=== PATIENT | female | born 1975 | race Caucasian/White ===

== ENCOUNTER 2017-07-26 15:31 | Emergency (ER) | payer OTHER ==
[~2017-07-26] VITALS: Ht 170.2 cm; Wt 80.3 kg
[~2017-07-26 15:31] MED LIST: CYCLOBENZAPRINE10 MG PO; NAPROSYN500 MG PO
[2017-07-26] MEDS ORDERED: BACLOFEN10 MG PO (16:29)
[2017-07-26] MEDS ORDERED: METHYLPREDNISOLO4 M1 PO (16:29)
== END 2017-07-26 16:37 | disposition home or self-care (01) ==
LOC: ED 15:31
DX: M70.72 Other bursitis of hip, left hip (principal); F17.200 Nicotine dependence, unspecified, uncomplicated
CPT/HCPCS: 73502; 99283

== ENCOUNTER 2019-06-08 12:00 | Emergency (ER) | payer BC ==
[~2019-06-08] VITALS: Ht 170.2 cm; Wt 180.0 kg
--- OUTSIDE RECORDS SUMMARY | ~2019-06-08 | XMS | Encounter Summary ---
Demographics + + + | Address | [address] | | | [place] [address] | + + + | Home Phone | | + + + | Preferred Language | Unknown | + + + | Marital Status | Single | + + + | Sabianist Affiliation | 1009 | + + + | Race | Unknown | + + + | Ethnic Group | Unknown | + + + Author + + + | Author | [facility] | | | and [place] | + + + | Organization | [facility] | | | and [place] | + + + | Address | Unknown | + + + | Phone | Unavailable | + + + Support + + +---------+ + | Name | Relationship | Address | Phone | + + +---------+ + | Ed [place] | ECON | Unknown | | + + +---------+ + Care Team Providers + +------+ + | Care Scooping Machine Tender Name | Role | Phone | + +------+ + | Irene Cortes MD | PCP | | + +------+ + Reason for Visit + + + | Reason | Comments | + + + | Procedure | left shoulder injection | + + + Service/Procedure (Routine) +--------+--------+ + + + + | Status | Reason | Specialty | Diagnoses / | Referred By | Referred To | | | | | Procedures | Contact | Contact | +--------+--------+ + + + + | Closed | | Physical | Diagnoses | Shaun, | Shaun, | | | | Medicine and | Subacromial | GIGI Sena | GIGI Sena | | | | Rehabilitatio | bursitis of | [address] | | | n | left | [address] | [address] | | | | | shoulder | [address] | [place], | | | | | joint | [place], | [place] [address] | | | | | Procedures | [place] [address] | Phone: | | | | | [place] | Phone: | [phone] | | | | | ARTHROCENTES | [phone] | Fax: | | | | | [place] | Fax: | [phone] | | | | | ASPIR&/INJ | [phone] | | | | | | MAJOR | | | | | | | JT/BURSA W/O | | | | | | | [place] | | | | | | | TRIAMCINOLON | | | | | | | E ACET INJ | | | | | | | NOS, 10 MG | | | | | | | In | | | | | | | Office | | | | | | | Left | | | | | | | Subacromial | | | | | | | Shoulder | | | | | | | Injection | | | +--------+--------+ + + + + Encounter Details +--------+ + + + + | Date | Type | Department | Care Team | Description | +--------+ + + + + | 07/26/ | Procedure | [facility] [place] | Nathen Dunn, | Subacromial bursitis | | 2019 | visit | PHYSIATRY [address] | PA-C [address] | of left shoulder | | | | [place], | [address] [place] | joint (Primary Dx) | | | | [place] [address] | [place] [address] | | | | | [phone] | [phone] | | | | | | | | +--------+ + + + + Social History + + + +--------+------+ | Tobacco Use | Types | Packs/Day | Years | Date | | | | | Used | | + + + +--------+------+ | Current Every Day | Cigarettes | 1.5 | | | | Smoker | | | | | + + + +--------+------+ + +---+---+---+ | Smokeless Tobacco: | | | | | Never Used | | | | + +---+---+---+ + + +---------+ + | Alcohol Use | Drinks/Week | oz/Week | Comments | + + +---------+ + | Yes | | | Rare | + + +---------+ + + + + | Sex Assigned at | Date Recorded | | | | + + + | Not on file | | + + + + + + + | Job Start Date | Occupation | Industry | + + + + | Not on file | Not on file | Not on file | + + + + + + + + | Travel History | Travel Start | Travel End | + + + + + + | No recent travel history available. | + + documented as of this encounter Last Filed Vital Signs + + + + + | Vital Sign | Reading | Time Taken | Comments | + + + + + | Blood Pressure | 156/94 | 07/26/2018 4:10 PM | | | | | PST | | + + + + + | Pulse | 86 | 07/26/2018 4:10 PM | | | | | PST | | + + + + + | Temperature | - | - | | + + + + + | Respiratory Rate | - | - | | + + + + + | Oxygen Saturation | - | - | | + + + + + | Inhaled Oxygen | - | - | | | Concentration | | | | + + + + + | Weight | 88 kg (194 lb) | 07/26/2018 4:10 PM | | | | | PST | | + + + + + | Height | 170.2 cm (5' 7") | 07/26/2018 4:10 PM | | | | | PST | | + + + + + | Body Mass Index | 30.38 | 07/26/2018 4:10 PM | | | | | PST | | + + + + + documented in this encounter Patient Instructions Patient Instructions Nathen Dunn PA-C - 07/26/2018 4:20 PM PSTFormatting of this note m ight be different from the original. - Ice the area as needed 20 minutes per hour. Multiple times as needed over the next few d ays. - Watch for signs of infection (redness around injection site, swelling, fever) - No strenuous activity for 24-48 hours after the procedure. - Please call the office with questions or concerns. Understanding Subscapular Bursitis A bursa is a thin, slippery, sac-like film that contains a small amount of fluid. A bursa i s often found in and around joints. It cushions and protects bones and soft tissues, and sto ps them from rubbing against each other. If a bursa becomes inflamed and irritated, it is kn own as bursitis. The subscapularis muscle is a large muscle across the front of the shoulder blade. The subs capular bursa is found between the subscapularis muscle and the chest wall. Inflammation of this bursa is called subscapular bursitis. Causes of subscapular bursitis These may include: Overuse of the shoulder from things like reaching, lifting, and throwing Injury from a fall or other accident Having rheumatoid arthritis or other types of inflammatory arthritis Symptoms of subscapular bursitis The shoulder may be painful or aching. This pain may be worse when raising your arm or lyin g on the affected shoulder. Treatment for subscapular bursitis These may include: Resting your shoulder. This allows the bursa to heal. Prescription or gzes-vco-nrqrkyp pain medicines. These help reduce inflammation, pain, a nd swelling. Cold packs or heat packs. These help reduce pain and swelling. Exercises. These improve shoulder flexibility and strength. Physical therapy. This may include exercises, postural re-education, or other treatments . Injections of medicine into the bursa. This may help reduce inflammation and relieve sym ptoms. Possible complications If your shoulder isn t given time to heal, symptoms may return or get worse. Also, the pr oblem may become long-term (chronic). This can lead to trouble moving the shoulder joint. When to call your healthcare provider Call your healthcare provider right away if you have any of these: Fever of 100.4F (38C) or higher, or as directed Symptoms that don t get better with treatment, or get worse New symptoms Date Last Reviewed: 08/08/201519995868-0433 [employer]. [address] [place] [address]. All righ ts reserved. This information is not intended as a substitute for professional medical care. Always follow your healthcare professional's instructions. documented in this encounter Progress Notes Nathen Dunn PA-C - 07/26/2018 4:20 PM PSTFormatting of this note might be different fro m the original. Encounter Diagnosis Name Primary? Subacromial bursitis of left shoulder joint Yes HPI: Laine Villatoro is a 43 y.o. female who is being seen today in followup for continued L EFT shoulder pain. The patient has been seen for these complaints in the past. Previously alejandro caraballo had good relief following procedure. Patient is interested in receiving subacromial bu rsa injections today and I did feel that was appropriate. Description of procedure: After the patient gave consent for the procedure the areas for i njection on the LEFT shoulder was located by palpation and marked. The areas were then prep ped with Betadine swabs and alcohol. A 25 gauge 1 1/2 inch needle was then inserted into th e subacromial space. Attempted aspiration showed no fluid in the needle hub. A combination of 1 mL of 40 mg/mL Kenalog and 2 mL each of 0.5% Bupivicaine and 1% Lidocaine was injected . The patient tolerated the procedures well and was instructed to ice the areas for 15-20 min utes several times over the next few days and to watch for any signs of infection. Patient will follow-up with as needed. ELECTRONICALLY SIGNED BY: Nathen Dunn PA-C, 07/26/18 documented in this en counter Plan of Treatment Not on filedocumented as of this encounter Visit Diagnoses + + | Diagnosis | + + | Subacromial bursitis of left shoulder joint - Primary | + + documented in this encounter Administered Medications + + + +-------+------+ + | Medication Order | MAR | Action | Dose | Rate | Site | | | Action | Date | | | | + + + +-------+------+ + | lidocaine 1% injection 4 mL 4 | Given by | 07/26/19 | 4 mLs | | Other | | mL, Other, ONCE, 07/26/18 at | Other | 19 4:33 | | | (Comment | | 1645, For 1 dose | | PM PST | | | ) | + + + +-------+------+ + +---+---+ | | | +---+---+ + + + +-------+---+ + | triamcinolone acetonide | Given by | 07/26/19 | 40 mg | | Other | | (KENALOG-40) 40 mg/mL injection | Other | 19 4:34 | | | (Comment | | 40 mg 40 mg, Other, ONCE, Tue | | PM PST | | | ) | | 07/26/18 at 1645, For 1 dose, | | | | | | | Shake well. Not for IV use., | | | | | | + + + +-------+---+ + +---+---+ | | | +---+---+ documented in this encounter
--- OUTSIDE RECORDS SUMMARY | ~2019-06-08 | XMS | Encounter Summary ---
Demographics + + + | Address | [address] | | | [place] [address] | + + + | Home Phone | | + + + | Preferred Language | Unknown | + + + | Marital Status | Single | + + + | Samaritan Affiliation | 1009 | + + + | Race | Unknown | + + + | Ethnic Group | Unknown | + + + Author + + + | Author | [facility] | | | and [place] | + + + | Organization | [facility] | | | and [place] | + + + | Address | Unknown | + + + | Phone | Unavailable | + + + Support + + +---------+ + | Name | Relationship | Address | Phone | + + +---------+ + | Ed [place] | ECON | Unknown | | + + +---------+ + Care Team Providers + +------+ + | Care Bench Molder Apprentice Name | Role | Phone | + +------+ + | Jacqueline Lozano | PCP | | + +------+ + Encounter Details +--------+ + + + + | Date | Type | Department | Care Team | Description | +--------+ + + + + | 11/12/ | Abstract | [facility] [place] | Sanju Brown, | | | 2017 | | PHYSIATRY [address] | MD [address] | | | | | [place], | [place] | | | | | [place] [address] | [address] | | | | | [phone] | | | +--------+ + + + [...] +---------+ + | Yes | | | Occasionally | + + +---------+ + + + [...] + + documented as of this encounter Plan of Treatment Not on filedocumented as of this encounter Visit Diagnoses Not on filedocumented in this encounter"
--- OUTSIDE RECORDS SUMMARY | ~2019-06-08 | XMS | Encounter Summary ---
Demographics + + + | Address | [address] | | | [place] [address] | + + + | Home Phone | | + + + | Preferred Language | Unknown | + + + | Marital Status | Single | + + + | Hinduism Affiliation | 1009 | + + + | Race | Unknown | + + + | Ethnic Group | Unknown | + + + Author + + + | Author | [facility] | | | and [place] | + + + | Organization | [facility] | | | and [place] | + + + | Address | Unknown | + + + | Phone | Unavailable | + + + Support + + +---------+ + | Name | Relationship | Address | Phone | + + +---------+ + | Ed [place] | ECON | Unknown | | + + +---------+ + Care Team Providers + +------+ + | Care Veneer Manufacturer Name | Role | Phone | + +------+ + | Rosalba Huerta | PCP | | + +------+ + Encounter Details +--------+ + + + + | Date | Type | Department | Care Team | Description | +--------+ + + + + | 03/02/ | Orders Only | [facility] [place] | Sanju Brown, | Joint stiffness | | 2018 | | PHYSIATRY [address] | MD [address] | (Primary Dx) | | | | [place], | [place] | | | | | [place] [address] | [id number] | | | | | [phone] | | | +--------+ + + + [...] + + documented as of this encounter Progress Notes Isabelle Boateng, Budget Engineer - 03/02/2018 10:52 AM PDTCalled to inform Laine Villatoro of lab orders for rheumatology consult. Laine Villatoro would like to have labs done at [facility]. Orders were faxed. Electronically signed by Isabelle Boateng, Budget Engineer at 2017 1:22 PM PDTdocumented in this encounter Plan of Treatment + +------+--------+ + + | Name | Type | Priori | Associated Diagnoses | Order Schedule | | | | ty | | | + +------+--------+ + + | C-Reactive Protein | Lab | Routin | Joint stiffness | 1 Occurrences | | | | e | | starting 03/02/2018 | | | | | | until 03/02/2019 | + +------+--------+ + + | Sedimentation Rate | Lab | Routin | Joint stiffness | Expected: | | | | e | | 03/02/2018, Expires: | | | | | | 03/02/2019 | + +------+--------+ + + | Rheumatoid Factor | Lab | Routin | Joint stiffness | 1 Occurrences | | IgA, IgG and IgM | | e | | starting 03/02/2018 | | | | | | until 03/02/2019 | + +------+--------+ + + documented as of this encounter Visit Diagnoses + + | Diagnosis | + + | Joint stiffness - Primary Stiffness of joint, not elsewhere classified, unspecified | | site | + + documented in this encounter"
--- OUTSIDE RECORDS SUMMARY | ~2019-06-08 | XMS | Encounter Summary ---
Demographics + + + | Address | [address] | | | [place] [address] | + + + | Home Phone | | + + + | Preferred Language | Unknown | + + + | Marital Status | Single | + + + | Yazidism Affiliation | Unknown | + + + | Race | White | + + + | Ethnic Group | Not or | + + + Author + + + | Author | [facility] | + + + | Organization | [facility] | + + + | Address | Unknown | + + + | Phone | Unavailable | + + + Support + + +---------+ + | Name | Relationship | Address | Phone | + + +---------+ + | Ed [place] | ECON | Unknown | | + + +---------+ + Care Team Providers + +------+ + | Care Cobol Application Developer Name | Role | Phone | + +------+ + PCP | Unavailable | + +------+ + Encounter Details +--------+ + + + + | Date | Type | Department | Care Team | Description | +--------+ + + + + | 02/24/ | Abstract | Rheumatology at | Unknown . | | | 2019 | | [facility] | | | | | | [address] | | | | | | [address] Mailcode: OP09 | | | | | | Physician's | | | | | | [place], [address] [place] [address] | | | | | | [place], [place] | | | | | | [address] | | | | | | [phone] | | | +--------+ + + + + Social History + +-------+ +--------+------+ | Tobacco Use | Types | Packs/Day | Years | Date | | | | | Used | | + +-------+ +--------+------+ | Never Assessed | | | | | + +-------+ +--------+------+ + + + | Sex Assigned at [...] as of this encounter Plan of Treatment +--------+---------+ + + + | Date | Type | Specialty | Care Team | Description | +--------+---------+ + + + | 08/09/ | Office | Rheumatology | Katlyn Nielson | | | 2020 | Visit | | [place] [address] | | | | | | [address] | | | | | | [place], [place] | | | | | | [address] | | | | | | [phone] | | | | | | | | +--------+---------+ + + + documented as of this encounter Visit Diagnoses Not on filedocumented in this encounter"
--- OUTSIDE RECORDS SUMMARY | ~2019-06-08 | XMS | Encounter Summary ---
Demographics + + + | Address | [address] | | | [place] [address] | + + + | Home Phone | | + + + | Preferred Language | Unknown | + + + | Marital Status | Single | + + + | Taoism Affiliation | 1009 | + + + | Race | Unknown | + + + | Ethnic Group | Unknown | + + + Author + + + | Author | [facility] | | | and [place] | + + + | Organization | [facility] | | | and [place] | + + + | Address | Unknown | + + + | Phone | Unavailable | + + + Support + + +---------+ + | Name | Relationship | Address | Phone | + + +---------+ + | Ed [place] | ECON | Unknown | | + + +---------+ + Care Team Providers + +------+ + | Care Appliance Service Technician Name | Role | Phone | + +------+ + | Jacqueline Lozano | PCP | | + +------+ + Reason for Visit + + + | Reason | Comments | + + + | Leg Pain | | | (Non-traumatic) | | + + + Encounter Details +--------+ + + + + | Date | Type | Department | Care Team | Description | +--------+ + + + + | 08/05/ | Emergency | [facility] | Marjan Del Cid MD | Left hip pain | | 2018 | | [facility] | [address] | (Primary Dx) | | | | CENTER [address] | [place], [place] | | | | | [place], [place] | [address] | | | | | [address] | | | | | | [phone] | | | +--------+ + + + + Social History + +-------+ +--------+------+ | Tobacco Use | Types | Packs/Day | Years | Date | | | | | Used | | + +-------+ +--------+------+ | Current Every Day | | | | | | Smoker | | | | | + +-------+ +--------+------+ + +---+---+---+ | Smokeless Tobacco: | | | | | Never Used | | | | + +---+---+---+ + + +---------+ + | Alcohol Use | Drinks/Week | oz/Week | Comments | + + +---------+ + | No | | | | + + +---------+ + + + [...] + + + | Blood Pressure | 116/53 | 08/05/2017 9:29 PM | | | | | PST | | + + + + + | Pulse | 78 | 08/05/2017 9:29 PM | | | | | PST | | + + + + + | Temperature | 36.9 C (98.5 F) | 08/05/2017 7:03 PM | | | | | PST | | + + + + + | Respiratory Rate | 16 | 08/05/2017 7:03 PM | | | | | PST | | + + + + + | Oxygen Saturation | 99% | 08/05/2017 9:29 PM | | | | | PST | | + + + + + | Inhaled Oxygen | - | - | | | Concentration | | | | + + + + + | Weight | 83.9 kg (185 lb) | 08/05/2017 7:03 PM | | | | | PST | | + + + + + | Height | 170.2 cm (5' 7") | 08/05/2017 7:03 PM | | | | | PST | | + + + + + | Body Mass Index | 28.98 | 08/05/2017 7:03 PM | | | | | PST | | + + + + + documented in this encounter Discharge Instructions AttachmentsThe following attachments cannot be sent through Care Everywhere.Hip Strain (Karen dooley)documented in this encounter Medications at Time of Discharge + + + +---------+ + + | Medication | Sig | Dispensed | Refills | Start | End Date | | | | | | Date | | + + + +---------+ + + | baclofen | Take 1 tablet by | 20 | 0 | 03/08/20 | | | (LIORESAL) 10 mg | mouth every 8 hours | tablet | | 18 | 8 | | tablet | as needed. | | | | | + + + +---------+ + + | buPROPion | Take 300 mg by mouth | | 0 | | | | (WELLBUTRIN XL) 300 | every morning. | | | | 8 | | mg 24 hr tablet | | | | | | + + + +---------+ + + | ibuprofen | Take 1 tablet by | 30 | 0 | 08/06/19 | | | (ADVIL,MOTRIN) 600 | mouth every 6 hours | tablet | | 18 | 8 | | MG tablet | as needed for Pain. | | | | | + + + +---------+ + + | propranolol | Take 80 mg by mouth | | 0 | | | | (INDERAL LA) 80 mg | Daily. | | | | 8 | | SR capsule | | | | | | + + + +---------+ + + documented as of this encounter Plan of Treatment Not on filedocumented as of this encounter Visit Diagnoses + + | Diagnosis | + + | Left hip pain - Primary Pain in joint, pelvic region and thigh | + + documented in this encounter Administered Medications + +--------+ +-------+------+------+ | Medication Order | MAR | Action | Dose | Rate | Site | | | Action | Date | | | | + +--------+ +-------+------+------+ | baclofen (LIORESAL) tablet 10 | Given | 08/06/19 | 10 mg | | | | mg 10 mg, Oral, ONCE, [facility] 08/05/17 | | 18 10:00 | | | | | at 2145, For 1 dose | | PM PST | | | | + +--------+ +-------+------+------+ +---+---+ | | | +---+---+ + +-------+ +-------+---+ + | ketorolac (TORADOL) injection | Given | 08/06/19 | 15 mg | | Deltoid- | | 15 mg 15 mg, Intramuscular, | | 18 9:45 | | | Left | | ONCE, [facility] 08/05/17 at 2145, For 1 | | PM PST | | | | | dose | | | | | | + +-------+ +-------+---+ + +---+---+ | | | +---+---+ documented in this encounter
--- OUTSIDE RECORDS SUMMARY | ~2019-06-08 | XMS | Encounter Summary ---
Demographics + + + | Address | [address] | | | [place] [address] | + + + | Home Phone | | + + + | Preferred Language | Unknown | + + + | Marital Status | Single | + + + | Nondenominational Affiliation | 1009 | + + + | Race | Unknown | + + + | Ethnic Group | Unknown | + + + Author + + + | Author | [facility] | | | and [place] | + + + | Organization | [facility] | | | and [place] | + + + | Address | Unknown | + + + | Phone | Unavailable | + + + Support + + +---------+ + | Name | Relationship | Address | Phone | + + +---------+ + | Ed [place] | ECON | Unknown | | + + +---------+ + Care Team Providers + +------+ + | Care Abseiling Instructor Name | Role | Phone | + +------+ + | Irene Cortes MD | PCP | | + +------+ + Reason for Visit + + + | Reason | Comments | + + + | Medication Refill | | + + + Encounter Details +--------+--------+ + + + | Date | Type | Department | Care Team | Description | +--------+--------+ + + + | 03/17/ | Refill | [facility] [place] | Nathen Dunn, | Medication Refill | | 2018 | | PHYSIATRY [address] | PA-C [address] | | | | | [place], | [address] [place] | | | | | [place] [address] | [place] [address] | | | | | [phone] | [phone] | | | | | | | | +--------+--------+ + + + Social History + + [...]
--- OUTSIDE RECORDS SUMMARY | ~2019-06-08 | XMS | Encounter Summary ---
Demographics + + + | Address | [address] | | | [place] [address] | + + + | Home Phone | | + + + | Preferred Language | Unknown | + + + | Marital Status | Single | + + + | Druze Affiliation | 1009 | + + + | Race | Unknown | + + + | Ethnic Group | Unknown | + + + Author + + + | Author | [facility] | | | and [place] | + + + | Organization | [facility] | | | and [place] | + + + | Address | Unknown | + + + | Phone | Unavailable | + + + Support + + +---------+ + | Name | Relationship | Address | Phone | + + +---------+ + | Ed [place] | ECON | Unknown | | + + +---------+ + Care Team Providers + +------+ + | Care Felt Puller Name | Role | Phone | + +------+ + PCP | Unavailable | + +------+ + Reason for Visit + + + | Reason | Comments | + + + | Surgery Appointment | | + + + Encounter Details +--------+ + + + + | Date | Type | Department | Care Team | Description | +--------+ + + + + | 01/17/ | Telephone | [facility] | Raul Monaco, | Surgery Appointment | | 2019 | | SURGICAL | [place] [address] | | | | | SPECIALITIES | [address] | | | | | ORTHOPEDICS BROACHING MACHINE REPAIRER | [place], [place] | | | | | [address] | [address] | | | | | [address] [place] | | | | | | [place], [place] | | | | | | [address] | | | | | | [phone] | | | +--------+ + + + [...]
--- OUTSIDE RECORDS SUMMARY | ~2019-06-08 | XMS | Encounter Summary ---
Demographics + + + | Address | [address] | | | [place] [address] | + + + | Home Phone | | + + + | Preferred Language | Unknown | + + + | Marital Status | Single | + + + | Latter-Day Affiliation | Unknown | + + + | Race | White | + + + | Ethnic Group | Not or | + + + Author + + + | Author | [facility] | + + + | Organization | [facility] | + + + | Address | Unknown | + + + | Phone | Unavailable | + + + Support + + +---------+ + | Name | Relationship | Address | Phone | + + +---------+ + | Ed [place] | ECON | Unknown | | + + +---------+ + Care Team Providers + +------+ + | Care Landscape Manager Name | Role | Phone | + [...] | | | | | | [place], [address] [place] [address] | | | | | | [place], [place] | | | | | | [address] | | | | | | [phone] | | | +--------+ + + + [...] 2020 | Visit | | [place] [address] | | | | | | [address] | | | | | | [place], [place] | | | | | | [address] | | | | | | [phone] | | | | | | | | +--------+---------+ + + + documented as of this encounter Visit Diagnoses Not on filedocumented in this encounter"
--- OUTSIDE RECORDS SUMMARY | ~2019-06-08 | XMS | Encounter Summary ---
Demographics + + + | Address | [address] | | | [place] [address] | + + + | Home Phone | | + + + | Preferred Language | Unknown | + + + | Marital Status | Single | + + + | Latter-Day Affiliation | 1009 | + + + | Race | Unknown | + + + | Ethnic Group | Unknown | + + + Author + + + | Author | [facility] | | | and [place] | + + + | Organization | [facility] | | | and [place] | + + + | Address | Unknown | + + + | Phone | Unavailable | + + + Support + + +---------+ + | Name | Relationship | Address | Phone | + + +---------+ + | Ed Amory | ECON | Unknown | | + + +---------+ + Care Team Providers + +------+ + | Care Transfill Technician Name | Role | Phone | + +------+ + PCP | Unavailable | + +------+ + Encounter Details +--------+ + + + + | Date | Type | Department | Care Team | Description | +--------+ + + + + | 11/13/ | Hospital | [facility] | Conversion | Threatened premature | | 2000 - | Encounter | [facility] | Transaction, | labor, | | | | AND DELIVERY 888 | Provider Unknown | antepartum(644.03) | | 11/16/ | | ROSIBEL RIDER | | | | 2000 | | [place], [place] | (Fax) | | | | | [address] | | | | | | [phone] | | | +--------+ + + + [...] + | Diagnosis | + + | Threatened premature labor, antepartum(644.03) Threatened premature labor, antepartum | + + documented in this encounter"
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
--- OUTSIDE RECORDS SUMMARY | ~2019-06-08 | XMS | Clinical Summary ---
Demographics + + + | Address | [address] | | | [place] [address] | + + + | Home Phone | | + + + | Preferred Language | Unknown | + + + | Marital Status | Single | + + + | Confucianist Affiliation | Unknown | + + + | Race | White | + + + | Ethnic Group | Not or | + + + Author + + + | Author | [facility] | + + + | Organization | [facility] | + + + | Address | Unknown | + + + | Phone | Unavailable | + + + Support + + +---------+ + | Name | Relationship | Address | Phone | + + +---------+ + | Ed [place] | ECON | Unknown | | + + +---------+ + Care Team Providers + +------+ + | Care Composition Professor Name | Role | Phone | + +------+ + | Irene Cortes MD | PCP | | + +------+ + Source Comments VANNESSA is fully live on both [facility] and [facility] InPatient[facility] Allergies Not on File Medications Not on file Active Problems Not on file Social History + +-------+ +--------+------+ | Tobacco [...] recent travel history available. | + + Last Filed Vital Signs Not on file Plan of Treatment +--------+---------+ + + + | Date | Type | Specialty | Care Team | Description | +--------+---------+ + + + | 08/09/ | Office | Rheumatology | Katlyn Nielson | | | 2020 | Visit | | [place] [address] | | | | | | [address] | | | | | | [place], [place] | | | | | | [address] | | | | | | [phone] | | | | | | | | +--------+---------+ + + + + + + + + | Health Maintenance | Due Date | Last Done | Comments | + + + + + | Influenza (Flu) | | | | | vaccination (#1) | 9 | | | + + + + + | Pneumococcal | Aged Out | | No longer eligible | | vaccination | | | based on patient's | | | | | age to complete this | | | | | topic | + + + + + Results Not on filefrom Last 3 Months Insurance + +--------+ +--------+ + +------+ | Payer | Benefi | Subscriber | Effect | Phone | Address | Type | | | t Plan | ID | susana | | | | | | / | | Dates | | | | | | Group | | | | | | + +--------+ +--------+ + +------+ | [employer]UE | BCBS | [phone] | | [phone] | [address] | PPO | | SHIELD | OUT OF | xxx | [phone] | [id number] [address] | | | | STATE | | esent | | [place], | | | | | | | | [place] | | | | | | | | [address] | | + +--------+ +--------+ + +------+ + +--------+ +--------+ + + | Guarantor Name | Accoun | Relation to | Date | Phone | Billing Address | | | t Type | Patient | of | | | | | | | | | | + +--------+ +--------+ + + | Laine Villatoro P | Person | Self | [birth year] | [address] | | al/Fam | | 1976 | [phone] | [place] [address] | | | [place] | | | 4 (Home) | | + +--------+ +--------+ + +"
--- OUTSIDE RECORDS SUMMARY | ~2019-06-08 | XMS | Encounter Summary ---
Demographics + + + | Address | [address] | | | [place] [address] | + + + | Home Phone | | + + + | Preferred Language | Unknown | + + + | Marital Status | Single | + + + | Oriental Orthodox Affiliation | 1009 | + + + | Race | Unknown | + + + | Ethnic Group | Unknown | + + + Author + + + | Author | [facility] | | | and [place] | + + + | Organization | [facility] | | | and [place] | + + + | Address | Unknown | + + + | Phone | Unavailable | + + + Support + + +---------+ + | Name | Relationship | Address | Phone | + + +---------+ + | Ed Casa | ECON | Unknown | | + + +---------+ + Care Team Providers + +------+ + | Care Carpentry Teacher Name | Role | Phone | + +------+ + | Jacqueline Lozano | PCP | | + +------+ + Reason for Visit + + + | Reason | Comments | + + + | Lab Results | | + + + Encounter Details +--------+ + + + + | Date | Type | Department | Care Team | Description | +--------+ + + + + | 07/05/ | Telephone | [facility] | Sanju Brown, | Lab Results | | 2018 | | [address]SIATRY [address] | MD [address] | | | | | [place], | [place], [place] | | | | | [place] [address] | [address] | | | | | [phone] | | | +--------+ + + + [...]
--- OUTSIDE RECORDS SUMMARY | ~2019-06-08 | XMS | Clinical Summary ---
Demographics + + + | Address | [address] | | | [place] [address] | + + + | Home Phone | | + + + | Preferred Language | Unknown | + + + | Marital Status | | + + + | Sabianism Affiliation | 1009 | + + + | Race | Unknown | + + + | Ethnic Group | Unknown | + + + Author + + + | Author | [facility] (Historical as of | | | 01-14-19) | + + + | Organization | [facility] (Historical as of | | | 01-14-19) | + + + | Address | Unknown | + + + | Phone | Unavailable | + + + Support + + + + + | Name | Relationship | Address | Phone | + + + + + | [place],Freddy | ECON | [address] | | | | | [facility] [place] | | | | | [address] | | + + + + + Care Team Providers + +------+ + | Care Aircraft Cabin Cleaner Name | Role | Phone | + +------+ + | Jacqueline Lozano NP | PP | | + +------+ + Allergies No Known Allergies Current Medications + +------+-------+---------+------+------+-------+ | Prescription | Sig. | Disp. | Refills | Star | End | Statu | | | | | | t | Date | s | | | | | | Date | | | + +------+-------+---------+------+------+-------+ | CHANTIX CONTINUING | | | | 03/2 | | Activ | | MONTH CANDIS 1 MG | | | | 0/20 | | e | | tablet | | | | 17 | | | + +------+-------+---------+------+------+-------+ Active Problems No known active problems Family History + +------+--------+ + | Relation | Name | Status | Comments | + +------+--------+ + | Father | | Alive | | + +------+--------+ + | Mother | | Alive | | + +------+--------+ + Social History + +-------+ +--------+------+ | Tobacco Use | Types | Packs/Day | Years | Date | | | | | Used | | + +-------+ +--------+------+ | Former Smoker | | | | | + +-------+ +--------+------+ + + +---------+ + | Alcohol Use | Drinks/We | oz/Week | Comments | | | ek | | | + + +---------+ + | Yes | | | occasional | + + +---------+ + + + + | Sex Assigned at | Date Recorded | | | | + + + | Not on file | | + + + Last Filed Vital Signs + + + + | Vital Sign | Reading | Time Taken | + + + + | Blood Pressure | 124/69 | 09/02/2016 1:15 PM PDT | + + + + | Pulse | 63 | 09/02/2016 1:15 PM PDT | + + + + | Temperature | 36.7 C (98.1 F) | 09/02/2016 1:15 PM PDT | + + + + | Respiratory Rate | - | - | + + + + | Oxygen Saturation | - | - | + + + + | Inhaled Oxygen | - | - | | Concentration | | | + + + + | Weight | 82.1 kg (181 lb) | 09/02/2016 1:15 PM PDT | + + + + | Height | 172.7 cm (5' 8") | 09/02/2016 1:15 PM PDT | + + + + | Body Mass Index | 27.52 | 09/02/2016 1:15 PM PDT | + + + + Plan of Treatment + + + + + | Health Maintenance | Due Date | Last Done | Comments | + + + + + | Vaccine: | | | | | Dtap/Tdap/Td (1 - | 4 | | | | Tdap) | | | | + + + + + | Cervical Cancer | | | | | Screening (Pap) | 5 | | | + + + + + | Vaccine: Influenza | | | | | (#1) | 9 | | | + + + + + Results Not on filefrom Last 3 Months Insurance + +--------+ +------+-------+ + | Payer | Benefi | Subscriber | Type | Phone | Address | | | t Plan | ID | | | | | | / | | | | | | | Group | | | | | + +--------+ +------+-------+ + | MEDICAID | [place] | [id number] | | | [address] | | | [place] | | | | [place] | | | [place] | | | | [address] | | | [employer] | | | | | + +--------+ +------+-------+ + + +--------+ +--------+ + + | Guarantor Name | Accoun | Relation to | Date | Phone | Billing Address | | | t Type | Patient | of | | | | | | | | | | + +--------+ +--------+ + + | LAINE VILLATORO | Person | Self [birth year] | Work: | [address] | | | al/Fam | | 1976 | [phone] | [place] [address] | | | [address] | | | [address]: | | | | | | | | | | | | | | [phone] | | | | | | [phone] | | + +--------+ +--------+ + +
--- OUTSIDE RECORDS SUMMARY | ~2019-06-08 | XMS | Encounter Summary ---
Demographics + + + | Address | [address] | | | [place] [address] | + + + | Home Phone [...] Author + + + | Author | [facility] | | | and [place] | + + + | Organization | [facility] | | | and [place] | + + + | Address | Unknown | + + + | Phone | Unavailable | + + + Support + + +---------+ + | Name | Relationship | Address | Phone | + + +---------+ + | Ed [place] | ECON | Unknown | | + + +---------+ + Care Team Providers + +------+ + | Care Hall Clerk Name | Role | Phone | + +------+ + PCP | Unavailable | + +------+ + Reason for Visit +--------+ + | Reason | Comments | +--------+ + | Pain | | +--------+ + Encounter Details +--------+ + + + + | Date | Type | Department | Care Team | Description | +--------+ + + + + | 06/07/ | Telephone | [facility] | Nathen Dunn, | Pain | | 2019 | | PHYSIATRY [address] | PA-C [address] | | | | | [place], | [address] [place] | | | | | [place] [address] | [place] [address] | | | | | [phone] | [phone] | | | | | | | [...]
--- OUTSIDE RECORDS SUMMARY | ~2019-06-08 | XMS | Encounter Summary ---
Demographics + + + | Address | [address] | | | [place] [address] | + + + | Home Phone | | + + + | Preferred Language | Unknown | + + + | Marital Status | Single | + + + | Sikh Affiliation | 1009 | + + + | Race | Unknown | + + + | Ethnic Group | Unknown | + + + Author + + + | Author | [facility] [place] | | | and iGllesana | + + + | Organization | [facility] [place] | | | and [place] | + + + | Address | Unknown | + + + | Phone | Unavailable | + + + Support + + +---------+ + | Name | Relationship | Address | Phone | + + +---------+ + | Ed [place] | ECON | Unknown | | + + +---------+ + Care Team Providers + +------+ + | Care Radio Board Operator Name | Role | Phone | + +------+ + | Rosalba Huerta | PCP | | + +------+ + Encounter Details +--------+ + + + + | Date | Type | Department | Care Team | Description | +--------+ + + + + | 12/27/ | Orders Only | [facility] | Jeremy Goodwin | Ganglion cyst of | | 2017 | | ORTHOPEDIC SURGERY | [address] | finger of right hand | | | | [address] [facility] | Prince Khan | (Primary Dx) | | | | [place] | [place] [address] | | | | | [address] | [phone] | | | | | [phone] | | | +--------+ + + + [...] Not on filedocumented as of this encounter Results XR Hand Right 3 + Vw (12/30/2017 8:42 AM PDT) + + | Specimen | + + | | + + + + + | Narrative | Performed At | + + + | THREE VIEWS RIGHT HAND 12/30/2017 8:41 AM CLINICAL HISTORY: RIGHT | [facility] | | HAND GANGLION CYST COMPARISON: None available FINDINGS: The | | | bones are well-mineralized. No fracture or erosion is evident. | | | There are moderate to severe degenerative changes of the first CMC | | | joint, with slight subluxation of the base of the first metacarpal | | | relative to the trapezium. Joint spaces elsewhere are maintained. | | | No soft tissue abnormality is visible. IMPRESSION - 1. 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 Dictated | | | and Signed by: Willis Treviño MD Electronically signed: 12/30/2017 | | | 9:12 AM | | + + + + + | Procedure Note | + + | Jonathan, Rad Results In - 12/30/2017 9:15 AM PDT THREE VIEWS RIGHT HAND 12/30/2017 8:41 AM | | | | CLINICAL HISTORY: RIGHT HAND GANGLION CYST | | | | COMPARISON: None available | | | | FINDINGS: The bones are well-mineralized. No fracture or erosion is evident. | | There are moderate to severe degenerative changes of the first CMC joint, with | | slight subluxation of the base of the first metacarpal relative to the | | trapezium. Joint spaces elsewhere are maintained. No soft tissue abnormality | | is visible. | | | | IMPRESSION - | | 1. 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 | | | | Dictated and Signed by: Willis Treviño MD | | Electronically signed: 12/30/2017 9:12 AM | + + + +---------+ + + | Performing | Address | City/State/Zipcode | Phone Number | | Organization | | | | + +---------+ + + | [facility] | | | | + +---------+ + + documented in this encounter Visit Diagnoses + + | Diagnosis | + + | Ganglion cyst of finger of right hand - Primary | + + documented in this encounter"
--- OUTSIDE RECORDS SUMMARY | ~2019-06-08 | XMS | Encounter Summary ---
Demographics + + + | Address | [address] | | | [place] [address] | + + + | Home Phone | | + + + | Preferred Language | Unknown | + + + | Marital Status | Single | + + + | Pentecostal Affiliation | 1009 | + + + | Race | Unknown | + + + | Ethnic Group | Unknown | + + + Author + + + | Author | [facility] [place] | | | and [place] | + + + | Organization | [facility] [place] | | | and [place] | + + + | Address | Unknown | + + + | Phone | Unavailable | + + + Support + + +---------+ + | Name | Relationship | Address | Phone | + + +---------+ + | Ed [place] | ECON | Unknown | | + + +---------+ + Care Team Providers + +------+ + | Care Pastry Cook Helper Name | Role | Phone | + +------+ + | Irene Cortes MD | PCP | | + +------+ + Reason for Referral Evaluate & Treat (Routine) + + + + + + + | Status | Reason | Specialty | Diagnoses / | Referred By | Referred To | | | | | Procedures | Contact | Contact | + + + + + + + | Authorized | Specialty | Sports | Diagnoses | Shaun, | Carlos Enrique, | | | Services | Medicine / | Left | [place] | MD Curtis | | | Required | Family | shoulder | [address] | | | | Medicine | tendonitis | [address] | [address] [place] | | | | | | [address] | [place], [place] | | | | | | [place], | [address] Phone: | | | | | | [place] [address] | [phone] | | | | | | Phone: | Fax: | | | | | | [phone] | [phone] | | | | | | Fax: | | | | | | | [phone] | | + + + + + + + Encounter Details +--------+ + + + + | Date | Type | Department | Care Team | Description | +--------+ + + + + | 02/02/ | Orders Only | [facility] [place] | Shaun, Nathen, | Left shoulder | | 2019 | | PHYSIATRY [address] | PA-C [address] | tendonitis | | | | [place], | [address] [place] | | | | | [place] [address] | [place] [address] | | | | | [phone] | [phone] | | | | | | | [...] as of this encounter Plan of Treatment + + +--------+ + + | Name | Type | Priori | Associated Diagnoses | Order Schedule | | | | ty | | | + + +--------+ + + | Dr Monaco Referral | Outpatient | Routin | Left shoulder | Ordered: 02/02/2019 | | | Referral | e | tendonitis | | + + +--------+ + + documented as of this encounter Visit Diagnoses + + | Diagnosis | + + | Left shoulder tendonitis | + + documented in this encounter"
--- OUTSIDE RECORDS SUMMARY | ~2019-06-08 | XMS | Encounter Summary ---
Demographics + + + | Address | [address] | | | [place] [address] | + + + | Home Phone | | + + + | Preferred Language | Unknown | + + + | Marital Status | Single | + + + | Jain Affiliation | 1009 | + + + | Race | Unknown | + + + | Ethnic Group | Unknown | + + + Author + + + | Author | [facility] [place] | | | and [place] | + + + | Organization | [facility] [place] | | | and [place] | + + + | Address | Unknown | + + + | Phone | Unavailable | + + + Support + + +---------+ + | Name | Relationship | Address | Phone | + + +---------+ + | Ed [place] | ECON | Unknown | | + + +---------+ + Care Team Providers + +------+ + | Care Wire Weaver Name | Role | Phone | + +------+ + | Rosalba Huerta | PCP | | + +------+ + Encounter Details +--------+ + + + + | Date | Type | Department | Care Team | Description | +--------+ + + + + | 02/21/ | Ancillary | [facility] | Raul Monaco, | | | 2018 | Procedure | SURGICAL | [address] | | | | | SPECIALITIES | [address] | | | | | ORTHOPED[facility] SPECIALIST | [place], [place] | | | | | [address] | [address] | | | | | [address] [place] | | | | | | [place] | | | | | | [address] | | | | | | [phone] | | | +--------+ + + + [...] Not on filedocumented as of this encounter Procedures + +--------+ + + + | Procedure Name | Priori | Date/Time | Associated Diagnosis | Comments | | | ty | | | | + +--------+ + + + | XR HIP LEFT 2-3 | Routin | 02/21/2018 | Left hip pain | Results for this | | VIEWS | e | 2:29 PM | | procedure are in the | | | | PDT | | results section. | + +--------+ + + + documented in this encounter Results XR Hip Left 2-3 Views (02/21/2018 2:29 PM PDT) + + | Specimen | + + | | + + + + + | Narrative | Performed At | + + + | | [place] [facility] | | Indications: Left hip pain | [place] - | | | [facility] | | AP pelvis and 2 views left hip reveal: | | | No fracture or dislocations seen. No lytic or blastic processes. | | | Tonnis Grade 0 | | | Center edge angle 52 degrees | | | Alpha angle 45 degrees | | | Joint space 5 mm | | | Superior retroversion of the acetabulum is seen. | | | | | | Comparison: None | | | Impression: Left hip pincer femoral acetabular impingement | | | | | + + + + + + + + | Performing | Address | City/State/Zipcode | Phone Number | | Organization | | | | + + + + + | [place] | [address] | [place] [address] | [phone] | | - IM[facility]ING - [facility] | [place] | | | + + + + + documented in this encounter Visit Diagnoses Not on filedocumented in this encounter"
--- OUTSIDE RECORDS SUMMARY | ~2019-06-08 | XMS | Encounter Summary ---
Demographics + + + | Address | [address] | | | [place] [address] | + + + | Home Phone | | + + + | Preferred Language | Unknown | + + + | Marital Status | Single | + + + | Anabaptism Affiliation | 1009 | + + + | Race | Unknown | + + + | Ethnic Group | Unknown | + + + Author + + + | Author | [facility] [place] | | | and [place] | + + + | Organization | [facility] [place] | | | and [place] | + + + | Address | Unknown | + + + | Phone | Unavailable | + + + Support + + +---------+ + | Name | Relationship | Address | Phone | + + +---------+ + | Ed [place] | ECON | Unknown | | + + +---------+ + Care Team Providers + +------+ + | Care Pattern Chain Maker Supervisor Name | Role | Phone | + +------+ + | Irene Cortes MD | PCP | | + +------+ + Reason for Referral Diagnostic/Screening (Routine) +--------+--------+ + + + + | Status | Reason | Specialty | Diagnoses / | Referred By | Referred To | | | | | Procedures | Contact | Contact | +--------+--------+ + + + + | Closed | | Radiology | Diagnoses | Shaun, | [facility] | | | | | Shoulder | GIGI Sena | [address] | | | | | pain, | [address] | [place], | | | | | unspecified | [address] | [place] | | | | | chronicity, | [address] | [address] | | | | | unspecified | [place], | Phone: | | | | | laterality | [place] [address] | [phone] | | | | | Procedures | Phone: | Fax: | | | | | MRI Shoulder | [phone] | [phone] | | | | | Left | Fax: | | | | | | Arthrogram w | [phone] | | | | | | Contrast | | | +--------+--------+ + + + + Reason for Visit Diagnostic/Screening (Routine) +--------+--------+ + + + + | Status | Reason | Specialty | Diagnoses / | Referred By | Referred To | | | | | Procedures | Contact | Contact | +--------+--------+ + + + + | Closed | | Radiology | Diagnoses | Shaun, | [facility] | | | | | Shoulder | GIGI Sena | [address] | | | | | pain, | [address] | [place], | | | | | unspecified | [address] | [place] | | | | | chronicity, | [address] | [address] | | | | | unspecified | [place], | Phone: | | | | | laterality | [place] [address] | [phone] | | | | | Procedures | Phone: | Fax: | | | | | MRI Shoulder | [phone] | [phone] | | | | | Left | Fax: | | | | | | Arthrogram w | [phone] | | | | | | Contrast | | | +--------+--------+ + + + + Encounter Details +--------+ + + + + | Date | Type | Department | Care Team | Description | +--------+ + + + + | 01/06/ | Hospital | [facility] | Nathen Dunn, | Shoulder pain, | | 2019 | Encounter | MED CTR MRI [address] | PA-C [address] | unspecified | | | | [place], | [address] [place] | chronicity, | | | | [place] [address] | [place] [address] | unspecified | | | | [phone] | [phone] | laterality | | | | | | | [...] + + documented as of this encounter Medications at Time of Discharge + + + +---------+ + + | Medication | Sig | Dispensed | Refills | Start | End Date | | | | | | Date | | + + + +---------+ + + | baclofen | TAKE 1 TABLET BY | 270 | 0 | 11/25/19 | | | (LIORESAL) 20 mg | MOUTH THREE TIMES | tablet | | 19 | | | tablet | DAILY WITH FOOD OR | | | | | | | MILK | | | | | + + + +---------+ + + | DULoxetine | Take 60 mg by mouth | | 0 | | | | (CYMBALTA) [address] | Daily. | | | | | | capsule | | | | | | + + + +---------+ + + | gabapentin | Take 600 mg by mouth | | 1 | 04/13/20 | | | (NEURONTIN) 300 mg | Daily. | | | 19 | | | capsule | | | | | | + + + +---------+ + + | gabapentin | Take 600 mg by mouth | | 0 | | | | (NEURONTIN) 600 MG | 3 times daily. | | | | | | tablet | | | | | | + + + +---------+ + + | ibuprofen | Take 800 mg by mouth | | 0 | | | | (ADVIL,MOTRIN) 800 | every 6 hours as | | | | | | MG tablet | needed for Pain. | | | | | + + + +---------+ + + | METFORMIN HCL PO | Take 2 tablets by | | 0 | | | | | mouth Daily. PATIENT | | | | | | | UNSURE OF MG DOSING | | | | | | | | | | | | + + + +---------+ + + | traZODone | Take 300 tablets by | | 0 | 11/24/19 | | | (DESYREL) 150 MG | mouth Daily. | | | 19 | | | tablet | | | | | | + + + +---------+ + + | TRULICITY 0.75 | Inject 0.5 mLs as | | 4 | 11/15/19 | | | MG/0.5ML injection | directed Daily. | | | 19 | | + + + +---------+ + + documented as of this encounter Plan of Treatment Not on filedocumented as of this encounter Procedures + +--------+ + + + | Procedure Name | Priori | Date/Time | Associated Diagnosis | Comments | | | ty | | | | + +--------+ + + + | MRI SHOULDER LEFT | Routin | 01/06/2019 | Shoulder pain, | Results for this | | ARTHROGRAM W | e | 10:59 AM | unspecified | procedure are in the | | CONTRAST | | PDT | chronicity, | results section. | | | | | unspecified | | | | | | laterality | | + +--------+ + + + documented in this encounter Results MRI Shoulder Left Arthrogram w Contrast (01/06/2019 10:59 AM PDT) + + | Specimen | + + | | + + + + + | Narrative | Performed At | + + + | MRI SHOULDER LEFT ARTHROGRAM W CONTRAST 01/06/2019 10:43 AM | [facility] | | HISTORY: Left shoulder pain. COMPARISON: Multiple priors. | | | PROTOCOL: After arthrogram, the following sequences were obtained: | | | Axial T1 fat sat, coronal T1 fat sat, sagittal T1 fat sat, coronal | | | proton density fat sat, sagittal proton density fat sat, coronal T2. | | | FINDINGS: There is mild interstitial tearing of the supraspinatus | | | tendon. The infraspinatus and teres minor are intact. Mild | | | interstitial tearing is observed of the subscapularis tendon. | | | There is some mild high signal involving the lower portion of the long | | | head of biceps tendon and within the arcuate segment consistent with | | | tendinopathy. There is normal attachment to the labrum. A small tear | | | is in the inferior labrum measuring 3 mm. The rotator interval | | | is normal. The AC joint is intact. A type 2 acromion is seen. The | | | glenohumeral joint has a normal appearance. There is normal osseous | | | signal. Contrast is visualized within the joint, consistent with | | | arthrography. There is no evidence for bursitis. IMPRESSION - | | | Mild interstitial tearing of supraspinatus and subscapularis tendons. | | | Small tear of the inferior labrum. Tendinopathy involving | | | lower portion of the long head of the biceps tendon and within the | | | arcuate segment. Dictated and Signed by: Jerome Hartman MD | | | Electronically signed: 01/06/2019 12:01 PM | | + + + + + | Procedure Note | + + | Jonathan, Rad Results In - 01/06/2019 12:04 PM PDT MRI SHOULDER LEFT ARTHROGRAM W CONTRAST | | 01/06/2019 10:43 AM HISTORY: Left shoulder pain.COMPARISON: Multiple priors.PROTOCOL: | | After arthrogram, the following sequences were obtained: Axial T1 fatsat, coronal T1 fat | | sat, sagittal T1 fat sat, coronal proton density fat sat,sagittal proton density fat | | sat, coronal T2.FINDINGS:There is mild interstitial tearing of the supraspinatus tendon. | | Theinfraspinatus and teres minor are intact. Mild interstitial tearing is observedof | | the subscapularis tendon.There is some mild high signal involving the lower portion of | | the long head ofbiceps tendon and within the arcuate segment consistent with | | tendinopathy. Thereis normal attachment to the labrum. A small tear is in the inferior | | labrummeasuring 3 mm.The rotator interval is normal. The AC joint is intact. A type 2 | | acromion isseen. The glenohumeral joint has a normal appearance. There is normal | | osseoussignal.Contrast is visualized within the joint, consistent with arthrography. | | There isno evidence for bursitis.IMPRESSION -Mild interstitial tearing of supraspinatus | | and subscapularis tendons.Small tear of the inferior labrum.Tendinopathy involving lower | | portion of the long head of the biceps tendon andwithin the arcuate segment.Dictated | | and Signed by: Jerome Hartman MD Electronically signed: 01/06/2019 12:01 PM | |biceps tendon and within the arcuate segment consistent with tendinopathy. There | |is normal attachment to the labrum. A small tear is in the inferior labrum | |measuring 3 mm. | | | |The rotator interval is normal. The AC joint is intact. A type 2 acromion is | |seen. The glenohumeral joint has a normal appearance. There is normal osseous | |signal. | | | |Contrast is visualized within the joint, consistent with arthrography. There is | |no evidence for bursitis. | | | |IMPRESSION - | |Mild interstitial tearing of supraspinatus and subscapularis tendons. | | | |Small tear of the inferior labrum. | | | |Tendinopathy involving lower portion of the long head of the biceps tendon and | |within the arcuate segment. | | | | | |Dictated and Signed by: Jerome Hartman MD | | Electronically signed: 01/06/2019 12:01 PM | + + + +---------+ + + | Performing | Address | City/State/Zipcode | Phone Number | | Organization | | | | + +---------+ + + | [facility] | | | | + +---------+ + + documented in this encounter Visit Diagnoses + + | Diagnosis | + + | Shoulder pain, unspecified chronicity, unspecified laterality | + + documented in this encounter"
--- OUTSIDE RECORDS SUMMARY | ~2019-06-08 | XMS | Encounter Summary ---
Demographics + + + | Address | [address] | | | [place] [address] | + + + | Home Phone [...] + + + | Author | [facility] [place] | | | and [place] | + + + | Organization | [facility] [place] | | | and [place] | + + + | Address | Unknown | + + + | Phone | Unavailable | + + + Support + + +---------+ + | Name | Relationship | Address | Phone | + + +---------+ + | Ed [place] | ECON | Unknown | | + + +---------+ + Care Team Providers + +------+ + | Care Char Filter Tank Tender Head Name | Role | Phone | + +------+ + | Rosalba Huerta | PCP | | + +------+ + Encounter Details +--------+ + + + + | Date | Type | Department | Care Team | Description | +--------+ + + + + | 02/15/ | Episode | [facility] [place] | Yoselyn Subramanian, | | | 2017 | Changes | ORTHOPEDIC SURGERY | Brand Ambassador Promotional Model | | | | | [place] | | | | | | [place] | | | | | | [address] | | | | | | [phone] | | | +--------+ + + + [...]
--- OUTSIDE RECORDS SUMMARY | ~2019-06-08 | XMS | Encounter Summary ---
Demographics + + + | Address | [address] | | | [place] [address] | + + + | Home Phone | | + + + | Preferred Language | Unknown | + + + | Marital Status | Single | + + + | Hinduism Affiliation | 1009 | + + + | Race | Unknown | + + + | Ethnic Group | Unknown | + + + Author + + + | Author | [facility] [place] | | | and [place] | + + + | Organization | [facility] [place] | | | and [place] | + + + | Address | Unknown | + + + | Phone | Unavailable | + + + Support + + +---------+ + | Name | Relationship | Address | Phone | + + +---------+ + | Ed [place] | ECON | Unknown | | + + +---------+ + Care Team Providers + +------+ + | Care High [employer] Agriculture Teacher Name | Role | Phone | [...] Shoulder | GIGI Sena | [address] | | | | | pain, | [address] | [place], | | | | | unspecified | [address] | [place] | | | | | chronicity, | [address] | [address] | | | | | unspecified | [place], | Phone: | | | | | laterality | [place] [address] | [phone] | | | | | Procedures | Phone: | Fax: | | | | | MRI Shoulder | [phone] | [phone] | | | | | Left | Fax: | | | | | | Arthrogram w | [phone] | | | | | | Contrast [...] Shoulder | GIGI Sena | [address] | | | | | pain, | [address] | [place], | | | | | unspecified | [address] | [place] | | | | | chronicity, | [address] | [address] | | | | | unspecified | [place], | Phone: | | | | | laterality | [place] [address] | [phone] | | | | | Procedures | Phone: | Fax: | | | | | MRI Shoulder | [phone] | [phone] | | | | | Left | Fax: | | | | | | Arthrogram w | [phone] | | | | | | Contrast | | | +--------+--------+ + + + + Encounter Details +--------+ + + + + | Date | Type | Department | Care Team | Description | +--------+ + + + + | 01/06/ | Hospital | [facility] | Nathen Dunn, | Shoulder pain, | | 2019 | Encounter | MED CTR MRI [address] | PA-C [address] | unspecified | | | | [place], | [address] [place] | chronicity, | | | | [place] [address] | [place] [address] | unspecified | | | | [phone] | [phone] | laterality | | | | | [...]
--- OUTSIDE RECORDS SUMMARY | ~2019-06-08 | XMS | Encounter Summary ---
Demographics + + + | Address | [address] | | | [place] [address] | + + + | Home Phone | | + + + | Preferred Language | Unknown | + + + | Marital Status | Single | + + + | Sabianism Affiliation | 1009 | + + + | Race | Unknown | + + + | Ethnic Group | Unknown | + + + Author + + + | Author | [facility] [place] | | | and [place] | + + + | Organization | [facility] [place] | | | and [place] | + + + | Address | Unknown | + + + | Phone | Unavailable | + + + Support + + +---------+ + | Name | Relationship | Address | Phone | + + +---------+ + | Ed [place] | ECON | Unknown | | + + +---------+ + Care Team Providers + +------+ + | Care Sample Washer Name | Role | Phone | + [...] Description | +--------+--------+ + + + | 04/19/ | Refill | [facility] [place] | Nathen Dunn, | Medication Refill | | 2018 | | PHYSIATRY [address] | PA-C [address] | | | | | [place], | [address] [place] | | | | | [place] [address] | [place] [address] | | | | | [phone] | [phone] | | | | | | | [...]
--- OUTSIDE RECORDS SUMMARY | ~2019-06-08 | XMS | Encounter Summary ---
Demographics + + + | Address | [address] | | | [place] [address] | + + + | Home Phone | | + + + | Preferred Language | Unknown | + + + | Marital Status | Single | + + + | Congregation Affiliation | 1009 | + + + | Race | Unknown | + + + | Ethnic Group | Unknown | + + + Author + + + | Author | [facility] [place] | | | and [place] | + + + | Organization | [facility] [place] | | | and [place] | + + + | Address | Unknown | + + + | Phone | Unavailable | + + + Support + + +---------+ + | Name | Relationship | Address | Phone | + + +---------+ + | Ed [place] | ECON | Unknown | | + + +---------+ + Care Team Providers + +------+ + | Care Trust Mail Clerk Name | Role | Phone | + +------+ + | Rosalba Huerta | PCP | | + +------+ + Reason for Visit + + + | Reason | Comments | + + + | Results, Imaging | Shoulder XR | + + + Encounter Details +--------+ + + + + | Date | Type | Department | Care Team | Description | +--------+ + + + + | 02/09/ | Telephone | [facility] [place] | Nathen Dunn, | Results, Imaging | | 2018 | | PHYSIATRY [address] | PA-C [address] | (Shoulder XR) | | | | [place], | [address] [place] | | | | | [place] [address] | [place] [address] | | | | | [phone] | [phone] | | | | | | | [...]
--- OUTSIDE RECORDS SUMMARY | ~2019-06-08 | XMS | Encounter Summary ---
Demographics + + + | Address | [address] | | | [place] [address] | + + + | Home Phone | | + + + | Preferred Language | Unknown | + + + | Marital Status | Single | + + + | Islam Affiliation | 1009 | + + + | Race | Unknown | + + + | Ethnic Group | Unknown | + + + Author + + + | Author | [facility] | | | and [place] | + + + | Organization | [facility] | | | and [place] | + + + | Address | Unknown | + + + | Phone | Unavailable | + + + Support + + +---------+ + | Name | Relationship | Address | Phone | + + +---------+ + | Ed [place] | ECON | Unknown | | + + +---------+ + Care Team Providers + +------+ + | Care Humidifier Operator Name | Role | Phone | + +------+ + | Rosalba Huerta | PCP | | + +------+ + Reason for Visit + + + | Reason | Comments | + + + | Hand Pain | Right Hand ganglion cyst onset 1 month | + + + Evaluate & Treat (Routine) +--------+ + + + + + | Status | Reason | Specialty | Diagnoses / | Referred By | Referred To | | | | | Procedures | Contact | Contact | +--------+ + + + + + | Closed | Specialty | Orthopedic | Diagnoses | Kevin, | Peter, | | | Services | Surgery | Ganglion | Sanju Otoole MD | Jaciel Nesbitt MD | | | Required | | cyst of | [address] | | | | | finger of | [address] | [address] [place] | | | | | right hand | [place], | [place], [place] | | | | | Procedures | [place] [address] | [address] Phone: | | | | | 12/07 | Phone: | [phone] | | | | | Pending-MODA | [phone] | Fax: | | | | | IPA | Fax: | [phone] | | | | | response | [phone] | | +--------+ + + + + + Encounter Details +--------+---------+ + + + | Date | Type | Department | Care Team | Description | +--------+---------+ + + + | 12/30/ | Office | [facility] | Sanju Brown, | Ganglion cyst of | | 2018 | Visit | ORTHOPEDIC SURGERY | [address] | dorsum of right | | | | [address] [facility] | [place] [facility] [place] | wrist (Primary Dx); | | | | [place], [place] | [address] | Right wrist pain | | | | [address] | | | | | | [phone] | Jeremy Goodwin | | | | | | [address] | | | | | | [address] [place] | | | | | | [place] [address] | | | | | | [phone] | | | | | | | [...] + + + | Blood Pressure | - | - | | + + + + + | Pulse | - | - | | + [...] Weight | 86.6 kg (191 lb) | 12/30/2017 8:58 AM | | | | | PDT | | + + + + + | Height | 170.2 cm (5' 7") | 12/30/2017 8:58 AM | | | | | PDT | | + + + + + | Body Mass Index | 29.91 | 12/30/2017 8:58 AM | | | | | PDT | | + + + + + documented in this encounter Plan of Treatment + + +--------+ + + | Name | Type | Priori | Associated Diagnoses | Order Schedule | | | | ty | | | + + +--------+ + + | * [facility] | Outpatient | Routin | Ganglion cyst of | Ordered: 11/15/2017 | | Orthopedic Surgery - | Referral | e | finger of right hand | | | AMB Referral | | | | | + + +--------+ + + documented as of this encounter Visit Diagnoses + + | Diagnosis | + + | Ganglion cyst of dorsum of right wrist - Primary | + + | Right wrist pain Pain in joint, forearm | + + documented in this encounter
--- OUTSIDE RECORDS SUMMARY | ~2019-06-08 | XMS | Encounter Summary ---
Demographics + + + | Address | [address] | | | [place] [address] | + + + | Home Phone | | + + + | Preferred Language | Unknown | + + + | Marital Status | Single | + + + | Mormonism Affiliation | 1009 | + + + | Race | Unknown | + + + | Ethnic Group | Unknown | + + + Author + + + | Author | [facility] | | | and [place] | + + + | Organization | [facility] | | | and [place] [...] Team Providers + +------+ + | Care Cadworx Piping Designer Name | Role | Phone | + +------+ + | Jacqueline Lozano | PCP | | + +------+ + Reason for Visit Auth/Cert +--------+--------+ + + + + | Status | Reason | Specialty | Diagnoses / | Referred By | Referred To | | | | | Procedures | Contact | Contact | +--------+--------+ + + + + | | | | | | | +--------+--------+ + + + + Encounter Details +--------+ + + + + | Date | Type | Department | Care Team | Description | +--------+ + + + + | 12/22/ | Hospital | [facility] | Sanju Brown, | Left hip pain | | 2017 | Encounter | MED CTR XRAY [address] | MD [address] | | | | | [place] | [place], [place] | | | | | [place] [address] | [address] | | | | | [phone] | | | | | | | [address] | | +--------+ + + + + [...] + +---------+ + + | baclofen | 1 tablet with food | | 0 | | | | (LIORESAL) 20 mg | or milk orally 3 | | | | 8 | | tablet | times a day. | | | | | + + [...] + + + +---------+ + + | nortriptyline | 1 capsule by mouth | 90 | 1 | 11/16/19 | | | (PAMELOR) 10 MG | at bedtime for 7 | capsule | | 18 | 8 | | capsule | days; then 2 at | | | | | | | bedtime for 7 days; | | | | | | | then 3 at bedtime | | | | | | | for 7 days; then 4 | | | | | | | at bedtime | | | | | + + + +---------+ + + documented as of this encounter Plan of Treatment Not on filedocumented as of this encounter Procedures + +--------+ + + + | Procedure Name | Priori | Date/Time | Associated Diagnosis | Comments | | | ty | | | | + +--------+ + + + | FL HIP INJECTION | Routin | 12/22/2017 | Left hip pain | Results for this | | LEFT FOR MRI OR CT | e | 9:00 AM | | procedure are in the | | | | PDT | | results section. | + +--------+ + + + documented in this encounter Results FL Hip Injection Left for MRI or CT (12/22/2017 9:00 AM PDT) + + | Specimen | + + | | + + + + + | Narrative | Performed At | + + + | CLINICAL INFORMATION: left hip pain COMPARISON: None available. | [facility] | | PROCEDURE: Risks of the procedure include pain, infection, | | | bleeding, allergic reaction, and nondiagnostic. An informed written | | | consent was obtained. A final time out was performed. The | | | surface overlying the left hip joint was sterilely prepped and | | | draped. Under fluoroscopic guidance, the entry site was selected. | | | The area was locally infiltrated with 5 ml of 1% lidocaine. A | | | 22-gauge spinal needle was advanced perpendicular to the fluoroscopic | | | table and into the left hip joint, confirmed with contrast injection | | | under fluoroscopy. Subsequently, 13 ml of a mixture of 10 mL | | | Omnipaque, 5 mL normal saline, 5 mL 1% lidocaine, and 0.05 mL Gadavist | | | was injected into the joint. No immediate complication. | | | The patient was transferred to the MR suite for MR arthrogram | | | portion of the exam. IMPRESSION - Technically successful left | | | hip arthrogram. Refer to subsequent MR arthrogram for detailed | | | findings. Dictated and Signed by: Juanpablo Zhang MD | | | Electronically signed: 12/22/2017 5:23 PM | | + + + + + | Procedure Note | + + | Jonathan, Rad Results In - 12/22/2017 5:26 PM PDT CLINICAL INFORMATION: left hip pain | | | | COMPARISON: None available. | | | | PROCEDURE: Risks of the procedure include pain, infection, bleeding, allergic | | reaction, and nondiagnostic. An informed written consent was obtained. A final | | time out was performed. | | | | The surface overlying the left hip joint was sterilely prepped and draped. | | Under fluoroscopic guidance, the entry site was selected. The area was locally | | infiltrated with 5 ml of 1% lidocaine. A 22-gauge spinal needle was advanced | | perpendicular to the fluoroscopic table and into the left hip joint, confirmed | | with contrast injection under fluoroscopy. Subsequently, 13 ml of a mixture of | | 10 mL Omnipaque, 5 mL normal saline, 5 mL 1% lidocaine, and 0.05 mL Gadavist was | | injected into the joint. | | | | No immediate complication. | | | | The patient was transferred to the MR suite for MR arthrogram portion of the | | exam. | | | | IMPRESSION - Technically successful left hip arthrogram. Refer to subsequent MR | | arthrogram for detailed findings. | | | | Dictated and Signed by: Juanpablo Zhang MD | | Electronically signed: 12/22/2017 5:23 PM | + + + +---------+ + + | Performing | Address | City/State/Zipcode | Phone Number | | Organization | | | | + +---------+ + + | [facility] | | | | + +---------+ + + documented in this encounter Visit Diagnoses + + | Diagnosis | + + | Left hip pain Pain in joint, pelvic region and thigh | + + documented in this encounter Administered Medications + +--------+ + +------+------+ | Medication Order | MAR | Action | Dose | Rate | Site | | | Action | Date | | | | + +--------+ + +------+------+ | gadobutrol (GADAVIST) injection | Given | 12/23/19 | 0.05 mLs | | | | 0.05 mL 0.05 mL, | | 18 8:41 | | | | | Intra-articular, ONCE PRN, Other, | | AM PDT | | | | | Starting 12/22/17 at 0840, | | | | | | | For 1 dose, MRI | | | | | | + +--------+ + +------+------+ +---+---+ | | | +---+---+ + +-------+ +-------+---+---+ | iohexol (OMNIPAQUE 240) 240 | Given | 12/23/19 | 5 mLs | | | | mg/mL injection 5 mL 5 mL, | | 18 9:00 | | | | | Intra-articular, ONCE, Wed | | AM PDT | | | | | 12/22/17 at 0900, For 1 dose, | | | | | | | Radiology | | | | | | + +-------+ +-------+---+---+ +---+---+ | | | +---+---+ + +-------+ +-------+---+ + | lidocaine 1% injection 5 mL 5 | Given | 12/23/19 | 5 mLs | | Other | | mL, Intradermal, ONCE, Wed | | 18 9:00 | | | (Comment | | 12/22/17 at 0900, For 1 dose | | AM PDT | | | ) | + +-------+ +-------+---+ + +---+---+ | | | +---+---+ documented in this encounter"
--- OUTSIDE RECORDS SUMMARY | ~2019-06-08 | XMS | Encounter Summary ---
Demographics + + + | Address | [address] | | | [place] [address] | + + + | Home Phone | | + + + | Preferred Language | Unknown | + + + | Marital Status | Single | + + + | Yarsani Affiliation | 1009 | + + + | Race | Unknown | + + + | Ethnic Group | Unknown | + + + Author + + + | Author | [facility] | | | and [place] | + + + | Organization | [facility] | | | and [place] | + + + | Address | Unknown | + + + | Phone | Unavailable | + + + Support + + +---------+ + | Name | Relationship | Address | Phone | + + +---------+ + | [place] | ECON | Unknown | | + + +---------+ + Care Team Providers + +------+ + | Care Cylinder Worker Name | Role | Phone | + +------+ + | Rosalba Huerta | PCP | | + +------+ + Reason for Visit +--------+ + | Reason | Comments | +--------+ + | LABS | | +--------+ + Encounter Details +--------+ + + + + | Date | Type | Department | Care Team | Description | +--------+ + + + + | 03/22/ | Telephone | [facility] [place] | Sanju Brown, | LABS | | 2018 | | PHYSIATRY [address] | MD [address] | | | | | [place], | [place], [place] | | | | | [place] [address] | [address] | | | | | [phone] | | | +--------+ + + + [...]
--- OUTSIDE RECORDS SUMMARY | ~2019-06-08 | XMS | Clinical Summary ---
Demographics + + + | Address | [address] | | | [place] [address] | + + + | Home Phone | | + + + | Preferred Language | Unknown | + + + | Marital Status | Single | + + + | Episcopalian Affiliation | 1009 | + + + | Race | Unknown | + + + | Ethnic Group | Unknown | + + + Author + + + | Author | [facility] | | | and [place] | + + + | Organization | [facility] | | | and [place] | + + + | Address | Unknown | + + + | Phone | Unavailable | + + + Support + + +---------+ + | Name | Relationship | Address | Phone | + + +---------+ + | Ed [place] | ECON | Unknown | | + + +---------+ + Care Team Providers + +------+ + | Care Manager Image Name | Role | Phone | + +------+ + | Irene Cortes MD | PCP | | + +------+ + Allergies No Known Allergies Medications + + + +---------+------+------+-------+ | Medication | Sig | Dispensed | Refills | Star | End | Statu | | | | | | t | Date | s | | | | | | Date | | | + + + +---------+------+------+-------+ | DULoxetine | Take 60 mg by mouth | | 0 | | | Activ | | (CYMBALTA) [address] | Daily. | | | | | e | | capsule | | | | | | | + + + +---------+------+------+-------+ | ibuprofen | Take 800 mg by mouth | | 0 | | | Activ | | (ADVIL,MOTRIN) 800 | every 6 hours as | | | | | e | | MG tablet | needed for Pain. | | | | | | + + + +---------+------+------+-------+ | METFORMIN HCL PO | Take 2 tablets by | | 0 | | | Activ | | | mouth Daily. PATIENT | | | | | e | | | UNSURE OF MG DOSING | | | | | | | | | | | | | | + + + +---------+------+------+-------+ | gabapentin | Take 600 mg by mouth | | 0 | | | Activ | | (NEURONTIN) 600 MG | 3 times daily. | | | | | e | | tablet | | | | | | | + + + +---------+------+------+-------+ | gabapentin | Take 600 mg by mouth | | 1 | 04/1 | | Activ | | (NEURONTIN) 300 mg | Daily. | | | 320 | | e | | capsule | | | | 19 | | | + + + +---------+------+------+-------+ | traZODone | Take 300 tablets by | | 0 | /2 | | Activ | | (DESYREL) 150 MG | mouth Daily. | | | 11/17 | | e | | tablet | | | | 19 | | | + + + +---------+------+------+-------+ | TRULICITY 0.75 | Inject 0.5 mLs as | | 4 | 10/29 | | Activ | | MG/0.5ML injection | directed Daily. | | | 12/17 | | e | | | | | | 19 | | | + + + +---------+------+------+-------+ | baclofen | TAKE 1 TABLET BY | 270 | 0 | /2 | | Activ | | (LIORESAL) 20 mg | MOUTH THREE TIMES | tablet | | 12/17 | | e | | tablet | DAILY WITH FOOD OR | | | 19 | | | | | MILK | | | | | | + + + +---------+------+------+-------+ Active Problems + + + | Problem | Noted Date | + + + | Left shoulder tendonitis | 02/02/2019 | + + + | Yeast infection of the vagina | 04/25/2018 | + + + | Subacromial bursitis of left shoulder joint | 03/08/2018 | + + + | Labral tear of left hip joint | 12/28/2017 | + + + Encounters +--------+ + + + + | Date | Type | Specialty | Care Team | Description | +--------+ + + + + | 03/14/ | Telephone | Physical Medicine | Nathen Dunn, | Medication Question | | 2019 | | and Rehabilitation | PA-C | | +--------+ + + + + from Last 3 Months Family History + + + + + | Medical History | Relation | Name | Comments | + + + + + | Other (see comment) | Brother | | Twin | + + + + + | Stroke | Brother | | | + + + + + | No known problems | Father | ED | | | | | [employer] | | + + + + + + + +--------+ + | Relation | Name | Status | Comments | + + +--------+ + | Brother | | | Twin brother | + + +--------+ + | Father | ED | Alive | | | | [employer] | | | + + +--------+ + Social History + + + +--------+------+ [...] | + + Last Filed Vital Signs + + + + + | Vital Sign | Reading | Time Taken | Comments | + + + + + | Blood Pressure | 123/82 | 11/24/2018 1:04 PM | | | | | PDT | | + + + + + | Pulse | 76 | 11/24/2018 1:04 PM | | | | | PDT | | + + + + + | Temperature | 36.9 C (98.5 F) | 08/05/2017 7:03 PM | | | | | PST | | + + + + + | Respiratory Rate | 16 | 02/21/2018 2:19 PM | | | | | PDT | | + + + + + | Oxygen Saturation | 99% | 08/05/2017 9:29 PM | | | | | PST | | + + + + + | Inhaled Oxygen | - | - | | | Concentration | | | | + + + + + | Weight | 88 kg (194 lb) | 11/24/2018 1:04 PM | | | | | PDT | | + + + + + | Height | 170.2 cm (5' 7") | 11/24/2018 1:04 PM | | | | | PDT | | + + + + + | Body Mass Index | 30.38 | 11/24/2018 1:04 PM | | | | | PDT | | + + + + + Plan of Treatment + + + + + | Health Maintenance | Due Date | Last Done | Comments | + + + + + | Vaccine: | | | | | Pneumococcal 19-64 | 1 | | | | (1 of 1 - PPSV23) | | | | + + + + + | Vaccine: | | | | | Dtap/Tdap/Td (1 - | 6 | | | | Tdap) | | | | + + + + + | Cervical Cancer | | | | | Screening (Pap) | 5 | | | + + + + + | Vaccine: Influenza | | 02/27/2015 | | | (#1) | 9 | | | + + + + + Results Not on filefrom Last 3 Months Insurance +-------+--------+ +--------+-------+---------+------+ | Payer | Benefi | Subscriber | Effect | Phone | Address | Type | | | t Plan | ID | susana | | | | | | / | | Dates | | | | | | Group | | | | | | +-------+--------+ +--------+-------+---------+------+ | BCBS | BCBS | [id number] | 12/30/19 | | | PPO | | | OOS | W00 | 19-Pre | | | | | | PPO | | sent | | | | +-------+--------+ +--------+-------+---------+------+ + +--------+ +--------+ + + | Guarantor Name | Accoun | Relation to | Date | Phone | Billing Address | | | t Type | Patient | of | | | | | | | | | | + +--------+ +--------+ + + | Laine Villatoro | Person | Self [birth year] | [address] | | [place] | al/Fam | | 1976 | [phone] | [place] [address] | | | nolberto | | | 4 (Home) | | | | | | | [phone] | | | | | | | 4 (Work) | | + +--------+ +--------+ + + Advance Directives + + + + + | Type | Date Recorded | Patient | Explanation | | | | Salesperson Flowers | | + + + + + | Power of | | | | | Meat Market Manager | | | | + + + + + | Advance | 08/05/2017 7:22 | | | | Directive | PM | | | + + + + +
--- OUTSIDE RECORDS SUMMARY | ~2019-06-08 | XMS | Encounter Summary ---
Demographics + + + | Address | [address] | | | [place] [address] | + + + | Home Phone | | + + + | Preferred Language | Unknown | + + + | Marital Status | Single | + + + | Mosque Affiliation | 1009 | + + + | Race | Unknown | + + + | Ethnic Group | Unknown | + + + Author + + + | Author | [facility] | | | and [place] | + + + | Organization | [facility] | | | and [place] | + + + | Address | Unknown | + + + | Phone | Unavailable | + + + Support + + +---------+ + | Name | Relationship | Address | Phone | + + +---------+ + | [place] | ECON | Unknown | | + + +---------+ + Care Team Providers + +------+ + | Care Bell Valet Name | Role | Phone | + +------+ + | Rosalba Huerta | PCP | | + +------+ + Reason for Visit + + + | Reason | Comments | + + + | Hip Pain | Left | + + + Evaluate & Treat [...] | | left | [address] | [address] [address] | | | | | acetabular | [address] | [address] | | | | | labrum, | [address] | [address] | | | | | initial | [place], | [place] | | | | | encounter | [place] [address] | [place], [place] | | | | | Tear of left | Phone: | [address] Phone: | | | | | acetabular | [phone] | [phone] | | | | | labrum | Fax: | Fax: | | | | | Procedures | [phone] | [phone] | | | | | HIM 01/10/18 | | | +--------+ + + + + + Encounter Details +--------+---------+ + + + | Date | Type | Department | Care Team | Description | +--------+---------+ + + + | 02/21/ | Office | [facility] | Raul Monaco, | Left hip pain | | 2018 | Visit | SURGICAL | [place] [address] | (Primary Dx); Tear | | | | SPECIALITIES | [address] | of left acetabular | | | | ORTHOPEDICS MACHINIST MATE | [place], [place] | labrum, initial | | | | [address] | [address] | encounter | | | | [address] [place] | | | | | | [place], [place] | | | | | | [address] | | | | | | [phone] | | | +--------+---------+ + + + [...] + + + | Blood Pressure | 126/87 | 02/21/2018 2:19 PM | | | | | PDT | | + + + + + | Pulse | 66 | 02/21/2018 2:19 PM | | | [...] + + + + | Weight | 88.3 kg (194 lb 9.6 | 02/21/2018 2:19 PM | | | | oz) | PDT | | + + + + + | Height | 170.2 cm (5' 7") | 02/21/2018 2:19 PM | | | | | PDT | | + + + + + | Body Mass Index | 30.48 | 02/21/2018 2:19 PM | | | | | PDT | | + + + + + documented in this encounter Progress Notes Marisel Sprague CMA - 02/21/2018 2:30 PM PDTFormatting of this note might be differen t from the original. [facility] Pre-Surgical Screening Reviewed Date: 02/21/2018 BMI: Estimated body mass index is 30.48 kg/m as calculated fro m the following: Height as of this encounter: 1.702 m (5' 7"). Weight as of this encounter: 88.3 kg (194 lb 9.6 oz). Medical History Yes No Heart/Cardiovascular (incl. Hypertension) [x] [] Dx:HTN EKG: Stents: Date Placed: Data Management Associate: Anti-Coag: Lung/Respiratory: [] [x] Dx: Treatment: Kidney/Liver: [] [x] Dx: Treatment: Sleep Apnea: [] [x] CPAP: [] Yes [] No Setting: Home O2: [] Yes [] No Diabetes: [] [x] A1C Date: Result: MRSA/CDIFF/VRE: [] [x] Date: Resolved: [] Yes [] No Blood Clots (PHX): [] [x] Date: Location/Reason: Blood Clots (FHX): [] [x] Date: Location/Reason: Bleeding Disorders: [] [x] [] PHX [] FHX Type: Anesthesia Problems: [] [x] Type: Chronic Pain Meds: [] [x] Med/Dose/Frequency: Pain Contract: [] [x] Provider: History of Drug Use: [] [x] Other Pertinent: [] [x] ASC Notes: Surgeon: Planned Procedure: Prepared by: MARISEL SPRAGUE CMA 02/21/2018 14:22 documented in th is encounter Plan of Treatment Not on filedocumented [...] | | Indications: Left hip pain | [place] - | | | [facility] [...] + + + + + | BARBARA OLIVEIRAROCIO RICKNE | [facility], [address] | [place] [address] | [phone] | | - IMAGING - [facility] | Raman | | | + + + + + documented in this encounter Visit Diagnoses + + | Diagnosis | + + | Left hip pain - Primary Pain in joint, pelvic region and thigh | + + | Tear of left acetabular labrum, initial encounter | + + documented in this encounter Administered Medications + +--------+ +------+------+------+ | Medication Order | MAR | Action | Dose | Rate | Site | | | Action | Date | | | | + +--------+ +------+------+------+ | lidocaine 2% injection 1 mL 1 | Given | 02/22/20 | 1 mL | | | | mL, Other, ONCE, 02/21/18 at | | 18 4:09 | | | | | 1615, For 1 dose | | PM PDT | | | | + +--------+ +------+------+------+ +---+---+ | | | +---+---+ + +-------+ +-------+---+---+ | methylPREDNISolone acetate | Given | 02/22/20 | 80 mg | | | | (DEPO-MEDROL) 80 mg/mL injection | | 18 4:38 | | | | | 80 mg 80 mg, Intra-articular, | | PM PDT | | | | | ONCE, Wed02/21/18 at 1700, For 1 | | | | | | | dose, Not for IV use., | | | | | | + +-------+ +-------+---+---+ +---+---+ | | | +---+---+ + +-------+ +-------+---+---+ | ropivacaine (NAROPIN) 5 mg/mL | Given | 02/22/20 | 5 mLs | | | | (0.5%) injection 5 mL 5 mL, | | 18 4:38 | | | | | Infiltration, ONCE, Wed02/21/18 | | PM PDT | | | | | at 1700, For 1 dose | | | | | | + +-------+ +-------+---+---+ +---+---+ | | | +---+---+ documented in this encounter
--- OUTSIDE RECORDS SUMMARY | ~2019-06-08 | XMS | Encounter Summary ---
Demographics + + + | Address | [address] | | | [place] [address] | + + + | Home Phone | | + + + | Preferred Language | Unknown | + + + | Marital Status | Single | + + + | Anabaptism Affiliation | 1009 | + + + | Race | Unknown | + + + | Ethnic Group | Unknown | + + + Author + + + | Author | [facility] | | | and [place] | + + + | Organization | [facility] | | | and [place] | + + + | Address | Unknown | + + + | Phone | Unavailable | + + + Support + + +---------+ + | Name | Relationship | Address | Phone | + + +---------+ + | Ed [place] | ECON | Unknown | | + + +---------+ + Care Team Providers + +------+ + | Care Industrial Engineering Technologist Name | Role | Phone | + +------+ + | Rosalba Huerta | PCP | | + +------+ + Encounter Details +--------+ + + + + | Date | Type | Department | Care Team | Description | +--------+ + + + + | 01/14/ | Orders Only | [facility] | Jeremy Goodwin | Ganglion cyst of | | 2018 | | ORTHOPEDIC SURGERY | [address] | dorsum of right | | | | [address] [facility] | [address] | wrist (Primary Dx); | | | | [address] | [place] [address] | Right wrist pain | | | | [address] | [phone] | | | | | [phone] | | | +--------+ + + + [...] forearm | + + documented in this encounter"
--- OUTSIDE RECORDS SUMMARY | ~2019-06-08 | XMS | Encounter Summary ---
Demographics + + + | Address | [address] | | | [place] [address] | + + + | Home Phone | | + + + | Preferred Language | Unknown | + + + | Marital Status | Single | + + + | Protestant Affiliation | 1009 | + + + | Race | Unknown | + + + | Ethnic Group | Unknown | + + + Author + + + | Author | [facility] [place] | | | and [place] | + + + | Organization | [facility] [place] | | | and [place] | + + + | Address | Unknown | + + + | Phone | Unavailable | + + + Support + + +---------+ + | Name | Relationship | Address | Phone | + + +---------+ + | Ed Copan | ECON | Unknown | | + + +---------+ + Care Team Providers + +------+ + | Care Fire Official Name | Role | Phone | + +------+ + | Rosalba Huerta | PCP | | + +------+ + Reason for Visit + + + | Reason | Comments | + + + | Medication Question | | + + + Encounter Details +--------+ + + + + | Date | Type | Department | Care Team | Description | +--------+ + + + + | 02/10/ | Telephone | [facility] [place] | Nathen Dunn, | Medication Question | | 2018 | | PHYSIATRY [address] | PA-C [address] | | | | | [place], | [address] [place] | | | | | [place] [address] | [place] [address] | | | | | [phone] | [phone] | | | | | | | [...]
--- OUTSIDE RECORDS SUMMARY | ~2019-06-08 | XMS | Encounter Summary ---
Demographics + + + | Address | [address] | | | [place] [address] | + + + | Home Phone | | + + + | Preferred Language | Unknown | + + + | Marital Status | Single | + + + | Adventism Affiliation | 1009 | + + + | Race | Unknown | + + + | Ethnic Group | Unknown | + + + Author + + + | Author | [facility] [place] | | | and [place] | + + + | Organization | [facility] [place] | | | and [place] | + + + | Address | Unknown | + + + | Phone | Unavailable | + + + Support + + +---------+ + | Name | Relationship | Address | Phone | + + +---------+ + | Ed Bagley | ECON | Unknown | | + + +---------+ + Care Team Providers + +------+ + | Care Executive Community Planning Name | Role | Phone | + +------+ + | Rosalba Huerta | PCP | | + +------+ + Encounter Details +--------+ + + + + | Date | Type | Department | Care Team | Description | +--------+ + + + + | 02/09/ | Hospital | [facility] | Nathen Dunn, | Shoulder pain, | | 2018 | Encounter | MED CTR XRAY [address] | PA-C [address] | unspecified | | | | [place] | [address] [place] | chronicity, | | | | [place] [address] | [place] [address] | unspecified | | | | [phone] | [phone] | laterality | | | | | [...] baclofen | 1 tablet with food | 60 | 0 | 02/10/20 | | | (LIORESAL) 20 mg | or milk orally 3 | tablet | | 18 | 8 | | tablet | times a day. | | | | | + + + +---------+ + + | CHANTIX STARTING | Take by mouth 2 | | 0 | 01/18/20 | | | MONTH CANDIS 0.5 MG X | times daily. | | | 18 | 9 | | 11 & 1 MG X 42 | | | | | | | tablet | | | | | | + + + +---------+ + + | meloxicam (MOBIC) | Take 1 tablet by | 30 | 0 | 02/10/20 | | | 15 mg tablet | mouth Daily as | tablet | | 18 | 9 | | | needed for Pain. | | | | | + + + +---------+ + + | metoprolol | Take 50 mg by mouth | | 0 | | | | succinate | Daily. | | | | 9 | | (TOPROL-XL) 50 mg 24 | | | | | | | hr tablet | | | | | | + + + +---------+ + + documented as of this encounter Plan of Treatment Not on filedocumented as of this encounter Procedures + +--------+ + + + | Procedure Name | Priori | Date/Time | Associated Diagnosis | Comments | | | ty | | | | + +--------+ + + + | XR SHOULDER RIGHT 2 | Routin | 02/09/2018 | Shoulder pain, | Results for this | | + VW | e | 9:58 AM | unspecified | procedure are in the | | | | PDT | chronicity, | results section. | | | | | unspecified | | | | | | laterality | | + +--------+ + + + documented in this encounter Results XR Shoulder Right 2 + Vw (02/09/2018 9:58 AM PDT) + + | Specimen | + + | | + + + + + | Narrative | Performed At | + + + | THREE VIEWS RIGHT SHOULDER 02/09/2018 9:57 AM CLINICAL HISTORY: | [facility] | | shoulder pain COMPARISON: None available FINDINGS: The bones | | | are well-mineralized and well aligned. No fracture or subluxation | | | is evident. The glenohumeral joint is maintained. The | | | acromioclavicular joint is narrowed and demonstrates early marginal | | | osteophyte formation. Imaged chest and soft tissues are | | | unremarkable. IMPRESSION - 1. ACROMIOCLAVICULAR JOINT | | | ARTHROSIS. Dictated and Signed by: Willis Treviño MD | | | Electronically signed: 02/09/2018 12:23 PM | | + + + + + | Procedure Note | + + | Jonathan, Rad Results In - 02/09/2018 12:26 PM PDT THREE VIEWS RIGHT SHOULDER 02/09/2018 | | 9:57 AMCLINICAL HISTORY: shoulder painCOMPARISON: None availableFINDINGS: The bones are | | well-mineralized and well aligned. No fracture orsubluxation is evident. The | | glenohumeral joint is maintained. Theacromioclavicular joint is narrowed and | | demonstrates early marginal osteophyteformation. Imaged chest and soft tissues are | | unremarkable.IMPRESSION -1. ACROMIOCLAVICULAR JOINT ARTHROSIS.Dictated and Signed by: | | Willis Treviño MD Electronically signed: 02/09/2018 12:23 PM | |subluxation is evident. The glenohumeral joint is maintained. The | |acromioclavicular joint is narrowed and demonstrates early marginal osteophyte | |formation. Imaged chest and soft tissues are unremarkable. | | | |IMPRESSION - | |1. ACROMIOCLAVICULAR JOINT ARTHROSIS. | | | |Dictated and Signed by: Willis Treviño MD | | Electronically signed: 02/09/2018 12:23 PM | + + + +---------+ + [...]
--- OUTSIDE RECORDS SUMMARY | ~2019-06-08 | XMS | Encounter Summary ---
Demographics + + + | Address | [address] | | | [place] [address] | + + + | Home Phone | | + + + | Preferred Language | Unknown | + + + | Marital Status | Single | + + + | Zoroastrian Affiliation | 1009 | + + + | Race | Unknown | + + + | Ethnic Group | Unknown | + + + Author + + + | Author | [facility] [place] | | | and [place] | + + + | Organization | [facility] [place] | | | and [place] | + + + | Address | Unknown | + + + | Phone | Unavailable | + + + Support + + +---------+ + | Name | Relationship | Address | Phone | + + +---------+ + | Ed [place] | ECON | Unknown | | + + +---------+ + Care Team Providers + +------+ + | Care Sales Operations Director Name | Role | Phone | + +------+ + PCP | Unavailable | + +------+ + Encounter Details +--------+ + + + + | Date | Type | Department | Care Team | Description | +--------+ + + + + | 11/28/ | Hospital | [facility] | Toño Zhang MD | | | 2000 - | Encounter | [facility] | [address] | | | | | [address] | [address] [place], [place] | | | 12/06/ | | [address] | [id number] | | | 2000 | | [place], [place] | | | | | | [address] | | | | | | [phone] | | | +--------+ + + + [...]
--- OUTSIDE RECORDS SUMMARY | ~2019-06-08 | XMS | Encounter Summary ---
Demographics + + + | Address | [address] | | | [place] [address] | + + + | Home Phone | | + + + | Preferred Language | Unknown | + + + | Marital Status | Single | + + + | Methodist Affiliation | 1009 | + + + | Race | Unknown | + + + | Ethnic Group | Unknown | + + + Author + + + | Author | [facility] [place] | | | and [place] | + + + | Organization | [facility] [place] | | | and [place] | + + + | Address | Unknown | + + + | Phone | Unavailable | + + + Support + + +---------+ + | Name | Relationship | Address | Phone | + + +---------+ + | Ed [place] | ECON | Unknown | | + + +---------+ + Care Team Providers + +------+ + | Care Machine Stemmer Name | Role | Phone | + [...] | 2019 | | SURGICAL | [place] [address] | | | | | SPECIALITIES | [place] [address] | | | | | ORTHOPEDICS PHYSIOTHERAPY ASSISTANT | [place], [place] | | | | | [address] [place] | [address] | | | | | [address] [place] | | | | | | [place], [place] | | | | | | [address] | | | | | | [phone] | | | +--------+ + + + [...]
--- OUTSIDE RECORDS SUMMARY | ~2019-06-08 | XMS | Encounter Summary ---
Demographics + + + | Address | [address] | | | [place] [address] | + + + | Home Phone [...] Author | [facility] [place] | | | and [place] | + + + | Organization | [facility] [place] | | | and [place] | + + + | Address | Unknown | + + + | Phone | Unavailable | + + + Support + + +---------+ + | Name | Relationship | Address | Phone | + + +---------+ + | Ed [place] | ECON | Unknown | | + + +---------+ + Care Team Providers + +------+ + | Care Pipe Insulator Name | Role | Phone | + +------+ + | Rosalba Huerta | PCP | | + +------+ + Encounter Details +--------+ + + + + | Date | Type | Department | Care Team | Description | +--------+ + + + + | 12/30/ | Hospital | [facility] | Jeremy Goodwin | Ganglion cyst of | | 2018 | Encounter | MED CTR PRINCE XRAY | [address] | finger of right hand | | | | [address] [place] | [address] | | | | | [place] | [place] [address] | | | | | [address] | [phone] | | | | | [phone] | | | +--------+ + + + [...] + +--------+ + + + | XR HAND RIGHT 3 + VW | Routin | 12/30/2017 | Ganglion cyst of | Results for this | | | e | 8:42 AM | finger of right hand | procedure are in the | | | | PDT | | results section. | + +--------+ + + + documented in this encounter Results XR Hand Right 3 [...] Procedure Note | + + | Jonathan, Saravanan Results In - 12/30/2017 9:15 AM PDT [...] Ganglion cyst of finger of right hand | + + documented in this encounter"
--- OUTSIDE RECORDS SUMMARY | ~2019-06-08 | XMS | Encounter Summary ---
Demographics + + + | Address | [address] | | | [place] [address] | + + + | Home Phone | | + + + | Preferred Language | Unknown | + + + | Marital Status | Single | + + + | Scientologist Affiliation | 1009 | + + + | Race | Unknown | + + + | Ethnic Group | Unknown | + + + Author + + + | Author | [facility] [place] | | | and [place] | + + + | Organization | [facility] [place] | | | and [place] | + + + | Address | Unknown | + + + | Phone | Unavailable | + + + Support + + +---------+ + | Name | Relationship | Address | Phone | + + +---------+ + | Ed [place] | ECON | Unknown | | + + +---------+ + Care Team Providers + +------+ + | Care Ski Lift Attendant Name | Role | Phone | + [...] PHYSIATRY [address] | MD [address] | | | | | [place], | [place], [place] | | | | | [place] [address] | [address] | | | | | [phone] | | | +--------+ + + + [...]
--- OUTSIDE RECORDS SUMMARY | ~2019-06-08 | XMS | Encounter Summary ---
Demographics + + + | Address | [address] | | | [place] [address] | + + + | Home Phone | | + + + | Preferred Language | Unknown | + + + | Marital Status | Single | + + + | Scientology Affiliation | 1009 | + + + | Race | Unknown | + + + | Ethnic Group | Unknown | + + + Author + + + | Author | [facility] [place] | | | and [place] | + + + | Organization | [facility] [place] | | | and [place] | + + + | Address | Unknown | + + + | Phone | Unavailable | + + + Support + + +---------+ + | Name | Relationship | Address | Phone | + + +---------+ + | Ed [place] | ECON | Unknown | | + + +---------+ + Care Team Providers + +------+ + | Care Food And Beverage Lead Name | Role | Phone | + [...] + + | 07/05/ | Telephone | [facility] | Sanju Brown, | Lab Results | | 2018 | | PH[address]SIATRY [address] | MD [address] | | | | | [place], | [place], [place] | | | | | [place] [address] | [address] | | | | | [phone] | | | +--------+ + + + [...]
--- OUTSIDE RECORDS SUMMARY | ~2019-06-08 | XMS | Encounter Summary ---
Demographics + + + | Address | [address] | | | [place] [address] | + + + | Home Phone | | + + + | Preferred Language | Unknown | + + + | Marital Status | Single | + + + | Buddhism Affiliation | 1009 | + + + | Race | Unknown | + + + | Ethnic Group | Unknown | + + + Author + + + | Author | [facility] [place] | | | and [place] | + + + | Organization | [facility] [place] | | | and [place] | + + + | Address | Unknown | + + + | Phone | Unavailable | + + + Support + + +---------+ + | Name | Relationship | Address | Phone | + + +---------+ + | Ed [place] | ECON | Unknown | | + + +---------+ + Care Team Providers + +------+ + | Care Hotel Guest Service Agent Name | Role | Phone | + +------+ + | Irene Cortes MD | PCP | | + +------+ + Reason for Visit +--------+ + | Reason | Comments | +--------+ + | Other | Excuse from work | +--------+ + Encounter Details +--------+ + + + + | Date | Type | Department | Care Team | Description | +--------+ + + + + | 08/01/ | Telephone | [facility] [place] | Nathen Dunn, | Other (Excuse from | | 2019 | | PHYSIATRY [address] | PA-C [address] | work) | | | | [place], | [address] [place] | | | | | [place] [address] | [place] [address] | | | | | [phone] | [phone] | | | | | | | [...]
--- OUTSIDE RECORDS SUMMARY | ~2019-06-08 | XMS | Encounter Summary ---
Demographics + + + | Address | [address] | | | [place] [address] | + + + | Home Phone | | + + + | Preferred Language | Unknown | + + + | Marital Status | Single | + + + | Religion Affiliation | 1009 | + + + | Race | Unknown | + + + | Ethnic Group | Unknown | + + + Author + + + | Author | [facility] [place] | | | and [place] | + + + | Organization | [facility] [place] | | | and [place] | + + + | Address | Unknown | + + + | Phone | Unavailable | + + + Support + + +---------+ + | Name | Relationship | Address | Phone | + + +---------+ + | Ed [place] | ECON | Unknown | | + + +---------+ + Care Team Providers + +------+ + | Care Merry Go Round Attendant Name | Role | Phone | + +------+ + | Rosalba Huerta | PCP | | + +------+ + Reason for Visit + + + | Reason | Comments | + + + | Medication Follow-up | | + + + Encounter Details +--------+ + + + + | Date | Type | Department | Care Team | Description | +--------+ + + + + | 03/17/ | Telephone | [facility] [place] | Nathen Dunn, | Medication Follow-up | | 2018 | | [address]SIATRY [address] | PA-C [address] | | | | | [place], | [address] [place] | | | | | [place] [address] | [place] [address] | | | | | [phone] | [phone] | | | | | | | [...] of this encounter Plan of Treatment + +------+--------+ + + | Name | Type | Priori | Associated Diagnoses | Order Schedule | | | | ty | | | + +------+--------+ + + | Creatinine | Lab | Routin | Routine lab draw | 1 Occurrences | | | | e | | starting 03/17/2018 | | | | | | until 03/17/2019 | + +------+--------+ + + documented as of this encounter Visit Diagnoses + + | Diagnosis | + + | Routine lab draw - Primary Laboratory examination ordered as part of a routine | | general medical examination | + + documented in this encounter"
--- OUTSIDE RECORDS SUMMARY | ~2019-06-08 | XMS | Encounter Summary ---
Demographics + + + | Address | [address] | | | [place] [address] | + + + | Home Phone | | + + + | Preferred Language | Unknown | + + + | Marital Status | Single | + + + | Church Affiliation | 1009 | + + + | Race | Unknown | + + + | Ethnic Group | Unknown | + + + Author + + + | Author | [facility] [place] | | | and [place] | + + + | Organization | [facility] [place] | | | and [place] | + + + | Address | Unknown | + + + | Phone | Unavailable | + + + Support + + +---------+ + | Name | Relationship | Address | Phone | + + +---------+ + | Ed [place] | ECON | Unknown | | + + +---------+ + Care Team Providers + +------+ + | Care Production Lead Name | Role | Phone | + +------+ + | Rosalba Huerta | PCP | | + +------+ + Reason for Visit + + + | Reason | Comments | + + + | Procedure | Left bursa injection | + + + Service/Procedure (Routine) +--------+--------+ + + + + | Status | Reason | Specialty | Diagnoses / | Referred By | Referred To | | | | | Procedures | Contact | Contact | +--------+--------+ + + + + | Closed | | Physical | Diagnoses | Shaun, | Shaun, | | | | Medicine and | Subacromial | ANNMARIE Sena-C | GIGI Sena | | | | Rehabilitatio | bursitis of | [address] | [address] | | | | n | left | [address] | [address] | | | | | shoulder | [address] | [place], | | | | | joint | [place], | [place] [address] | | | | | Procedures | [place] [address] | Phone: | | | | | [place] | Phone: | [phone] | | | | | ARTHROCENTES | [phone] | Fax: | | | | | [place] | Fax: | [phone] | | | | | ASPIR&/INJ | [phone] | | | | | | MAJOR | | | | | | | JT/BURSA W/O | | | | | | | [place] | | | | | | | TRIAMCINOLON | | | | | | | E ACET INJ | | | | | | | NOS, 10 MG | | | | | | | In office | | | | | | | procedure | | | | | | | Left | | | | | | | Subacromial | | | | | | | Bursa | | | | | | | Injection | | | +--------+--------+ + + + + Encounter Details +--------+ + + + + | Date | Type | Department | Care Team | Description | +--------+ + + + + | 03/08/ | Procedure | [facility] [place] | Nathen Dunn, | Subacromial bursitis | | 2017 | visit | PHYSIATRY [address] | PA-C [address] | of left shoulder | | | | [place], | [address] [place] | joint | | | | [place] [address] | [place] [address] | | | | | [phone] | [phone] | | | | | | | [...] + + + | Blood Pressure | 119/81 | 03/08/2018 9:50 AM | | | | | PDT | | + + + + + | Pulse | 81 | 03/08/2018 9:50 AM | | | | | PDT [...] Weight | 88 kg (194 lb) | 03/08/2018 9:50 AM | | | | | PDT | | + + + + + | Height | 170.2 cm (5' 7") | 03/08/2018 9:50 AM | | | | | PDT | | + + + + + | Body Mass Index | 30.38 | 03/08/2018 9:50 AM | | | | | PDT | | + + + + + documented in this encounter Patient Instructions Patient Instructions Nathen Dunn PA-C - 03/08/2018 10:00 AM PDT- Ice the area as needed 20 minutes per hour. Multiple times as needed over the next few days. - Watch for signs of infection (redness around injection site, swelling, fever) - No strenuous activity for 24-48 hours after the procedure. - Please call the office with questions or concerns. -------- Bursitis You have bursitis. This is an inflammation of the bursa. These are small, fluid-filled sacs that surround the larger joints of the body. The bursa help the muscles and tendons move sm oothly over the joints. Bursitis often happens in the shoulder. But it can also affect the elbows, hips, pelvis, kn ees, toes, and heels. Bursitis can be caused by injury, overuse of the joint, or infection o f the bursa. Symptoms include pain and tenderness over a joint. Symptoms get worse with move ment. Bursitis is treated with an anti-inflammatory medicine and by resting the joint. More sever e cases require injection of medicine directly into the bursa. Home care Rest the painful joint and protect it from movement. This will allow the inflammation to heal faster. Apply an ice pack over the injured area forno more than 15 to20 minutes. Do this klarissa ry3 to 6hoursfor the first24 to 48 hours. Keep using ice packs 3 to 4 times a day un til the pain and swelling improves. To make an ice pack, put ice cubes in a sealed plasticzip-lockbag. Wrap the bag in a clean, thintowel or cloth. Never put ice or an ice pack directly on the skin. As the ice melts, be careful to avoid getting any wrap or splint wet. You may kwlmbuaz-aka-fnmkbzb pain medicine to treat pain and inflammation, unless anot her medicine was prescribed.Anti-inflammatory pain medicines may be more effective. Talk w ith your provider beforeusing these medicines if you have chronic liver or kidney disease, o r ever had a stomach ulcer or GI (gastrointestinal) bleeding. As your symptoms improve, slowly begin to move the joint. Do not overuse the joint. This may cause the symptoms to flare up again. When to seek medical advice Call your healthcare provider right away if any of these occur: Redness over the painful area Increasing pain or swelling at the joint Fever of 100.4F (38C) or above lasting for 24 to 48 hours Date Last Reviewed: 04/20/201519999121-6534 [employer]. [address] [place] [address]. All righ ts reserved. This information is not intended as a substitute for professional medical care. Always follow your healthcare professional's instructions. documented in this encounter Progress Notes aNthen Dunn PA-C - 03/08/2018 10:00 AM PDTFormatting of this note might be different fro m the original. Encounter Diagnosis Name Primary? Subacromial bursitis of left shoulder joint HPI: Lainekortney Villatoro is a 42 y.o. female who is being seen today in followup for cont inued left shoulder pain and upper back/posterior shoulder pain. The patient has been seen f or these complaints in the past. Patient is interested in Subacromial bursa injection toda y and I did feel that was appropriate. Description of procedure: After the patient gave consent for the procedure the area for in jection on LEFTshoulder was located by palpation and marked. The area was then prepped with Betadine swabs and alcohol. A 25 gauge 1 1/2 inch needle was then inserted into the subacr omial space on the LEFT. Attempted aspiration showed no fluid in the needle hub. A combina tion of 1 mL of 40 mg/mL Kenalog and 2 mL each of 0.5% Bupivicaine and 1% Lidocaine was inje cted. The patient tolerated the procedures well and was instructed to ice the areas for 15-20 min utes several times over the next few days and to watch for any signs of infection. Baclofen 20mg was refilled today. Patient will follow-up with as needed. ELECTRONICALLY SIGNED BY: Nathen Dunn PA-C, 03/08/18 documented in this en counter Plan of Treatment Not on filedocumented as of this encounter Visit Diagnoses + + | Diagnosis | + + | Subacromial bursitis of left shoulder joint | + + documented in this encounter Administered Medications + +--------+ +-------+------+-------+ | Medication Order | MAR | Action | Dose | Rate | Site | | | Action | Date | | | | + +--------+ +-------+------+-------+ | lidocaine 1% injection 2 mL 2 | Given | 03/08/20 | 2 mLs | | Joint | | mL, Intramuscular, ONCE, Tue | | 18 10:08 | | | | | 03/08/18 at 1015, For 1 dose | | AM PDT | | | | + +--------+ +-------+------+-------+ +---+---+ | | | +---+---+ + +-------+ +-------+---+-------+ | ropivacaine (NAROPIN) 5 mg/mL | Given | 03/08/20 | 2 mLs | | Joint | | (0.5%) injection 2 mL 2 mL, | | 18 10:10 | | | | | Other, ONCE, 03/08/18 at 1015, | | AM PDT | | | | | For 1 dose | | | | | | + +-------+ +-------+---+-------+ +---+---+ | | | +---+---+ + +-------+ +-------+---+-------+ | triamcinolone acetonide | Given | 03/08/20 | 40 mg | | Joint | | (KENALOG-40) 40 mg/mL injection | | 18 10:09 | | | | | 40 mg 40 mg, Intramuscular, | | AM PDT | | | | | ONCE, Clarice 03/08/18 at 1015, For 1 | | | | | | | dose, Naeem well. Not for IV | | | | | | | use., | | | | | | + +-------+ +-------+---+-------+ +---+---+ | | | +---+---+ documented in this encounter
--- OUTSIDE RECORDS SUMMARY | ~2019-06-08 | XMS | Encounter Summary ---
Demographics + + + | Address | [address] | | | [place] [address] | + + + | Home Phone [...] + | Author | [facility] | | | and [place] | + + + | Organization | [facility] | | | and [place] | + + + | Address | Unknown | + + + | Phone | Unavailable | + + + Support + + +---------+ + | Name | Relationship | Address | Phone | + + +---------+ + | Ed [place] | ECON | Unknown | | + + +---------+ + Care Team Providers + +------+ + | Care Peanut Vendor Name | Role | Phone | + +------+ + PCP | Unavailable | + +------+ + Reason for Visit +--------+ + | Reason | Comments | +--------+ + | Other | Yeast Infection/Mouth Issues | +--------+ + Encounter Details +--------+ + + + + | Date | Type | Department | Care Team | Description | +--------+ + + + + | 05/26/ | Telephone | [facility] [place] | Nathen Dunn, | Other (Yeast | | 2018 | | PHYSIATRY [address] | PA-C [address] | Infection/Mouth | | | | [place], | [address] [place] | Issues) | | | | [place] [address] | [place] [address] | | | | | [phone] | [phone] | | | | | | | [...]
--- OUTSIDE RECORDS SUMMARY | ~2019-06-08 | XMS | Encounter Summary ---
Demographics + + + | Address | [address] | | | [place] [address] | + + + | Home Phone | | + + + | Preferred Language | Unknown | + + + | Marital Status | Single | + + + | Yazidism Affiliation | 1009 | + + + | Race | Unknown | + + + | Ethnic Group | Unknown | + + + Author + + + | Author | [facility] | | | and [place] | + + + | Organization | [facility] | | | and [place] | + + + | Address | Unknown | + + + | Phone | Unavailable | + + + Support + + +---------+ + | Name | Relationship | Address | Phone | + + +---------+ + | Ed [place] | ECON | Unknown | | + + +---------+ + Care Team Providers + +------+ + | Care Hvac Project Engineer Name | Role | Phone | + +------+ + | Irene Cortes MD | PCP | | + +------+ + Reason for Visit +--------+ + | Reason | Comments | +--------+ + | Other | | +--------+ + Encounter Details +--------+ + + + + | Date | Type | Department | Care Team | Description | +--------+ + + + + | 07/29/ | Telephone | [facility] [place] | Nathen Dunn, | Other | | 2019 | | [address]SIATRY [address] | PA-C [address] | | | | | [place], | [address] [place] | | | | | [place] [address] | [place] [address] | | | | | [phone] | [phone] | | | | | | | [...]
--- OUTSIDE RECORDS SUMMARY | ~2019-06-08 | XMS | Encounter Summary ---
Demographics + + + | Address | [address] | | | [place] [address] | + + + | Home Phone | | + + + | Preferred Language | Unknown | + + + | Marital Status | Single | + + + | Mosque Affiliation | 1009 | + + + | Race | Unknown | + + + | Ethnic Group | Unknown | + + + Author + + + | Author | [facility] | | | and [place] | + + + | Organization | [facility] | | | and [place] | + + + | Address | Unknown | + + + | Phone | Unavailable | + + + Support + + +---------+ + | Name | Relationship | Address | Phone | + + +---------+ + | Ed [place] | ECON | Unknown | | + + +---------+ + Care Team Providers + +------+ + | Care Agriculture Research Director Name | Role | Phone | [...] right hand | | | | [address] | [place] | (Primary Dx) | | | | [place] | [place] [address] | | | | | [address] | [phone] | | | | | [phone] | | | +--------+ + + + [...]
--- OUTSIDE RECORDS SUMMARY | ~2019-06-08 | XMS | Encounter Summary ---
Demographics + + + | Address | [address] | | | [place] [address] | + + + | Home Phone | | + + + | Preferred Language | Unknown | + + + | Marital Status | Single | + + + | Nondenominational Affiliation | 1009 | + + + | Race | Unknown | + + + | Ethnic Group | Unknown | + + + Author + + + | Author | [facility] | | | and [place] | + + + | Organization | [facility] | | | and [place] | + + + | Address | Unknown | + + + | Phone | Unavailable | + + + Support + + +---------+ + | Name | Relationship | Address | Phone | + + +---------+ + | Ed [place] | ECON | Unknown | | + + +---------+ + Care Team Providers + +------+ + | Care Wireless Sales Associate Name | Role | Phone | + +------+ + | Rosalba Huerta | PCP | | + +------+ + Reason for Visit + + + | Reason | Comments | + + + | Follow-up | Hip Pain | + + + Encounter Details +--------+---------+ + + + | Date | Type | Department | Care Team | Description | +--------+---------+ + + + | 02/09/ | Office | [facility] | Shaun, Nathen, | Shoulder pain, | | 2018 | Visit | PHYSIATRY [address] | PA-C [address] | unspecified | | | | [place], | [address] [place] | chronicity, | | | | [place] [address] | [place] [address] | unspecified | | | | [phone] | [phone] | laterality (Primary | | | | | | Dx) | +--------+---------+ + + + Social History [...] + + + | Blood Pressure | 123/66 | 02/09/2018 8:33 AM | | | | | PDT | | + + + + + | Pulse | 90 | 02/09/2018 8:33 AM | | | | | PDT [...] Weight | 86.6 kg (191 lb) | 02/09/2018 8:33 AM | | | | | PDT | | + + + + + | Height | 170.2 cm (5' 7") | 02/09/2018 8:33 AM | | | | | PDT | | + + + + + | Body Mass Index | 29.91 | 02/09/2018 8:33 AM | | | | | PDT | | + + + + + documented in this encounter Patient Instructions Patient Instructions Nathen Dunn PA-C - 02/09/2018 8:40 AM PDTShoulder xrays ordered. Baclofen refilled. Meloxicam started today. Discontinue ibuprofen at this time. Frozen Shoulder (Adhesive Capsulitis) Frozen shoulder is when pain and stiffness make it difficult to move your shoulder normally . This condition is also called adhesive capsulitis. The shoulder is a mqir-slf-wrjfjt joint. The ball on the upper arm bone fits into a socket on the shoulder blade. The joint is covered by strong connective tissue called the shoulder capsule. If the shoulder capsule becomes inflamed and swollen, movement is painful. Bands of scar ti ssue form on the joint s surface. This limits your shoulder's range of motion. In most cases, only one shoulder at a time is affected. Some people may get frozen shoulder in the other shoulder, at a later time. Frozen shoulder develops slowly in 3 stages. Each stage can last a few months or longer: 1. Painful stage. Pain occurs when raising your arm up or to the side, or when reaching beh ind your back. Your range of motion decreases. The pain may be worse at night and keep you f rom sleeping. 2. Frozen stage. Shoulder may be less painful, but it is stiffer. Range of motion is very l imited. 3. Thawing stage. Range of motion starts to improve with treatment. Experts don t know what causes frozen shoulder. It may occur after an injury such as a fr acture. Or it may happen if the shoulder is immobile for a long time, such as after surgery. It may also be an autoimmune response. Risk factors include being over age 40, or having di abetes, heart disease, lung disease, or an overactive thyroid. The diagnosis is made by physical exam and an X-ray of the shoulder joint. Sometimes an MRI is done to look for other causes. Mild cases may be treated with a home exercise program and anti-inflammatory medicines. Mor e severe cases require physical therapy. In some cases a steroid is shot, or injected, into the shoulder area. In hard to treat cases, forced movement of the shoulder is done while you are asleep under general anesthesia. This will break up scar tissue and increase your range of motion. In rare cases, surgery may be needed to remove the scar tissue. Over time, most people with frozen shoulder get back nearly all range of motion without pain. Recovery may t christopher a few months up to 1 year. You may still feel some stiffness. Home care If physical therapy was prescribed, keep up with any home exercise program you were give n. Keep using the affected shoulder and arm as much as possible. You may use lknc-cbj-ydflduk pain medicine to control pain, unless another pain medicine was prescribed. Anti-inflammatory pain medicines may work better than acetaminophen. If you have chronic liver or kidney disease or ever had a stomach ulcer or GI bleeding, talk with your healthcare provider before using these medicines. Follow-up care Follow up with your healthcare provider, or as advised. Or follow up sooner if pain increas es or your shoulder motion decreases. If X-rays or an MRI were done, you will be told of any new findings that may affect your ca re. When to seek medical advice Call your healthcare provider right away if any of these occur: Your shoulder is red or swollen Your arm feels weak or numb Your shoulder movement decreases Your shoulder pain increases even after using pain medicines Date Last Reviewed: 04/23/201519993891-5599 [employer]. [address] [place] [address], [place] [address]. All righ ts reserved. This information is not intended as a substitute for professional medical care. Always follow your healthcare professional's instructions. documented in this encounter Progress Notes Nathen Dunn PA-C - 02/09/2018 8:40 AM PDTFormatting of this note might be different fro m the original. Nathen Dunn PA-C, 02/09/18 [address] [facility] [address] [place] [address] FAX: PHYSICAL MEDICINE AND REHABILITATION H&P CHIEF COMPLAINT: Chief Complaint Patient presents with Follow-up Hip Pain HISTORY OF PRESENT ILLNESS: Laine Villatoro s a 42 y.o. female being seen today for follow up on Hip pain which she will be seeing a specialist in [place] next week for a surgi juno consult for torn labrum. Today she reports with diffuse joint pains. 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 She also has bilateral shoulder joint pain and bilateral kn ee pain. We have previously order routine rheumatology screening labs which have returned wi normal results. Patient reports that she is currently taking Cymbalta, baclofen, and hi gh doses of ibuprofen every day to help with pain. Patient states about 2-3 years ago she s tarted noticing pains throughout her body starting with her right hand. She reports living i [facility] where she had diffuse rashes on her upper extremities approximately 6-7 years ago, bu t denies having target shaped lesions or rashes to the palms/feet. She reports her left shou lder is worse than her right shoulder and is unable to Abduct or flex her shoulder without pain radiating from the posterior shoulder down posterior arm. She denies any numbness of the upper extremities bilaterally. She is walking with a limp and notes that the pain is wor se in the morning but is also present throughout the whole day despite NSAID use and muscle relaxant use. She does report that she had the most relief when she was on short doses of or al corticosteroids. Laine Villatoro rates the pain as moderate to severe. The symptoms are continuous. S he describes the pain as aching and dull. Laine Villatoro does not report any change [...] cessation education Other chronic pain Otitis externa Periodontal disease Radiculopathy, lumbar region Right wrist pain Strain of left inguinal muscle, subsequent encounter Stress PAST SURGICAL HISTORY: Past Surgical History: Procedure Laterality Date TOTAL HYSTERECTOMY 2005 CURRENT MEDICATIONS: Current Outpatient Prescriptions Medication Sig Dispense Refill baclofen (LIORESAL) 20 mg tablet 1 tablet with food or milk orally 3 times a day. CHANTIX STARTING MONTH CANDIS 0.5 MG X 11 & 1 MG X 42 tablet Take by mouth 2 times daily. DULoxetine (CYMBALTA) [address] capsule Take 20 mg by mouth Daily. ibuprofen (ADVIL,MOTRIN) 600 MG tablet Take 1 tablet by mouth every 6 hours as needed f or Pain. 30 tablet 0 metoprolol succinate (TOPROL-XL) 50 mg 24 hr tablet Take 50 mg by mouth Daily. No current facility-administered medications for this visit. [...] has ins omnia. PHYSICAL EXAMINATION: Blood pressure 123/66, pulse 90, height 1.702 m (5' 7"), weight 86.6 kg (191 lb), not curre ntly . Body mass index is 29.91 kg/m. [...] has no apparent deficits with short or fci memory. She has appropriate fund of knowledge Cranial nerves appear grossly intact. Sensory exam: intact sensation to light touch in the lower extremities. REFLEXES: (2 OR 2+ IS NORMAL) REFLEX: RIGHT LEFT BICEPS 2+ 2+ BRACHIORADIALIS 2+ 2+ TRICEPS 2+ 2+ PATELLAR 2+ 2+ ACHILLES 2+ 2+ MUSCULOSKELETAL There is no major palpable deformity of the spine. Range of motion testing of the cervical spine was unremarkable. Spurling sign was negative. LEFT Shoulder examination shows decreased range of motion abduction/flexion and normal ROM with external rotation, internal rotation. Impingement testing was Positive. There was no tenderness over the bicipital groove or ove r the AC joint. Speed's test was Negative. Empty can test was Negative. Strength testing, including strength testing of the infraspinatus, supraspinatus and subscapularis, in bilate ral upper extremities showed 5/5 strength with no focal weakness. RIGHT shoulder tests WNL Knee joints: bilaterally non tender to palpation. ROM equal and normal bilaterally. Knee fl ex/ext strength 4+/5, giveway weakness secondary to pain. RADIOGRAPHIC REVIEW: LEFT HIP MRI 12/22/17: Left hip labral tear. IMPRESSION: 1. Shoulder pain, unspecified chronicity, unspecified laterality PLAN: 1) Today we discussed the patient's differential diagnosis with the likely primary issue be ing shoulder bursitis vs adhesive capsulitis vs rheumatological disease. Patient's descripti on of symptoms, physical exam, and imaging suggest this diagnosis at this time. 2) I counseled patient on treatment options which included conservative self management usi ng OTC NSAIDs/Ice and heat packs, physical therapy, prescription medications, epidural stero id injection, as well as possible surgical intervention. 3) Imaging: As above 4) The patient has had significant conservative care including medications (NSAIDS and narc otics), PT (multiple sessions over the years) and care partner. Unfortunately Laine Villatoro continues to have significant discomfort. It appears to me that the pain is pr imarily coming from possible rheumatological pathology. The patient did report that the during the 2 occasions she has been on short bursts of c orticosteroids have been the times where she denies any joint pain. She also has history of abnormal skin and recent facial rashes which may suggest other rheumatological pathology. Since fibromyalgia is generally a dx of exclusion I would like to see what xrays of enrique larios show, possible shoulder bursa injections and/or intrarticular shoulder injections yeil d, and lastly a rheumatological consult before settling on fibromyalgia. She is presenting w ith more diffuse joint pains rather than diffuse myofascial pains at this time. In regard to left labral tear she is seeing hip specialist in [place] on 02/14/18. In regard to right wrist she is seeing an orthopedist in [place], her wrist surgery request was recently denied by her insurance. I recommended that she follow-up with this wit h her orthopedist to discuss options. I started patient on MELOXICAM 15MG and instructed her to d/c other NSAIDs while on this new medication. She admitted to occasionally take 6-8 200mg ibuprofen at a time and had bee n experiencing GERD like symptoms until she began taking metoprolol for HTN. This seemed rat her unusual and I informed her of risks of GI bleeds/ulcers with chronic use of ibuprofen. I also refilled a 1 month supply of baclofen. Bilateral shoulder xrays ordered to assess her shoulder pains, L>R. We discussed possibl e dx being shoulder bursitis, shoulder arthritic changes, and shoulder adhesive capsulitis, as well as possible rheum pathology. 5) Patient will follow up with me regarding shoulder pain for possible in office injection 6) If current treatment plan is insufficient for symptom relief we could try shoulder injec tions, exploring rheum referral, and/or fibromyalgia as the next option. Nathen Dunn PA-C - 02/09/2018 documented in this en counter Plan of Treatment Not on filedocumented as of this encounter Results XR Shoulder Right 2 [...] | | | + +---------+ + + XR Shoulder Left 2 + Omer (02/09/2018 9:57 AM PDT) + + | Specimen | + + | | + + + + + | Narrative | Performed At | + + + | THREE VIEWS LEFT SHOULDER 02/09/2018 9:57 AM CLINICAL HISTORY: | [facility] | | shoulder pain COMPARISON: RIGHT SHOULDER RADIOGRAPHS FROM THE SAME | | | DAY FINDINGS: The bones are well-mineralized and well aligned. | | | No fracture or subluxation is evident. The acromioclavicular | | | joint is borderline widened, measuring 6 mm in width. The | | | glenohumeral joint is maintained. Imaged chest and soft tissues are | | | unremarkable. IMPRESSION - 1. BORDERLINE WIDENING OF THE | | | ACROMIOCLAVICULAR JOINT. Dictated and Signed by: Willis Treviño MD | | | Electronically signed: 02/09/2018 12:36 PM | | + + + + + | Procedure Note | + + | Jonathan, Rad Results In - 02/09/2018 12:39 PM PDT THREE VIEWS LEFT SHOULDER 02/09/2018 | | 9:57 AMCLINICAL HISTORY: shoulder painCOMPARISON: RIGHT SHOULDER RADIOGRAPHS FROM THE | | SAME DAYFINDINGS: The bones are well-mineralized and well aligned. No fracture | | orsubluxation is evident. The acromioclavicular joint is borderline widened,measuring 6 | | mm in width. The glenohumeral joint is maintained. Imaged chestand soft tissues are | | unremarkable.IMPRESSION -1. BORDERLINE WIDENING OF THE ACROMIOCLAVICULAR | | JOINT.Dictated and Signed by: Willis Treviño MD Electronically signed: 02/09/2018 12:36 PM | |subluxation is evident. The acromioclavicular joint is borderline widened, | |measuring 6 mm in width. The glenohumeral joint is maintained. Imaged chest | |and soft tissues are unremarkable. | | | |IMPRESSION - | |1. BORDERLINE WIDENING OF THE ACROMIOCLAVICULAR JOINT. | | | |Dictated and Signed by: Willis Treviño MD | | Electronically signed: 02/09/2018 12:36 PM | + + + +---------+ + + | Performing | Address | City/State/Zipcode | Phone Number | | Organization | | | | + +---------+ + + | [facility] | | | | + +---------+ + + documented in this encounter Visit Diagnoses + + | Diagnosis | + + | Shoulder pain, unspecified chronicity, unspecified laterality - Primary | + + documented in this encounter
--- OUTSIDE RECORDS SUMMARY | ~2019-06-08 | XMS | Encounter Summary ---
Demographics + + + | Address | [address] | | | [place] [address] | + + + | Home Phone | | + + + | Preferred Language | Unknown | + + + | Marital Status | Single | + + + | Evangelical Affiliation | 1009 | + + + | Race | Unknown | + + + | Ethnic Group | Unknown | + + + Author + + + | Author | [facility] | | | and [place] | + + + | Organization | [facility] | | | and [place] | + + + | Address | Unknown | + + + | Phone | Unavailable | + + + Support + + +---------+ + | Name | Relationship | Address | Phone | + + +---------+ + | Ed [place] | ECON | Unknown | | + + +---------+ + Care Team Providers + +------+ + | Care Thread Drawer Name | Role | Phone | + [...] | Specialty | Orthopedic | Diagnoses | Kevin | | | | Services | Surgery | Tear of | Sanju Otoole MD | Carly, | | | Required | | left | [address] | MD Satya | | | | | acetabular | [address] | [address] | | | | | labrum, | [place], | [address] | | | | | initial | [place] [address] | [place] | | | | | encounter | Phone: | [address] | | | | | | [phone] | Phone: | | | | | | Fax: | [phone] | | | | | | [phone] | Fax: | | | | | | | [phone] | +--------+ + + + + + Reason for Visit + + + | Reason | Comments | + + + | Results, Imaging | | + + + Encounter Details +--------+ + + + + | Date | Type | Department | Care Team | Description | +--------+ + + + + | 12/22/ | Telephone | [facility] | Sanju Brown, | Results, Imaging | | 2017 | | PHYSIATRY [address] | MD [address] | | | | | [place], | [place], [place] | | | | | [place] [address] | [address] | | | | | [phone] | | | +--------+ + + + [...] | + + +--------+ + + | Orthopedic Surgery, | Outpatient | Routin | Tear of left | Ordered: 12/22/2017 | | External - AMB | Referral | e | acetabular labrum, | | | Referral | | | initial encounter | | + + +--------+ + + documented as of this encounter Visit Diagnoses + + | Diagnosis | + + | Tear of left acetabular labrum, initial encounter - Primary | + + documented in this encounter"
--- OUTSIDE RECORDS SUMMARY | ~2019-06-08 | XMS | Encounter Summary ---
Demographics + + + | Address | [address] | | | [place] [address] | + + + | Home Phone | | + + + | Preferred Language | Unknown | + + + | Marital Status | Single | + + + | Gnosticist Affiliation | 1009 | + + + | Race | Unknown | + + + | Ethnic Group | Unknown | + + + Author + + + | Author | [facility] | | | and [place] | + + + | Organization | [facility] | | | and [place] | + + + | Address | Unknown | + + + | Phone | Unavailable | + + + Support + + +---------+ + | Name | Relationship | Address | Phone | + + +---------+ + | Ed [place] | ECON | Unknown | | + + +---------+ + Care Team Providers + +------+ + | Care Color Straining Bag Washer Name | Role | Phone | [...] of right | | | | [address] | [place] | wrist (Primary Dx); | | | | [place] | [place] [address] | Right wrist pain | | | | [address] | [phone] | | | | | [phone] | | | +--------+ + + + [...]
--- OUTSIDE RECORDS SUMMARY | ~2019-06-08 | XMS | Encounter Summary ---
Demographics + + + | Address | [address] | | | [place] [address] | + + + | Home Phone [...] | Author | [facility] | | | and [place] | + + + | Organization | [facility] | | | and [place] | + + + | Address | Unknown | + + + | Phone | Unavailable | + + + Support + + +---------+ + | Name | Relationship | Address | Phone | + + +---------+ + | Ed Kevin | ECON | Unknown | | + + +---------+ + Care Team Providers + +------+ + | Care Special Inspector Name | Role | Phone | + [...] Closed | | Radiology | Diagnoses | Brown, | [facility] | | | | | Left hip | Sanju Otoole MD | [address] | | | | | pain | [address] | [place], | | | | | Procedures | [address] | [place] | | | | | MRI Hip Left | [place], | [address] | | | | | Arthrogram | [place] [address] | Phone: | | | | | w Contrast | Phone: | [phone] | | | | | [place] [facility], | [phone] | Fax: | | | | | JOINT OF LEG | Fax: | [phone] | | | | | W/CONTRAST | [phone] | | +--------+--------+ + + + + Reason for Visit Auth/Cert +--------+--------+ + [...] + + | 12/22/ | Hospital | [facility] | Sanju Brown, | Left hip pain | | 2018 | Encounter | [facility] [address] | MD [address] | | | | | [place], | [place], [place] | | | | | [place] [address] | [address] | | | | | [phone] | | | +--------+ + + + [...] + +--------+ + + + | MRI HIP LEFT | Routin | 12/22/2017 | Left hip pain | Results for this | | ARTHROGRAM W | e | 9:59 AM | | procedure are in the | | CONTRAST | | PDT | | results section. | + +--------+ + + + documented in this encounter Results MRI Hip Left Arthrogram w Contrast (12/22/2017 9:59 AM PDT) + + | Specimen | + + | | + + + + + | Narrative | Performed At | + + + | MR ARTHROGRAM LEFT HIP 12/22/2017 9:05 AM CLINICAL HISTORY:hip | [facility] | | pain COMPARISON: Images from preceding intra-articular | | | contrast injection. TECHNIQUE: Following the uneventful | | | intraarticular injection of a dilute gadolinium solution into the | | | left hip, the following 3T MR sequences were obtained: 1. Coronal T1 | | | and axial fat suppressed proton density through both hips. 2. Small | | | field of view axial, sagittal and coronal fat suppressed T1 and | | | coronal fat suppressed proton density through the left hip. | | | FINDINGS: Marrow signal is normal without evidence of fracture or | | | edema of other etiology. The hip and sacroiliac joints are | | | maintained along with the pubic symphysis. An oblique | | | contrast-filled cleft courses through the anterior and superior left | | | acetabular labrum, consistent with labral tear. This extends to the | | | junction of the labrum and bony acetabulum anteriorly, suggesting | | | localized labral detachment at this level. Contrast-filled cleft | | | near the junction of the labrum and acetabulum is also noted | | | inferiorly. Mild to moderate cartilage loss is suggested superiorly | | | in the left hip, without visible focal chondral defect. No | | | intra-articular loose body is identified. Ligamentous support | | | structures appear intact. Myotendinous and cutaneous/subcutaneous | | | tissues are symmetric and unremarkable. Adjacent fluid signal | | | cysts measuring up to 1.9 cm are noted within the left ovary. The | | | uterus and right ovary appear to be absent. The bladder and imaged | | | bowel are unremarkable. No ascites, pathologic lymph node | | | enlargement or hernia is evident. IMPRESSION - 1. LEFT | | | ACETABULAR LABRAL TEAR AND PROBABLE LOCALIZED ANTERIOR AND INFERIOR | | | LABRAL DETACHMENTS. 2. LEFT HIP CHONDROMALACIA. Dictated and | | | Signed by: Willis Treviño MD Electronically signed: 12/22/2017 11:13 | | | AM | | + + + + + | Procedure Note | + + | Jonathan, Rad Results In - 12/22/2017 11:16 AM PDT MR ARTHROGRAM LEFT HIP 12/22/2017 9:05 | | AMCLINICAL HISTORY:hip pain COMPARISON: Images from preceding intra-articular | | contrast injection.TECHNIQUE: Following the uneventful intraarticular injection of a | | dilutegadolinium solution into the left hip, the following 3T MR sequences were | | obtained: 1. Coronal T1 and axial fat suppressed proton density through both hips. 2. | | Small field of view axial, sagittal and coronal fat suppressed T1 and coronalfat | | suppressed proton density through the left hip.FINDINGS: Marrow signal is normal without | | evidence of fracture or edema of otheretiology. The hip and sacroiliac joints are | | maintained along with the pubicsymphysis. An oblique contrast-filled cleft courses | | through the anterior andsuperior left acetabular labrum, consistent with labral tear. | | This extends tothe junction of the labrum and bony acetabulum anteriorly, suggesting | | localizedlabral detachment at this level. Contrast-filled cleft near the junction of | | thelabrum and acetabulum is also noted inferiorly. Mild to moderate cartilage lossis | | suggested superiorly in the left hip, without visible focal chondral defect. No | | intra-articular loose body is identified. Ligamentous support structuresappear intact. | | Myotendinous and cutaneous/subcutaneous tissues are symmetricand unremarkable.Adjacent | | fluid signal cysts measuring up to 1.9 cm are noted within the leftovary. The uterus | | and right ovary appear to be absent. The bladder and imagedbowel are unremarkable. No | | ascites, pathologic lymph node enlargement or herniais evident.IMPRESSION -1. LEFT | | ACETABULAR LABRAL TEAR AND PROBABLE LOCALIZED ANTERIOR AND INFERIORLABRAL DETACHMENTS.2. | | LEFT HIP CHONDROMALACIA.Dictated and Signed by: Willis Treviño MD Electronically | | signed: 12/22/2017 11:13 AM | |No intra-articular loose body is identified. Ligamentous support structures | |appear intact. Myotendinous and cutaneous/subcutaneous tissues are symmetric | |and unremarkable. | | | |Adjacent fluid signal cysts measuring up to 1.9 cm are noted within the left | |ovary. The uterus and right ovary appear to be absent. The bladder and imaged | |bowel are unremarkable. No ascites, pathologic lymph node enlargement or hernia | |is evident. | | | |IMPRESSION - | |1. LEFT ACETABULAR LABRAL TEAR AND PROBABLE LOCALIZED ANTERIOR AND INFERIOR | |LABRAL DETACHMENTS. | | | |2. LEFT HIP CHONDROMALACIA. | | | |Dictated and Signed by: Willis Treviño MD | | Electronically signed: 12/22/2017 11:13 AM | + + + +---------+ + [...] thigh | + + documented in this encounter"
--- OUTSIDE RECORDS SUMMARY | ~2019-06-08 | XMS | Encounter Summary ---
Demographics + + + | Address | [address] | | | [place] [address] | + + + | Home Phone | | + + + | Preferred Language | Unknown | + + + | Marital Status | Single | + + + | Mormon Affiliation | 1009 | + + + | Race | Unknown | + + + | Ethnic Group | Unknown | + + + Author + + + | Author | [facility] [place] | | | and [place] | + + + | Organization | [facility] [place] | | | and [place] | + + + | Address | Unknown | + + + | Phone | Unavailable | + + + Support + + +---------+ + | Name | Relationship | Address | Phone | + + +---------+ + | Ed [place] | ECON | Unknown | | + + +---------+ + Care Team Providers + +------+ + | Care Blade Changer Name | Role | Phone | + [...] | (Shoulder XR) | | | | [place], | [address] [place] | | | | | [place] [address] | [place] [address] | | | | | [phone] | [phone] | | | | | | | [...]
--- OUTSIDE RECORDS SUMMARY | ~2019-06-08 | XMS | Encounter Summary ---
Demographics + + + | Address | [address] | | | [place] [address] | + + + | Home Phone | | + + + | Preferred Language | Unknown | + + + | Marital Status | Single | + + + | Adventist Affiliation | 1009 | + + + | Race | Unknown | + + + | Ethnic Group | Unknown | + + + Author + + + | Author | [facility] | | | and [place] | + + + | Organization | [facility] | | | and [place] | + + + | Address | Unknown | + + + | Phone | Unavailable | + + + Support + + +---------+ + | Name | Relationship | Address | Phone | + + +---------+ + | Ed [place] | ECON | Unknown | | + + +---------+ + Care Team Providers + +------+ + | Care Optical Effects Line Up Person Name | Role | Phone | + [...] [address] | | | | | [place], | [address] [place] | | | | | [place] [address] | [place] [address] | | | | | [phone] | [phone] | | | | | | | [...]
--- OUTSIDE RECORDS SUMMARY | ~2019-06-08 | XMS | Encounter Summary ---
Demographics + + + | Address | [address] | | | [place] [address] | + + + | Home Phone [...] | Author | [facility] [place] | | | and [place] | + + + | Organization | [facility] [place] | | | and [place] | + + + | Address | Unknown | + + + | Phone | Unavailable | + + + Support + + +---------+ + | Name | Relationship | Address | Phone | + + +---------+ + | Ed [place] | ECON | Unknown | | + + +---------+ + Care Team Providers + +------+ + | Care Oil Tester Name | Role | Phone | + [...] | | | | finger of | [address] | [address] [place] | | | | | right hand | [place], | [place], [place] | | | | | Procedures | [place] [address] | [address] Phone: | | | | | 12/07 | Phone: | [phone] | | | | | Pending-MODA | [phone] | Fax: | | | | | IPA | Fax: | [phone] | | | | | response | [phone] | | +--------+ + + + + + Encounter Details +--------+---------+ + + + | Date | Type | Department | Care Team | Description | +--------+---------+ + + + | 12/30/ | Office | [facility] | Sanju Brown, | Ganglion cyst of | | 2018 | Visit | ORTHOPEDIC SURGERY | [address] | dorsum of right | | | | [address] | [place] [facility] [place] | wrist (Primary Dx); | | | | [place], [place] | [address] | Right wrist pain | | | | [address] | | | | | | [phone] | Jeremy Goodwin | | | | | | [address] | | | | | | [address] [place] | | | | | | [place] [address] | | | | | | [phone] | | | | | | | [...]
--- OUTSIDE RECORDS SUMMARY | ~2019-06-08 | XMS | Encounter Summary ---
Demographics + + + | Address | [address] | | | [place] [address] | + + + | Home Phone [...] | Author | [facility] [place] | | | and [place] | + + + | Organization | [facility] [place] | | | and [place] | + + + | Address | Unknown | + + + | Phone | Unavailable | + + + Support + + +---------+ + | Name | Relationship | Address | Phone | + + +---------+ + | Ed [place] | ECON | Unknown | | + + +---------+ + Care Team Providers + +------+ + | Care Industrial Management Teacher Name | Role | Phone | + +------+ + | Irene Cortes MD | PCP | | + +------+ + Reason for Visit + + + | Reason | Comments | + + + | Medication Refill | | | Assistance | | + + + Encounter Details +--------+ + + + + | Date | Type | Department | Care Team | Description | +--------+ + + + + | 09/20/ | Telephone | [facility] | Nathen Dunn, | Medication Refill | | 2019 | | [address]RY [address] | PA-C [address] | Assistance | | | | [place] [address], | [address] [place] | | | | | [place] [address] | [place] [address] | | | | | [phone] | [phone] | | | | | | | [...] + | Diagnosis | + + | Medication refill - Primary Issue of repeat prescriptions | + + documented in this encounter"
--- OUTSIDE RECORDS SUMMARY | ~2019-06-08 | XMS | Encounter Summary ---
Demographics + + + | Address | [address] | | | [place] [address] | + + + | Home Phone | | + + + | Preferred Language | Unknown | + + + | Marital Status | Single | + + + | Christian Affiliation | 1009 | + + + | Race | Unknown | + + + | Ethnic Group | Unknown | + + + Author + + + | Author | [facility] | | | and [place] | + + + | Organization | [facility] | | | and [place] | + + + | Address | Unknown | + + + | Phone | Unavailable | + + + Support + + +---------+ + | Name | Relationship | Address | Phone | + + +---------+ + | Ed [place] | ECON | Unknown | | + + +---------+ + Care Team Providers + +------+ + | Care Owner Spa Director Name | Role | Phone | + +------+ + | Irene Cortes MD | PCP | | + +------+ + Reason for Visit + + + | Reason | Comments | + + + | Referral | | + + + Encounter Details +--------+ + + + + | Date | Type | Department | Care Team | Description | +--------+ + + + + | 02/02/ | Telephone | [facility] | Nathen Dunn, | Referral | | 2019 | | [address] | PA-C [address] | | | | | [place], | [address] [place] | | | | | [place] [address] | [place] [address] | | | | | [phone] | [phone] | | | | | | | [...]
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
--- OUTSIDE RECORDS SUMMARY | ~2019-06-08 | XMS | Encounter Summary ---
Demographics + + + | Address | [address] | | | [place] [address] | + + + | Home Phone | | + + + | Preferred Language | Unknown | + + + | Marital Status | Single | + + + | Zoroastrian Affiliation | 1009 | + + + | Race | Unknown | + + + | Ethnic Group | Unknown | + + + Author + + + | Author | and [facility] | | | and [place] | + + + | Organization | and [facility] | | | and [place] | + + + | Address | Unknown | + + + | Phone | Unavailable | + + + Support + + +---------+ + | Name | Relationship | Address | Phone | + + +---------+ + | Ed [place] | ECON | Unknown | | + + +---------+ + Care Team Providers + +------+ + | Care Mortuary Beautician Name | Role | Phone | + +------+ + PCP | Unavailable | + +------+ + Encounter Details +--------+ + + + + | Date | Type | Department | Care Team | Description | +--------+ + + + + | 11/28/ | Hospital | [facility] | Toño Zhang MD | | | 2000 - | Encounter | MEDICAL CENTER LABOR | [address] | | | | | [address] | [address] [place], [place] | | | 12/06/ | | [address] | [id number] | | | 2000 | | [place], [place] | | | | | | [address] | | | | | | [phone] | | | +--------+ + + + [...]
--- OUTSIDE RECORDS SUMMARY | ~2019-06-08 | XMS | Encounter Summary ---
Demographics + + + | Address | [address] | | | [place] [address] | + + + | Home Phone | | + + + | Preferred Language | Unknown | + + + | Marital Status | Single | + + + | Mandaen Affiliation | 1009 | + + + | Race | Unknown | + + + | Ethnic Group | Unknown | + + + Author + + + | Author | [facility] | | | and [place] | + + + | Organization | [facility] | | | and [place] | + + + | Address | Unknown | + + + | Phone | Unavailable | + + + Support + + +---------+ + | Name | Relationship | Address | Phone | + + +---------+ + | Ed [place] | ECON | Unknown | | + + +---------+ + Care Team Providers + +------+ + | Care Financial Rep Name | Role | Phone | + [...] | | left | [address] | [address] | | | | | acetabular | [address] | [address] | | | | | labrum, | [address] | [address] | | | | | initial | [place], | [place] | | | | | encounter | [place] [address] | [place], [place] | | | | | Tear of left | Phone: | [address] Phone: | | | | | acetabular | [phone] | [phone] | | | | | labrum | Fax: | Fax: | | | | | Procedures | [phone] | [phone] | | | | | HIM 01/10/18 | | | +--------+ + + + + + Encounter Details +--------+---------+ + + + | Date | Type | Department | Care Team | Description | +--------+---------+ + + + | 02/21/ | Office | [facility] | Raul Monaco, | Left hip pain | | 2018 | Visit | SURGICAL | [place] [address] | (Primary Dx); Tear | | | | SPECIALITIES | [address] | of left acetabular | | | | [facility] | [place], [place] | labrum, initial | | | | [address] | [address] | encounter | | | | [address] [place] | | | | | | [place], [place] | | | | | | [address] | | | | | | [phone] | | | +--------+---------+ + + + [...] might be differen t from the original. [facility] Pre-Surgical Screening Reviewed Date: 02/21/2018 BMI: Estimated body mass index is 30.48 kg/m as calculated fro m the following: Height as of this encounter: 1.702 m (5' 7"). Weight as of this encounter: 88.3 kg (194 lb 9.6 oz). Medical History Yes No Heart/Cardiovascular (incl. Hypertension) [x] [] Dx:HTN EKG: Stents: Date Placed: Cath Lab Radiological Technologist: Anti-Coag: Lung/Respiratory: [] [x] Dx: Treatment: Kidney/Liver: [...] | | Indications: Left hip pain | [place] - | | | IMAGING - [facility] [...] + + | BARBARA OLIVEIRAROCIO RICKNE | [facility], [address] | [place] [address] | [phone] | | - IMAGING - [facility] | [...]
--- OUTSIDE RECORDS SUMMARY | ~2019-06-08 | XMS | Encounter Summary ---
Demographics + + + | Address | [address] | | | [place] [address] | + + + | Home Phone | | + + + | Preferred Language | Unknown | + + + | Marital Status | Single | + + + | Taoist Affiliation | 1009 | + + + | Race | Unknown | + + + | Ethnic Group | Unknown | + + + Author + + + | Author | [facility] | | | and [place] | + + + | Organization | [facility] | | | and [place] | + + + | Address | Unknown | + + + | Phone | Unavailable | + + + Support + + +---------+ + | Name | Relationship | Address | Phone | + + +---------+ + | Ed Java | ECON | Unknown | | + + +---------+ + Care Team Providers + +------+ + | Care Accounting Administrative Assistant Name | Role | Phone | + +------+ + | Irene Cortes MD | PCP | | + +------+ + Reason for Visit + + + | Reason | Comments | + + + | Results, Imaging | Shoulder MRI | + + + Encounter Details +--------+ + + + + | Date | Type | Department | Care Team | Description | +--------+ + + + + | 01/09/ | Telephone | [facility] [place] | Nathen Dunn, | Results, Imaging | | 2019 | | PHYSIATRY [address] | PA-C [address] | (Shoulder MRI ) | | | | [place], | [address] [place] | | | | | [place] [address] | [place] [address] | | | | | [phone] | [phone] | | | | | | | [...]
--- OUTSIDE RECORDS SUMMARY | ~2019-06-08 | XMS | Encounter Summary ---
Demographics + + + | Address | [address] | | | [place] [address] | + + + | Home Phone | | + + + | Preferred Language | Unknown | + + + | Marital Status | Single | + + + | Pentecostal Affiliation | 1009 | + + + | Race | Unknown | + + + | Ethnic Group | Unknown | + + + Author + + + | Author | [facility] | | | and [place] | + + + | Organization | [facility] | | | and [place] | + + + | Address | Unknown | + + + | Phone | Unavailable | + + + Support + + +---------+ + | Name | Relationship | Address | Phone | + + +---------+ + | Ed Bayard | ECON | Unknown | | + + +---------+ + Care Team Providers + +------+ + | Care Community Assistant Name | Role | Phone | + +------+ + PCP | Unavailable | + +------+ + Encounter Details +--------+ + + + + | Date | Type | Department | Care Team | Description | +--------+ + + + + | 11/13/ | Hospital | [facility] | Conversion | Threatened premature | | 2000 - | Encounter | MEDICAL CENTER LABOR | Transaction, | labor, | | | | [address] | Provider Unknown | antepartum(644.03) | | 11/16/ | | [address] | | | | 2000 | | [place], [place] | (Fax) | | | | | [address] | | | | | | [phone] | | | +--------+ + + + [...]
--- OUTSIDE RECORDS SUMMARY | ~2019-06-08 | XMS | Clinical Summary ---
Demographics + + + | Address | [address] | | | [place] [address] | + + + | Home Phone | | + + + | Preferred Language | Unknown | + + + | Marital Status | Single | + + + | Christianity Affiliation | 1009 | + + + | Race | Unknown | + + + | Ethnic Group | Unknown | + + + Author + + + | Author | [facility] | | | and [place] | + + + | Organization | [facility] | | | and [place] | + + + | Address | Unknown | + + + | Phone | Unavailable | + + + Support + + +---------+ + | Name | Relationship | Address | Phone | + + +---------+ + | Ed [place] | ECON | Unknown | | + + +---------+ + Care Team Providers + +------+ + | Care Racebook Writer Name | Role | Phone | + [...] +-------+--------+ +--------+-------+---------+------+ | BCBS | BCBS | [id number] | 12/30/19 | | | PPO | [...] | 1976 | [phone] | [place] [address] | | | [email or web address] | | | 4 (Home) | | | | | | | [phone] | | | | | | | 4 (Work) | | + +--------+ +--------+ + + Advance Directives + + + + + | Type | Date Recorded | Patient | Explanation | | | | Technical Designer | | + + + + + | Power of | | | | | Case Specialist | | | | + + + + + | Advance | 08/05/2017 7:22 | | | | Directive | PM | | | + + + + +
--- OUTSIDE RECORDS SUMMARY | ~2019-06-08 | XMS | Encounter Summary ---
Demographics + + + | Address | [address] | | | [place] [address] | + + + | Home Phone | | + + + | Preferred Language | Unknown | + + + | Marital Status | Single | + + + | Jewish Affiliation | 1009 | + + + | Race | Unknown | + + + | Ethnic Group | Unknown | + + + Author + + + | Author | [facility] | | | and [place] | + + + | Organization | [facility] | | | and [place] | + + + | Address | Unknown | + + + | Phone | Unavailable | + + + Support + + +---------+ + | Name | Relationship | Address | Phone | + + +---------+ + | Ed [place] | ECON | Unknown | | + + +---------+ + Care Team Providers + +------+ + | Care Director Diabetes Name | Role | Phone | + [...] [address] | work) | | | | [place], | [address] [place] | | | | | [place] [address] | [place] [address] | | | | | [phone] | [phone] | | | | | | | [...]
--- OUTSIDE RECORDS SUMMARY | ~2019-06-08 | XMS | Encounter Summary ---
Demographics + + + | Address | [address] | | | [place] [address] | + + + | Home Phone [...] | Author | [facility] | | | and [place]illes[place] | + + + | Organization | [facility] | | | and [place] | + + + | Address | Unknown | + + + | Phone | Unavailable | + + + Support + + +---------+ + | Name | Relationship | Address | Phone | + + +---------+ + | Ed [place] | ECON | Unknown | | + + +---------+ + Care Team Providers + +------+ + | Care Bulb Filler Name | Role | Phone | + [...] + + | 03/14/ | Telephone | [facility] | Nathen Dunn, | Medication Question | | 2019 | | PHYSIATRY [address] | PA-C [address] | | | | | [place], | [address] [place] | | | | | [place] [address] | [place] [address] | | | | | [phone] | [phone] | | | | | | | [...]
--- OUTSIDE RECORDS SUMMARY | ~2019-06-08 | XMS | Encounter Summary ---
Demographics + + + | Address | [address] | | | [place] [address] | + + + | Home Phone | | + + + | Preferred Language | Unknown | + + + | Marital Status | Single | + + + | Sikhism Affiliation | 1009 | + + + | Race | Unknown | + + + | Ethnic Group | Unknown | + + + Author + + + | Author | [facility] [place] | | | and [place]illes[place] | + + + | Organization | [facility] [place] | | | and [place] | + + + | Address | Unknown | + + + | Phone | Unavailable | + + + Support + + +---------+ + | Name | Relationship | Address | Phone | + + +---------+ + | Ed [place] | ECON | Unknown | | + + +---------+ + Care Team Providers + +------+ + | Care Purchasing Contracting Clerk Name | Role | Phone | + +------+ + | Rosalba Huerta | PCP | | + +------+ + Encounter Details +--------+ + + + + | Date | Type | Department | Care Team | Description | +--------+ + + + + | 12/30/ | Hospital | [facility] | Jeremy Goodwin | Ganglion cyst of | | 2018 | Encounter | [facility] | [address] | finger of right hand | | | | [address] [place] | [place] | | | | | [place] | [place] [address] | | | | | [address] | [phone] | | | | | [phone] | | | +--------+ + + + [...]
--- OUTSIDE RECORDS SUMMARY | ~2019-06-08 | XMS | Encounter Summary ---
Demographics + + + | Address | [address] | | | [place] [address] | + + + | Home Phone [...] + + + | Author | [facility] [place] | | | and [place]illes[place] | + + + | Organization | [facility] | | | and [place] | + + + | Address | Unknown | + + + | Phone | Unavailable | + + + Support + + +---------+ + | Name | Relationship | Address | Phone | + + +---------+ + | Ed [place] | ECON | Unknown | | + + +---------+ + Care Team Providers + +------+ + | Care Online Activist Name | Role | Phone | + +------+ + PCP | Unavailable | + +------+ + Reason for Visit Service/Procedure (Routine) +--------+--------+ + + + + | Status | Reason | Specialty | Diagnoses / | Referred By | Referred To | | | | | Procedures | Contact | Contact | +--------+--------+ + + + + | Closed | | Physical | Diagnoses | | [facility] | | | | Medicine and | Subacromial | Jame, | Physiatry | | | | Rehabilitatio | bursitis of | Pamela, | [address] | | | | n | left | PA-C [address] | [place], | | | | | shoulder | [address] | [place] | | | | | joint | [place] | [address] | | | | | Procedures | [address] | Phone: | | | | | [place] | Phone: | [phone] | | | | | ARTHROCENTES | [phone] | Fax: | | | | | [place] | Fax: | [phone] | | | | | ASPIR&/INJ | [phone] | | | | | | MAJOR | | | | | | | JT/BURSA W/O | | | | | | | [place] | | | | | | | TRIAMCINOLON | | | | | | | E ACET INJ | | | | | | | NOS, 10 MG | | | | | | | MA LIDOCAINE | | | | | | | INJECTION, | | | | | | | 10 MG [place] | | | | | | | OFFICE | | | | | | | OUTPATIENT | | | | | | | VISIT 10 | | | | | | | MINUTES | | | | | | | Appt. | | | | | | | 04/18/18 In | | | | | | | office | | | | | | [...] Description | +--------+---------+ + + + | 04/25/ | Office | [facility] | Nathen Dunn, | Subacromial bursitis | | 2017 | Visit | PHYSIATRY [address] | PA-C [address] | of left shoulder | | | | [place], | [address] [place] | joint (Primary Dx); | | | | [place] [address] | [place] [address] | Yeast infection of | | | | [phone] | [phone] | the vagina | | | | | | | [...] + + documented as of this encounter Patient Instructions Patient Instructions Nathen Dunn PA-C - 04/25/2018 11:00 AM PST- Ice the area as needed 20 minutes per hour. Multiple times as needed over the next few days. - Watch for signs of infection (redness around injection site, swelling, fever) - No strenuous activity for 24-48 hours after the procedure. - Please call the office with questions or concerns. Diflucan ordered to pharmacy for infection. Cut back on ibuprofen to less than 3000mg a day. documented in this encounter Progress Notes Nathen Dunn PA-C - 04/25/2018 11:00 AM PSTFormatting of this note might be different fro m the original. Encounter Diagnoses Name Primary? Subacromial bursitis of left shoulder joint Yes Yeast infection of the vagina HPI: Laine Tiffany Villatoro is a 42 y.o. female who [...] watch for any signs of infection. Patient also described vaginal itching for the past three weeks which she attributes to a y east infection. She has not seen a medical provider for this yet as she has tried home thera pies. A rx for 1 tab of 150mg of diflucan was called into pharmacy today. Patient will follow-up with as needed. ELECTRONICALLY SIGNED BY: Nathen Dunn PA-C, 04/25/18 documented in this en counter Plan of Treatment Not on filedocumented as of this encounter Visit Diagnoses + + | Diagnosis | + + | Subacromial bursitis of left shoulder joint - Primary | + + | Yeast infection of the vagina Candidiasis of vulva and vagina | + + documented in this encounter Administered Medications + + + +-------+------+ + | Medication Order | MAR | Action | Dose | Rate | Site | | | Action | Date | | | | + + + +-------+------+ + | lidocaine 0.5% injection 2 mL | Given by | 04/25/20 | 2 mLs | | Other | | 2 mL, Other, ONCE, 04/25/18 | Other | 18 11:36 | | | (Comment | | at 1200, For 1 dose | | AM PST | | | ) | + + + +-------+------+ + +---+---+ | | | +---+---+ + + + +-------+---+ + | ropivacaine (NAROPIN) 5 mg/mL | Given by | 04/25/20 | 2 mLs | | Other | | (0.5%) injection 2 mL 2 mL, | Other | 18 11:46 | | | (Comment | | Infiltration, ONCE, 04/25/18 | | AM PST | | | ) | | at 1200, For 1 dose | | | | | | + + + +-------+---+ + +---+---+ | | | +---+---+ + + + +-------+---+ + | triamcinolone acetonide | Given by | 04/25/20 | 40 mg | | Other | | (KENALOG-40) 40 mg/mL injection | Other | 18 11:36 | | | (Comment | | 40 mg 40 mg, Other, ONCE, Mon | | AM PST | | | ) | | 04/25/18 at 1200, For 1 dose, | | | | | | | Shake well. Not for IV use., | | | | | | + + + +-------+---+ + +---+---+ | | | +---+---+ documented in this encounter"
--- OUTSIDE RECORDS SUMMARY | ~2019-06-08 | XMS | Encounter Summary ---
Demographics + + + | Address | [address] | | | [place] [address] | + + + | Home Phone | | + + + | Preferred Language | Unknown | + + + | Marital Status | Single | + + + | Spiritism Affiliation | 1009 | + + + | Race | Unknown | + + + | Ethnic Group | Unknown | + + + Author + + + | Author | [facility] [place] | | | and [place] | + + + | Organization | [facility] [place] | | | and [place] | + + + | Address | Unknown | + + + | Phone | Unavailable | + + + Support + + +---------+ + | Name | Relationship | Address | Phone | + + +---------+ + | Ed [place] | ECON | Unknown | | + + +---------+ + Care Team Providers + +------+ + | Care Production Sanitizer Name | Role | Phone | + [...] PHYSIATRY [address] | MD [address] | | | | | [place], | [place] | | | | | [place] [address] | [address] | | | | | [phone] | | | +--------+ + + + [...]
--- OUTSIDE RECORDS SUMMARY | ~2019-06-08 | XMS | Encounter Summary ---
Demographics + + + | Address | [address] | | | [place] [address] | + + + | Home Phone | | + + + | Preferred Language | Unknown | + + + | Marital Status | Single | + + + | Adventist Affiliation | 1009 | + + + | Race | Unknown | + + + | Ethnic Group | Unknown | + + + Author + + + | Author | [facility] [place] | | | and [place] | + + + | Organization | [facility] [place] | | [...] Team Providers + +------+ + | Care Comp Field Case Manager Name | Role | Phone | [...] | Sanju Otoole MD | [address] | | | | | pain | [address] | [place], | | | | | Procedures | [address] | [place] | | | | | MRI Hip Left | [place], | [address] | | | | | Arthrogram | [place] [address] | Phone: | | | | | w Contrast | Phone: | [phone] | | | | | [place] MRI, | [phone] | Fax: | | | | | JOINT OF LEG | Fax: | [phone] | | | | | W/CONTRAST | [phone] | | +--------+--------+ + + + + [...] + + | 12/22/ | Hospital | [facility] | Sanju Brown, | Left hip pain | | 2018 | Encounter | MED CTR MRI [address] | MD [address] | | | | | [place], | [place], [place] | | | | | [place] [address] | [address] | | | | | [phone] | | | +--------+ + + + [...]
--- OUTSIDE RECORDS SUMMARY | ~2019-06-08 | XMS | Encounter Summary ---
Demographics + + + | Address | [address] | | | [place] [address] | + + + | Home Phone [...] | Author | [facility] [place] | | | and [place]illes[place] | + + + | Organization | [facility] [place] | | | and [place] | + + + | Address | Unknown | + + + | Phone | Unavailable | + + + Support + + +---------+ + | Name | Relationship | Address | Phone | + + +---------+ + | Ed [place] | ECON | Unknown | | + + +---------+ + Care Team Providers + +------+ + | Care Opthalmic Tech Name | Role | Phone | + [...] + | 09/20/ | Telephone | [facility] | Nathen Dunn, | Medication Refill | | 2019 | | PHYSIATRY [address] | PA-C [address] | Assistance | | | | [place], | [address] [place] | | | | | [place] [address] | [place] [address] | | | | | [phone] | [phone] | | | | | | | [...]
--- OUTSIDE RECORDS SUMMARY | ~2019-06-08 | XMS | Encounter Summary ---
Demographics + + + | Address | [address] | | | [place] [address] | + + + | Home Phone | | + + + | Preferred Language | Unknown | + + + | Marital Status | Single | + + + | Buddhist Affiliation | 1009 | + + + | Race | Unknown | + + + | Ethnic Group | Unknown | + + + Author + + + | Author | [facility] [place] | | | and [place] | + + + | Organization | [facility] [place] | | | and [place] | + + + | Address | Unknown | + + + | Phone | Unavailable | + + + Support + + +---------+ + | Name | Relationship | Address | Phone | + + +---------+ + | Ed [place] | ECON | Unknown | | + + +---------+ + Care Team Providers + +------+ + | Care Superintendent Board Mill Name | Role | Phone | + [...] [address] | | | | | [place], | [address] [place] | | | | | [place] [address] | [place] [address] | | | | | [phone] | [phone] | | | | | | | [...]
--- OUTSIDE RECORDS SUMMARY | ~2019-06-08 | XMS | Encounter Summary ---
Demographics + + + | Address | [address] | | | [place] [address] | + + + | Home Phone | | + + + | Preferred Language | Unknown | + + + | Marital Status | Single | + + + | Congregational Affiliation | 1009 | + + + | Race | Unknown | + + + | Ethnic Group | Unknown | + + + Author + + + | Author | [facility] [place] | | | and [place] | + + + | Organization | [facility] [place] | | | and [place] | + + + | Address | Unknown | + + + | Phone | Unavailable | + + + Support + + +---------+ + | Name | Relationship | Address | Phone | + + +---------+ + | Ed [place] | ECON | Unknown | | + + +---------+ + Care Team Providers + +------+ + | Care Putty And Patch Worker Name | Role | Phone | [...] | | | | CENTER [address] | [place], [place] | | | | | [place], [place] | [address] | | | | | [address] | | | | | | [phone] | | | +--------+ + + + [...] | | mg 10 mg, Oral, ONCE, [facility] 08/05/17 | | 18 10:00 | | [...] | | | Left | | ONCE, [facility] 08/05/17 at 2145, For 1 | | PM PST | | | | | dose | | | | | | + +-------+ +-------+---+ + +---+---+ | | | +---+---+ documented in this encounter
--- OUTSIDE RECORDS SUMMARY | ~2019-06-08 | XMS | Encounter Summary ---
Demographics + + + | Address | [address] | | | [place] [address] | + + + | Home Phone [...] | Author | [facility] [place] | | | and [place] | + + + | Organization | [facility] [place] | | | and [place] | + + + | Address | Unknown | + + + | Phone | Unavailable | + + + Support + + +---------+ + | Name | Relationship | Address | Phone | + + +---------+ + | Ed [place] | ECON | Unknown | | + + +---------+ + Care Team Providers + +------+ + | Care Blower Feeder Dyed Raw Stock Name | Role | Phone | + [...] | joint | [place], | [place] [address] | | | | | Procedures | [place] [address] | Phone: | | | | | [place] | Phone: | [phone] | | | | | ARTHROCENTES | [phone] | Fax: | | | | | [place] | Fax: | [phone] | | | | | ASPIR&/INJ | [phone] | | | | | | MAJOR | | | | | | | JT/BURSA W/O | | | | | | | [place] | | | | | | | [...] of left shoulder | | | | [place], | [address] [place] | joint (Primary Dx) | | | | [place] [address] | [place] [address] | | | | | [phone] | [phone] | | | | | | | [...] allows the bursa to heal. Prescription or vacc-bge-itxfaah pain medicines. These help reduce inflammation, pain, [...] get worse New symptoms Date Last Reviewed: 08/08/201519993568-7826 [employer]. [address] [place] [address]. All righ ts reserved. This information is [...]
--- OUTSIDE RECORDS SUMMARY | ~2019-06-08 | XMS | Encounter Summary ---
Demographics + + + | Address | [address] | | | [place] [address] | + + + | Home Phone [...] + | Author | [facility] [place] | | | and [place] | + + + | Organization | [facility] [place] | | | and [place] | + + + | Address | Unknown | + + + | Phone | Unavailable | + + + Support + + +---------+ + | Name | Relationship | Address | Phone | + + +---------+ + | Ed [place] | ECON | Unknown | | + + +---------+ + Care Team Providers + +------+ + | Care Liquefaction And Regasification Helper Name | Role | Phone | + +------+ + | Rosalba Huerta | PCP | | + +------+ + Encounter Details +--------+ + + + + | Date | Type | Department | Care Team | Description | +--------+ + + + + | 02/09/ | Hospital | [facility] | Nathen Dunn, | Shoulder pain, | | 2018 | Encounter | MED CTR XRAY [address] | PA-C [address] | unspecified | | | | [place] | [address] [place] | chronicity, | | | | [place] [address] | [place] [address] | unspecified | | | | [phone] | [phone] | laterality | | | | | [...] +--------+ + + + | XR SHOULDER LEFT 2 + | Routin | 02/09/2018 | Shoulder pain, | Results for this | | VW | e | 9:57 AM | unspecified | procedure are in the | | | | PDT | chronicity, | results section. | | | | | unspecified | | | | | | laterality | | + +--------+ + + + documented in this encounter Results XR Shoulder Left 2 + Vw (02/09/2018 9:57 AM PDT) + + | [...]
--- OUTSIDE RECORDS SUMMARY | ~2019-06-08 | XMS | Encounter Summary ---
Demographics + + + | Address | [address] | | | [place] [address] | + + + | Home Phone [...] + + + | Author | [facility] [place] | | | and [place] | + + + | Organization | [facility] [place] | | | and [place] | + + + | Address | Unknown | + + + | Phone | Unavailable | + + + Support + + +---------+ + | Name | Relationship | Address | Phone | + + +---------+ + | Ed [place] | ECON | Unknown | | + + +---------+ + Care Team Providers + +------+ + | Care Digital Ad Trafficker Name | Role | Phone | + +------+ + | Irene Cortes MD | PCP | | + +------+ + Encounter Details +--------+ + + + + | Date | Type | Department | Care Team | Description | +--------+ + + + + | 01/06/ | Hospital | [facility] | Nathen Dunn, | Shoulder pain, | | 2019 | Encounter | MED CTR XRAY [address] | PA-C [address] | unspecified | | | | [place] | [address] [place] | chronicity, | | | | [place] [address] | [place] [address] | unspecified | | | | [phone] | [phone] | laterality | | | | | [...] mg by mouth | | 1 | 09/11/19 | | | (NEURONTIN) 300 mg | [...] + +--------+ + + + | FL SHOULDER | Routin | 01/06/2019 | Shoulder pain, | Results for this | | INJECTION LEFT FOR | e | 10:05 AM | unspecified | procedure are in the | | MRI OR CT | | PDT | chronicity, | results section. | | | | | unspecified | | | | | | laterality | | + +--------+ + + + documented in this encounter Results FL Shoulder Injection Left for MRI or CT (01/06/2019 10:05 AM PDT) + + | Specimen | + + | | + + + + + | Narrative | Performed At | + + + | EXAM: FL SHOULDER INJECTION LEFT FOR MRI OR CT dated 01/06/2019 9:09 | [facility] | | AM HISTORY:left shoulder pain PROCEDURE: The risks, benefits, | | | indications, and alternatives to the procedure were discussed with | | | the patient in advance. Informed consent was obtained and | | | documented. The patient's prior imaging studies and clinical | | | information, if available, are reviewed preprocedurally. A timeout | | | was taken. The patient was placed supine on the fluoroscopic table. | | | Fluoroscopy is utilized to place percutaneous access to the left | | | glenohumeral joint. The skin entrance site is marked. It is then | | | prepped and draped in the usual sterile manner. Local anesthesia | | | was obtained at the skin surface and deep to the joint using 2 cc of | | | 1% lidocaine or Xylocaine without epinephrine. A 3 1/2 inch 22-gauge | | | spinal needle is advanced into the glenohumeral joint under | | | fluoroscopic guidance. A 2 cc injection of lidocaine or Xylocaine | | | followed by a 1 cc injection of Omnipaque 300 confirmed | | | intra-articular positioning of the needle tip. An additional 8 to | | | 10 cc's of a dilute gadolinium contrast mixture are further injected. | | | Intermittent fluoroscopy confirms intra-articular positioning of the | | | needle tip and diffusion of the contrast mixture. The needle was | | | removed. Hemostasis was achieved at the skin surface. A Band-Aid | | | was applied. There is no significant rotator cuff tear on the | | | obtained images.. IMPRESSION - Successful fluoroscopic guided | | | shoulder arthrogram prior to MRI. Dictated and Signed by: Igor Tripp | | | MD Faustino Electronically signed: 01/06/2019 4:19 PM | | + + + + + | Procedure Note | + + | Jonathan, Rad Results In - 01/06/2019 4:23 PM PDT EXAM: FL SHOULDER INJECTION LEFT FOR | | MRI OR CT dated 01/06/2019 9:09 AMHISTORY:left shoulder painPROCEDURE: The risks, | | benefits, indications, and alternatives to the procedurewere discussed with the patient | | in advance. Informed consent was obtained anddocumented. The patient's prior imaging | | studies and clinical information, ifavailable, are reviewed preprocedurally. A timeout | | was taken. The patient wasplaced supine on the fluoroscopic table. Fluoroscopy is | | utilized to placepercutaneous access to the left glenohumeral joint. The skin entrance | | site ismarked. It is then prepped and draped in the usual sterile manner. | | Localanesthesia was obtained at the skin surface and deep to the joint using 2 cc of1% | | lidocaine or Xylocaine without epinephrine. A 3 1/2 inch 22-gauge spinalneedle is | | advanced into the glenohumeral joint under fluoroscopic guidance. A 2cc injection of | | lidocaine or Xylocaine followed by a 1 cc injection of [id number] confirmed | | intra-articular positioning of the needle tip. An additional 8 to10 cc's of a dilute | | gadolinium contrast mixture are further injected. Intermittent fluoroscopy confirms | | intra-articular positioning of the needle tipand diffusion of the contrast mixture. The | | needle was removed. Hemostasis wasachieved at the skin surface. A Band-Aid was | | applied. There is no significantrotator cuff tear on the obtained images..IMPRESSION | | -Successful fluoroscopic guided shoulder arthrogram prior to MRI.Dictated and Signed by: | | Igor Harmon MD Electronically signed: 01/06/2019 4:19 PM | |achieved at the skin surface. A Band-Aid was applied. There is no significant | |rotator cuff tear on the obtained images.. | | | |IMPRESSION - | | | |Successful fluoroscopic guided shoulder arthrogram prior to MRI. | | | |Dictated and Signed by: Igor Harmon MD | | Electronically signed: 01/06/2019 4:19 PM | + + + +---------+ + [...] laterality | + + documented in this encounter Administered Medications + +--------+ + +------+------+ | Medication Order | MAR | Action | Dose | Rate | Site | | | Action | Date | | | | + +--------+ + +------+------+ | gadobutrol (GADAVIST) injection | Given | 01/07/20 | 0.05 mLs | | | | 0.05 mL 0.05 mL, | | 19 9:49 | | | | | Intra-articular, ONCE PRN, Other, | | AM PDT | | | | | Starting 8/9/19 at 0947, For | | | | | | | 1 dose, MRI | | | | | | + +--------+ + +------+------+ +---+---+ | | | +---+---+ + +-------+ +-------+---+---+ | iohexol (OMNIPAQUE 300) 300 | Given | 01/07/20 | 5 mLs | | | | mg/mL injection 5 mL 5 mL, | | 19 10:15 | | | | | Intra-articular, ONCE, Wed01/06/19 | | AM PDT | | | | | at 1015, For 1 dose, Radiology | | | | | | + +-------+ +-------+---+---+ +---+---+ | | | +---+---+ + +-------+ +-------+---+ + | lidocaine 1% injection 5 mL 5 | Given | 01/07/20 | 5 mLs | | Other | | mL, Intradermal, ONCE, Wed01/06/19 | | 19 10:15 | | | (Comment | | at 1015, For 1 dose | | AM PDT | | | ) | + +-------+ +-------+---+ + +---+---+ | | | +---+---+ documented in this encounter"
--- OUTSIDE RECORDS SUMMARY | ~2019-06-08 | XMS | Encounter Summary ---
Demographics + + + | Address | [address] | | | [place] [address] | + + + | Home Phone | | + + + | Preferred Language | Unknown | + + + | Marital Status | Single | + + + | Gnosticism Affiliation | 1009 | + + + | Race | Unknown | + + + | Ethnic Group | Unknown | + + + Author + + + | Author | [facility] [place] | | | and [place] | + + + | Organization | [facility] [place] | | | and [place] | + + + | Address | Unknown | + + + | Phone | Unavailable | + + + Support + + +---------+ + | Name | Relationship | Address | Phone | + + +---------+ + | Ed [place] | ECON | Unknown | | + + +---------+ + Care Team Providers + +------+ + | Care Cupola Operator Name | Role | Phone | [...] [address] | | | | | [place], | [address] [place] | | | | | [place] [address] | [place] [address] | | | | | [phone] | [phone] | | | | | | | [...]
--- OUTSIDE RECORDS SUMMARY | ~2019-06-08 | XMS | Encounter Summary ---
Demographics + + + | Address | [address] | | | [place] [address] | + + + | Home Phone | | + + + | Preferred Language | Unknown | + + + | Marital Status | Single | + + + | Roman Catholic Affiliation | 1009 | + + + | Race | Unknown | + + + | Ethnic Group | Unknown | + + + Author + + + | Author | [facility] | | | and [place] | + + + | Organization | [facility] | | | and [place] | + + + | Address | Unknown | + + + | Phone | Unavailable | + + + Support + + +---------+ + | Name | Relationship | Address | Phone | + + +---------+ + | Ed Plano | ECON | Unknown | | + + +---------+ + Care Team Providers + +------+ + | Care Early Intervention Specialist Name | Role | Phone | + [...] PHYSIATRY [address] | MD [address] | (Primary Dx) | | | | [place], | [place] | | | | | [place] [address] | [id number] | | | | | [phone] | | | +--------+ + + + [...] of this encounter Progress Notes Isabelle Boateng, Taxi Proprietor - 03/02/2018 10:52 AM PDTCalled to inform Laine Villatoro of lab orders for rheumatology consult. Laine Villatoro would like to have labs done at [facility]. Orders were faxed. Electronically signed by Isabelle Boateng, Taxi Proprietor at 2017 1:22 PM PDTdocumented in this [...]
--- OUTSIDE RECORDS SUMMARY | ~2019-06-08 | XMS | Encounter Summary ---
Demographics + + + | Address | [address] | | | [place] [address] | + + + | Home Phone [...] | [facility] | | | and [place] | + + + | Organization | [facility] | | | and [place] | + + + | Address | Unknown | + + + | Phone | Unavailable | + + + Support + + +---------+ + | Name | Relationship | Address | Phone | + + +---------+ + | Ed [place] | ECON | Unknown | | + + +---------+ + Care Team Providers + +------+ + | Care Worm Farm Laborer Name | Role | Phone | + [...] | | | | [place], | [address] Phone: | | | | | | [place] [address] | [phone] | | | | | | Phone: | Fax: | | | | | | [phone] | [phone] | | | | | | Fax: | | | | | | | [phone] | | + + + + + [...] [address] | tendonitis | | | | [place], | [address] [place] | | | | | [place] [address] | [place] [address] | | | | | [phone] | [phone] | | | | | | | [...]
--- OUTSIDE RECORDS SUMMARY | ~2019-06-08 | XMS | Encounter Summary ---
Demographics + + + | Address | [address] | | | [place] [address] | + + + | Home Phone | | + + + | Preferred Language | Unknown | + + + | Marital Status | Single | + + + | Worship Affiliation | 1009 | + + + | Race | Unknown | + + + | Ethnic Group | Unknown | + + + Author + + + | Author | [facility] | | | and [place] | + + + | Organization | [facility] | | | and [place] | + + + | Address | Unknown | + + + | Phone | Unavailable | + + + Support + + +---------+ + | Name | Relationship | Address | Phone | + + +---------+ + | Ed Nunda | ECON | Unknown | | + + +---------+ + Care Team Providers + +------+ + | Care Foundation Drill Operator Helper Name | Role | Phone | [...] | | | | | acetabular | [address] | [address] | | | | | labrum, | [place], | [address] | | | | | initial | [place] [address] | [place] | | | | | encounter | Phone: | [address] | | | | | | [phone] | Phone: | | | | | | Fax: | [phone] | | | | | | [phone] | Fax: | | | | | | | [phone] | +--------+ + + + + + [...] PHYSIATRY [address] | MD [address] | | | | | [place], | [place], [place] | | | | | [place] [address] | [address] | | | | | [phone] | | | +--------+ + + + [...]
--- OUTSIDE RECORDS SUMMARY | ~2019-06-08 | XMS | Encounter Summary ---
Demographics + + + | Address | [address] | | | [place] [address] | + + + | Home Phone | | + + + | Preferred Language | Unknown | + + + | Marital Status | Single | + + + | Yarsanism Affiliation | 1009 | + + + | Race | Unknown | + + + | Ethnic Group | Unknown | + + + Author + + + | Author | [facility] | | | and [place] | + + + | Organization | [facility] | | | and [place] | + + + | Address | Unknown | + + + | Phone | Unavailable | + + + Support + + +---------+ + | Name | Relationship | Address | Phone | + + +---------+ + | Ed [place] | ECON | Unknown | | + + +---------+ + Care Team Providers + +------+ + | Care Food Products Tester Name | Role | Phone | [...] | | left | [address] | [address] | | | | | acetabular | [address] | [address] | | | | | labrum, | [address] | [address] | | | | | initial | [place], | [place] | | | | | encounter | [place] [address] | [place], [place] | | | | | Tear of left | Phone: | [address] Phone: | | | | | acetabular | [phone] | [phone] | | | | | labrum | Fax: | Fax: | | | | | Procedures | [phone] | [phone] | | | | | HIM 01/10/18 [...] + + | 12/28/ | Office | [facility] | Nathen Dunn, | Tear of left | | 2018 | Visit | PHYSIATRY [address] | PA-C [address] | acetabular labrum, | | | | [place], | [address] [place] | initial encounter | | | | [place] [address] | [place] [address] | (Primary Dx) | | | | [phone] | [phone] | | | | | | | [...] Left hip labral tear. A referral to [place] orthopedic hip specialist has been placed. Dr. Barajas of [facility] ([phone]) Treating Strains and Sprains Strains and sprains [...] above the level of your heart. Medicines Zciy-ifb-vusedcs medicines such as acetaminophen or ibuprofen can [...] limb if it hurts. Date Last Reviewed: 01/31/201519997636-4284 [employer]. [address] [place] [address]. All righ ts reserved. This information is not intended as a substitute for professional medical care. Always follow your healthcare professional's instructions. documented in this encounter Progress Notes Nathen Dunn PA-C - 12/28/2017 8:40 AM PDTFormatting of this note might be different fro m the original. Nathen Dunn PA-C, 12/28/[address] [place] [address], [address] [place] [phone] FAX: PHYSICAL MEDICINE AND REHABILITATION H&P CHIEF [...] has no apparent deficits with short or senior care memory. 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 Unfortunately Laine Villatoro continues to have significant discomfort. It appears to me that the pain is pr imarily coming from left hip labral tear. A referral to orthopedist Dr. Barajas in [place] was placed today. Nortriptyline rx was placed today in case patient has poor response to duloxetine as previo usly reported. 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
--- OUTSIDE RECORDS SUMMARY | ~2019-06-08 | XMS | Encounter Summary ---
Demographics + + + | Address | [address] | | | [place] [address] | + + + | Home Phone | | + + + | Preferred Language | Unknown | + + + | Marital Status | Single | + + + | Shinto Affiliation | 1009 | + + + | Race | Unknown | + + + | Ethnic Group | Unknown | + + + Author + + + | Author | [facility] | | | and [place] | + + + | Organization | [facility] | | | and [place] | + + + | Address | Unknown | + + + | Phone | Unavailable | + + + Support + + +---------+ + | Name | Relationship | Address | Phone | + + +---------+ + | Ed [place] | ECON | Unknown | | + + +---------+ + Care Team Providers + +------+ + | Care Family Consumer Scientist Name | Role | Phone | + [...] | +--------+ + + + + | 04/20/ | Telephone | [facility] [place] | Imelda Hernandes, | Medication Refill | | 2017 | | [address] | Super[address] Rides | | | | | [place], | | | | | | [place] [address] | | | | | | [phone] | | | +--------+ + + + [...]
--- OUTSIDE RECORDS SUMMARY | ~2019-06-08 | XMS | Encounter Summary ---
Demographics + + + | Address | [address] | | | [place] [address] | + + + | Home Phone | | + + + | Preferred Language | Unknown | + + + | Marital Status | Single | + + + | Hindu Affiliation | 1009 | + + + | Race | Unknown | + + + | Ethnic Group | Unknown | + + + Author + + + | Author | [facility] | | | and [place] | + + + | Organization | [facility] | | | and [place] | + + + | Address | Unknown | + + + | Phone | Unavailable | + + + Support + + +---------+ + | Name | Relationship | Address | Phone | + + +---------+ + | Ed [place] | ECON | Unknown | | + + +---------+ + Care Team Providers + +------+ + | Care Warehouse Traffic Supervisor Name | Role | Phone | [...] [address] | | | | | [place], | [address] [place] | | | | | [place] [address] | [place] [address] | | | | | [phone] | [phone] | | | | | | | [...]
--- OUTSIDE RECORDS SUMMARY | ~2019-06-08 | XMS | Encounter Summary ---
Demographics + + + | Address | [address] | | | [place] [address] | + + + | Home Phone [...] + + | Author | [facility] | | | and [place] | + + + | Organization | [facility] | | | and [place] | + + + | Address | Unknown | + + + | Phone | Unavailable | + + + Support + + +---------+ + | Name | Relationship | Address | Phone | + + +---------+ + | Ed [place] | ECON | Unknown | | + + +---------+ + Care Team Providers + +------+ + | Care Cork Mixer Name | Role | Phone | + [...] + + | 12/22/ | Hospital | [facility] | Sanju Brown, | Left hip pain | | 2017 | Encounter | MED CTR XRAY [address] | MD [address] | | | | | [place] | [place], [place] | | | | | [place] [address] | [address] | | | | | [phone] | | | | | | | [...]
--- OUTSIDE RECORDS SUMMARY | ~2019-06-08 | XMS | Encounter Summary ---
Demographics + + + | Address | [address] | | | [place] [address] | + + + | Home Phone | | + + + | Preferred Language | Unknown | + + + | Marital Status | Single | + + + | Quaker Affiliation | 1009 | + + + | Race | Unknown | + + + | Ethnic Group | Unknown | + + + Author + + + | Author | [facility] | | | and [place] | + + + | Organization | [facility] | | | and [place] | + + + | Address | Unknown | + + + | Phone | Unavailable | + + + Support + + +---------+ + | Name | Relationship | Address | Phone | + + +---------+ + | Ed [place] | ECON | Unknown | | + + +---------+ + Care Team Providers + +------+ + | Care Labor And Delivery Registered Nurse Name | Role | Phone | + +------+ + | Rosalba Huerta | PCP | | + +------+ + Encounter Details +--------+ + + + + | Date | Type | Department | Care Team | Description | +--------+ + + + + | 02/09/ | Hospital | [facility] | Nathen Dunn, | Shoulder pain, | | 2018 | Encounter | MED CTR XRAY [address] | PA-C [address] | unspecified | | | | [place] | [address] [place] | chronicity, | | | | [place] [address] | [place] [address] | unspecified | | | | [phone] | [phone] | laterality | | | | | [...]
--- OUTSIDE RECORDS SUMMARY | ~2019-06-08 | XMS | Encounter Summary ---
Demographics + + + | Address | [address] | | | [place] [address] | + + + | Home Phone [...] | Author | [facility] | | | and [place] | + + + | Organization | [facility] | | | and [place] | + + + | Address | Unknown | + + + | Phone | Unavailable | + + + Support + + +---------+ + | Name | Relationship | Address | Phone | + + +---------+ + | Ed [place] | ECON | Unknown | | + + +---------+ + Care Team Providers + +------+ + | Care Jig Boring Machine Operator For Metal Name | Role | Phone | + [...] [address] | | | | | [place], | [address] [place] | | | | | [place] [id number] | [place] [address] | | | | | [phone] | [phone] | | | | | | | [...]
--- OUTSIDE RECORDS SUMMARY | ~2019-06-08 | XMS | Encounter Summary ---
Demographics + + + | Address | [address] | | | [place] [address] | + + + | Home Phone | | + + + | Preferred Language | Unknown | + + + | Marital Status | Single | + + + | Orthodox Affiliation | 1009 | + + + | Race | Unknown | + + + | Ethnic Group | Unknown | + + + Author + + + | Author | [facility] | | | and Gillesana | + + + | Organization | [facility] | | | and Gilles[place] | + + + | Address | Unknown | + + + | Phone | Unavailable | + + + Support + + +---------+ + | Name | Relationship | Address | Phone | + + +---------+ + | Ed [place] | ECON | Unknown | | + + +---------+ + Care Team Providers + +------+ + | Care Refrigerator Crater Name | Role | Phone | + [...] + + | Closed | Specialty | Physical | Diagnoses | Shaun | [facility] | | | Services | Therapy | Shoulder | [facility] | | | Required | | pain, | [address] | PHYSICAL | | | | | unspecified | [address] | [address] | | | | | chronicity, | [address] | [place] | | | | | unspecified | [place], | [place], [place] | | | | | laterality | [place] [address] | [address] | | | | | | Phone: | Phone: | | | | | | [phone] | [phone] | | | | | | Fax: | Fax: | | | | | | [phone] | [phone] | +--------+ + + + + + Diagnostic/Screening (Routine) +--------+--------+ + + + + | Status | Reason | Specialty | Diagnoses / | Referred By | Referred To | | | | | Procedures | Contact | Contact | +--------+--------+ + + + + | Closed | | Radiology | Diagnoses | Shaun, | [facility] | | | | | Shoulder | GIGI Sena | [address] | | | | | pain, | [address] | [place], | | | | | unspecified | [address] | [place] | | | | | chronicity, | [address] | [address] | | | | | unspecified | [place], | Phone: | | | | | laterality | [place] [address] | [phone] | | | | | Procedures | Phone: | Fax: | | | | | MRI Shoulder | [phone] | [phone] | | | | | Left | Fax: | | | | | | Arthrogram w | [phone] | | | | | | Contrast | | | +--------+--------+ + + + + Reason for Visit + + + | Reason | Comments | + + + | Back Pain | lower back pain | + + + | Knee Pain | left knee pain | + + + | Shoulder Pain | left shoulder pain | + + + Service/Procedure (Routine) +--------+--------+ [...] | | | | Rehabilitatio | bursitis | [address] | | | | n | Procedures | [address] | [address] | | | | | [place] | [address] | [place], | | | | | [place] | [place], | [place] [address] | | | | | [place] | [place] [address] | Phone: | | | | | ASPIR&/INJ | Phone: | [phone] | | | | | MAJOR | [phone] | Fax: | | | | | JT/BURSA W/O | Fax: | [phone] | | | | | [place] | [phone] | | | | | | TRIAMCINOLON | | | | | | | E ACET INJ | | | | | | | NOS, 10 MG | | | | | | | [place] OFFICE | | | | | | | OUTPATIENT | | | | | | | VISIT 25 | | | | | | | [...] Description | +--------+---------+ + + + | 11/24/ | Office | [facility] | Nathen Dunn, | Shoulder pain, | | 2018 | Visit | PHYSIATRY [address] | PA-C [address] | unspecified | | | | [place], | [address] [place] | chronicity, | | | | [place] [address] | [place] [address] | unspecified | | | | [phone] | [phone] | laterality (Primary | | | | [...] Instructions Patient Instructions Nathen Dunn PA-C - 11/24/2018 1:00 PM PDTLeft shoulder MRI ordered . Referral to PT placed. We will call with MRI results. Shoulder Arthroscopy The shoulder is your body s most flexible joint. It lets the arm move in almost any direc tion. But this flexibility has a myrick it makes the joint prone to injury. If you have a s houlder problem, a surgical procedure called arthroscopy may be able to help. Your orthopaedic evaluation Your healthcare provider will ask about your symptoms and the history of your shoulder prob marli.He or she will examine yourshoulder and may give youtests, such as an X-ray, CTs can, or MRI. These help your healthcare provider find the cause of your shoulder problem. Arthroscopy: Looking inside your joint Arthroscopy is a procedure that allows your healthcare provider to see and work inside your shoulder joint. Your healthcare provider makes small incisions in your shoulder and inserts a long, thin, lighted instrument, called an arthroscope. During surgery, the arthroscope sends live video images from inside your joint to a screen that your healthcare provider views. Using these images, your healthcare provider can diagno se and treat your shoulder problem. Because arthroscopy uses much smaller incisions than ope n surgery, recovery is often shorter and less painful. You will get anesthesia soyou don't feel the arthroscopy. The anesthesia may be regional, general, or a combination. Risks and possible complications of shoulder arthroscopy Stiffness or ongoing pain in your shoulder Bleeding or blood clots Infection Damage to nerves or blood vessels You may still need open surgery after having arthroscopy. Date Last Reviewed: 02/28/201719998671-8428 [employer]. [address] [place] [address]. All righ ts reserved. This information is not intended as a substitute for professional medical care. Always follow your healthcare professional's instructions. documented in this encounter Progress Notes Nathen Dunn PA-C - 11/24/2018 1:00 PM PDTFormatting of this note might be different fro m the original. Nathen Dunn PA-C [address] [facility] [place], [place] [address] FAX: CHIEF COMPLAINT: Chief Complaint Patient presents with Back Pain lower back pain Knee Pain left knee pain Shoulder Pain left shoulder pain HISTORY OF PRESENT ILLNESS: The patient is a 43 y.o. female being seen today in follow-up for complaints of neck pain. The patient has been seen for this complaint in the past. Previously it was recommended t hat she have a left subacromial bursa injection. She reports that the treatment was not eff ective. Since last visit patient gabapentin was increased to 600 mg 3 times a day. She rep orts this is helping considerably. She is also taking Cymbalta 60 mg once a day. Overall the patient reports that the symptoms are worsening. She rates the pain as 5 on sc clarissa of 1-10. She describes the pain as aching, sharp or stabbing. Her symptoms worsen wit h raising arms above head and shoulder flexion/abduction. Her symptoms improve with rest, i ce, gabapentin, baclofen. The patient does not describe numbness of the arm(s). She does not report weakness of the arm(s). She does not have bowel and bladder dysfunction. She does not have saddle anesthesia. Treatments for these complaints have included injections, medications. Patient's medications, allergies, past medical, surgical, social and family histories were reviewed and updated as appropriate. CURRENT MEDICATIONS: Current Outpatient Medications Medication Sig Dispense Refill baclofen (LIORESAL) 20 mg tablet TAKE 1 TABLET BY MOUTH THREE TIMES DAILY WITH FOOD OR MILK 270 tablet 0 DULoxetine (CYMBALTA) [address] capsule Take 60 mg by mouth Daily. gabapentin (NEURONTIN) 300 mg capsule Take 600 mg by mouth Daily. 1 gabapentin (NEURONTIN) 600 MG tablet Take 600 mg by mouth 3 times daily. ibuprofen (ADVIL,MOTRIN) 800 MG tablet Take 800 mg by mouth every 6 hours as needed for Pain. METFORMIN HCL PO Take 2 tablets by mouth Daily. PATIENT UNSURE OF MG DOSING traZODone (DESYREL) 150 MG tablet Take 300 tablets by mouth Daily. 0 TRULICITY 0.75 MG/0.5ML injection Inject 0.5 mLs as directed Daily. 4 No current facility-administered medications for this visit. ALLERGIES: No Known Allergies Review of Systems Constitutional: Positive for malaise/fatigue. Negative for chills, fever and weight loss. HENT: Negative for congestion, ear discharge, ear pain, hearing loss, nosebleeds and tinnit us. Eyes: Negative for blurred vision, double vision, photophobia and pain. Respiratory: Negative for cough, hemoptysis, sputum production and shortness of breath. Cardiovascular: Negative for chest pain, palpitations, orthopnea and claudication. Gastrointestinal: Positive for abdominal pain. Negative for heartburn, nausea and vomiting. Genitourinary: Negative for dysuria, frequency and urgency. Musculoskeletal: Positive for back pain, joint pain, myalgias and neck pain. Skin: Negative for itching and rash. Neurological: Positive for dizziness. Negative for tingling, tremors, sensory change, speec h change, focal weakness, weakness and headaches. Endo/Heme/Allergies: Negative for environmental allergies and polydipsia. Does not bruise/b leed easily. Psychiatric/Behavioral: Negative for depression, substance abuse and suicidal ideas. PHYSICAL EXAMINATION: Blood pressure 123/82, pulse 76, height 1.702 m (5' 7"), weight 88 kg (194 lb), not current ly . Body mass index is 30.38 kg/m. GENERAL: The patient is well developed and well nourished. She does not appear uncomfortab le when seated. HEENT: Normocephalic and atraumatic. Normal sclerae without icterus. NECK (ANTERIOR): There is no apparent cervical lymphadenopathy or thyromegaly. PULMONARY: The patient is in no acute respiratory distress with unlabored respirations. CARDIOVASCULAR: There is not lower extremity edema. ABDOMEN: Non-distended. SKIN: Limited skin exam shows no significant rashes or lesions. There are not scars in the region. NEUROLOGIC: The patient is awake, alert, and oriented to time, place, person. She follows simple and complex commands. Her speech is fluent. She comprehends speech well. She has no apparent deficits with short or long wall shear operator memory. She has appropriate fund of knowledge Cranial nerves 2-12 appear grossly intact. Coordination: Finger/Nose and heel/rolle is intact Sensory exam with monofilament does not show diminished sensation to light touch in the up per and lower extremities. REFLEX: RIGHT LEFT BICEPS 2+ 2+ BRACHIORADIALIS 2+ 2+ TRICEPS 2+ 2+ PATELLAR 2+ 2+ ACHILLES 2+ 2+ ROSA'S ABSENT ABSENT PLANTAR DOWNGOING DOWNGOING MUSCULOSKELETAL : The cervical spine exam shows there is no tenderness over the C-3, C-4, C -5, C-6 and C-7 region. Range of motion is not limited. Rotation and extension does not ca use symptoms to radiate into the extremities on both sides. Flexion and extension of the n efrem does not cause severe discomfort. No tenderness in the midline of the thoracic or lumbar spine. There is no major palpable d eformity of the spine. Shoulder examination shows well preserved range of motion with external rotation, internal rotation and abduction. Impingement testing was Positive on the LEFT only. There was no t enderness over the bicipital groove or over the LEFT AC joint. Speed's test was Positive. E mpty can test was Positive. Strength testing, including strength testing of the infraspin atus, supraspinatus and subscapularis, in bilateral upper extremities showed 5/5 strength wi th no focal weakness. RADIOGRAPHIC REVIEW: The patient's imaging was reviewed in detail with the patient today during the visit. 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 ASSESSMENT: Encounter Diagnosis Name Primary? Shoulder pain, unspecified chronicity, unspecified laterality Yes PLAN: 1) Today we discussed the patient's differential diagnosis with the likely primary issue be ing AC joint arthritis versus rotator cuff strain/injury. Patient's description of symptoms, physical exam, and imaging suggest this diagnosis at this time. 2) I counseled patient on treatment options which included conservative self management usi ng OTC NSAIDs/Ice and heat packs, physical therapy, prescription medications, epidural stero id injection, as well as possible surgical intervention. 3) Imaging: Reviewed above in radiology review section MRI was ordered to assess the shoulder joint for rotator cuff pathology. 4) patient was referred to PT for shoulder pain. 5) We will call patient with shoulder MRI results. 6) If current treatment plan is insufficient for symptom relief we could try AC joint injec tion versus intra-articular shoulder injection as the next therapy option. 7) It is important to note that during subacromial bursa injection patient reports a poor r eaction to the steroid which made her have flu-like symptoms for approximately 1 week. Thus she is apprehensive about additional steroid injection procedures. I spent 30 minutes in visit with Laine Villatoro today with the majority of time spent couns elling the patient on her diagnosis, options for her care, and coordinating her care. ELECTRONICALLY SIGNED BY: Nathen Dunn PA-C, 11/24/2018 13:26 documented in this en counter Plan of Treatment + + +--------+ + + | Name | Type | Priori | Associated Diagnoses | Order Schedule | | | | ty | | | + + +--------+ + + | [facility] | Outpatient | Routin | Shoulder pain, | Ordered: 11/24/2018 | | Physical therapy | Referral | e | unspecified | | | | | | chronicity, | | | | | | unspecified | | | | | | laterality | | + + +--------+ + + documented as of this encounter Results MRI Shoulder Left Arthrogram [...] + + | Performing | Address | City[facility] | Phone Number | | Organization | | | | + +---------+ + + | [facility] | | | | + +---------+ + + [place] Shoulder Injection Left for MRI or [...] to MRI. Dictated and Signed by: Igor Walker | | MD Faustino Electronically signed: 01/06/2019 [...] followed by a 1 cc injection of [id number] confirmed | | intra-articular positioning of the [...]
--- OUTSIDE RECORDS SUMMARY | ~2019-06-08 | XMS | Encounter Summary ---
Demographics + + + | Address | [address] | | | [place] [address] | + + + | Home Phone | | + + + | Preferred Language | Unknown | + + + | Marital Status | Single | + + + | Mu-Ism Affiliation | 1009 | + + + | Race | Unknown | + + + | Ethnic Group | Unknown | + + + Author + + + | Author | [facility] | | | and [place]illes[place] | + + + | Organization | [facility] | | | and [place] | + + + | Address | Unknown | + + + | Phone | Unavailable | + + + Support + + +---------+ + | Name | Relationship | Address | Phone | + + +---------+ + | Ed [place] | ECON | Unknown | | + + +---------+ + Care Team Providers + +------+ + | Care Chromosomal Disorders Counselor Name | Role | Phone | + +------+ + | Rosalba Huerta | PCP | | + +------+ + Encounter Details +--------+---------+ + + + | Date | Type | Department | Care Team | Description | +--------+---------+ + + + | 03/08/ | Office | [facility] | Jeremy Goodwin | Mass of right wrist | | 2018 | Visit | ORTHOPEDIC SURGERY | [address] | (Primary Dx) | | | | [address] [facility] | [address] | | | | | [place] | [place] [address] | | | | | [address] | [phone] | | | | | [phone] | | | +--------+---------+ + + + [...] documented as of this encounter Progress Notes Jeremy Goodwin PA-C - 03/08/2018 8:30 AM PDT Name:Laine Villatoro Todays Date: 03/08/2018 Age: 42 y.o. PCP: ANNMARIE Christianson No chief complaint on file. SUBJECTIVE: Returns today for follow-up of right wrist ganglion cyst/mass. She notes that he continues to be problematic with increased activities and certain ranges of motion to include flexion and extension of the wrist. She notes insurance did not approve surgery to which she is qu ite disappointed. She notes that the mass can increase in size. She notes that did recentl y decrease in size when she received hip injection for her hip. Current level pain rated at 9 chronically OBJECTIVE: Poorly organized mass at the dorsal aspect of her right wrist. There is no singular cystic structure. This is a poorly organized mass that is at the dorsal aspect of her wrist. It is covering the area of the distal radial styloid scaphoid and lunate area. Once again it h as poor borders and I do question if it is truly a ganglion cyst. Imaging/Studies: No studies to review at this time. There were no vitals filed for this visit. ASSESSMENT/PLAN: 1.Right wrist dorsal wrist mass A. unfortunately patient's insurance did not approve surgical intervention for this mass e xcision. I previously noted this was a ganglion-like cyst after reevaluation today I do que stion if it is truly a ganglion cyst or a soft tissue mass/tumor of unknown pathology. She notes that it does become painful at times with increased use and moving the wrist back and forth. Recommend that she first contact her insurance company for consideration of surgery and recommendations on how to move forward if applicable. She may have to switch insurance companies. Recommended that she continue to use the wrist and hand as tolerated. B. Patient is advised that if they have any questions, comments or concerns to contact our office. Electronically signed by: Jeremy Goodwin PA-C 03/08/2018 9:25 This note was dictated using the [employer] voice recognition system. Minor errors in grammar may have occurred. documented in t his encounter Plan of Treatment Not on filedocumented as of this encounter Visit Diagnoses + + | Diagnosis | + + | Mass of right wrist - Primary | + + documented in this encounter"
--- OUTSIDE RECORDS SUMMARY | ~2019-06-08 | XMS | Encounter Summary ---
Demographics + + + | Address | [address] | | | [place] [address] | + + + | Home Phone | | + + + | Preferred Language | Unknown | + + + | Marital Status | Single | + + + | Christianity Affiliation | 1009 | + + + | Race | Unknown | + + + | Ethnic Group | Unknown | + + + Author + + + | Author | [facility] [place] | | | and Gilles[place] | + + + | Organization | [facility] [place] | | | and [place] | + + + | Address | Unknown | + + + | Phone | Unavailable | + + + Support + + +---------+ + | Name | Relationship | Address | Phone | + + +---------+ + | Ed [place] | ECON | Unknown | | + + +---------+ + Care Team Providers + +------+ + | Care Rand Sewer Name | Role | Phone | + [...] (Shoulder MRI ) | | | | [address], | [address] [place] | | | | | [place] [address] | [place] [address] | | | | | [phone] | [phone] | | | | | | | [...]
--- OUTSIDE RECORDS SUMMARY | ~2019-06-08 | XMS | Encounter Summary ---
Demographics + + + | Address | [address] | | | [place] [address] | + + + | Home Phone [...] + | Author | [facility] [place] | | | and Gilles[place] | + + + | Organization | [facility] [place] | | | and [place] | + + + | Address | Unknown | + + + | Phone | Unavailable | + + + Support + + +---------+ + | Name | Relationship | Address | Phone | + + +---------+ + | Ed [place] | ECON | Unknown | | + + +---------+ + Care Team Providers + +------+ + | Care Evaporator Repairer Name | Role | Phone | + [...] [address] | | | | | [place], | [address] [place] | | | | | [place] [address] | [place] [address] | | | | | [phone] | [phone] | | | | | | | [...]
--- OUTSIDE RECORDS SUMMARY | ~2019-06-08 | XMS | Clinical Summary ---
Demographics + + + | Address | [address] | | | [place] [address] | + + + | Home Phone | | + + + | Preferred Language | Unknown | + + + | Marital Status | Single | + + + | Rastafarian Affiliation | Unknown | + + + [...] | + + +---------+ + | Ed [place] | ECON | Unknown | | + + +---------+ + Care Team Providers + +------+ + | Care Accounts Payable Specialist Name | Role | Phone | + +------+ + | Irene Cortes MD | PCP | | + +------+ + Source Comments VANNESSA is fully live on both [facility] Ambulatory and [facility] InPatient.[facility] Allergies Not on File Medications Not on [...] | 2020 | Visit | | [place] [address] | | | | | | [address] | | | | | | [place], [place] | | | | | | [address] | | | | | | [phone] | | | | | | | [...] BLUE | BCBS | [phone] | | [phone] | [address] | PPO | | SHIELD | OUT OF | [phone] | [phone] | [address] | | | | STATE | | esent | | [place], | | | | | | | | [place] | | | | | | | | [address] | | + +--------+ +--------+ + +------+ [...] | 1976 | [phone] | [place] [address] | | | nolberto | | | 4 (Home) | | + +--------+ +--------+ + +"
--- OUTSIDE RECORDS SUMMARY | ~2019-06-08 | XMS | Encounter Summary ---
Demographics + + + | Address | [address] | | | [place] [address] | + + + | Home Phone | | + + + | Preferred Language | Unknown | + + + | Marital Status | Single | + + + | Sikh Affiliation | 1009 | + + + | Race | Unknown | + + + | Ethnic Group | Unknown | + + + Author + + + | Author | [facility] [place] | | | and Gilles[place] | + + + | Organization | [facility] [place] | | | and [place] | + + + | Address | Unknown | + + + | Phone | Unavailable | + + + Support + + +---------+ + | Name | Relationship | Address | Phone | + + +---------+ + | Ed [place] | ECON | Unknown | | + + +---------+ + Care Team Providers + +------+ + | Care Curtain Hemmer Automatic Name | Role | Phone | + +------+ + | Rsoalba Huerta | PCP | | + +------+ + Encounter Details +--------+---------+ + + + | Date | Type | Department | Care Team | Description | +--------+---------+ + + + | 03/08/ | Office | [facility] | Jeremy Goodwin | Mass of right wrist | | 2018 | Visit | ORTHOPEDIC SURGERY | [address] | (Primary Dx) | | | | [address] [facility] | [address] | | | | | [place] | [place] [address] | | | | | [address] | [phone] | | | | | [phone] | | | +--------+---------+ + + + [...] 9:25 This note was dictated using the [employer] voice recognition system. Minor errors in grammar may have occurred. documented in t his encounter Plan of Treatment Not on filedocumented as of this encounter Visit Diagnoses + + | Diagnosis | + + | Mass of right wrist - Primary | + + documented in this encounter"
--- OUTSIDE RECORDS SUMMARY | ~2019-06-08 | XMS | Encounter Summary ---
Demographics + + + | Address | [address] | | | [place] [address] | + + + | Home Phone | | + + + | Preferred Language | Unknown | + + + | Marital Status | Single | + + + | Catholic Affiliation | 1009 | + + + | Race | Unknown | + + + | Ethnic Group | Unknown | + + + Author + + + | Author | [facility] [place] | | | and [place]illes[place] | + + + | Organization | [facility] [place] | | | and [place] | + + + | Address | Unknown | + + + | Phone | Unavailable | + + + Support + + +---------+ + | Name | Relationship | Address | Phone | + + +---------+ + | Ed [place] | ECON | Unknown | | + + +---------+ + Care Team Providers + +------+ + | Care Inspector Floor Sub Assembly Name | Role | Phone | + [...] bursitis of | Pamela, | [address] | | | | n | left | PA-C [address] | [place], | | | | | shoulder | [address] | [place] | | | | | joint | [place] | [address] | | | | | Procedures | [address] | Phone: | | | | | [place] | Phone: | [phone] | | | | | [place] | [phone] | Fax: | | | | | [place] | Fax: | [phone] | | | | | ASPIR&/INJ | [phone] | | | | | | MAJOR | | | | | | | JT/BURSA W/O | | | | | | | [place] | | | | | | | TRIAMCINOLON | | | | | | | E ACET INJ | | | | | | | NOS, 10 MG | | | | | | | [place] LIDOCAINE | | | | | | | INJECTION, | | | | | | | 10 MG [place] | | | | | | | [...] + + | 04/25/ | Office | [facility] | Nathen Dunn, | Subacromial bursitis | | 2017 | Visit | PHYSIATRY [address] | PA-C [address] | of left shoulder | | | | [place], | [address] [place] | joint (Primary Dx); | | | | [place] [address] | [place] [address] | Yeast infection of | | | | [phone] | [phone] | the vagina | | | | [...]
--- OUTSIDE RECORDS SUMMARY | ~2019-06-08 | XMS | Encounter Summary ---
Demographics + + + | Address | [address] | | | [place] [address] | + + + | Home Phone [...] + + + | Author | [facility] | | | and Gillesana | + + + | Organization | [facility] [place] | | | and Gillesana | + + + | Address | Unknown | + + + | Phone | Unavailable | + + + Support + + +---------+ + | Name | Relationship | Address | Phone | + + +---------+ + | Ed [place] | ECON | Unknown | | + + +---------+ + Care Team Providers + +------+ + | Care Peanut Shaker Name | Role | Phone | + [...] | Sanju Otoole MD | [address] | | | | | pain | [address] | [place], | | | | | Procedures | [address] | [place] | | | | | MRI Hip Left | [place], | [address] | | | | | Arthrogram | [place] [address] | Phone: | | | | | w Contrast | Phone: | [phone] | | | | | [place] MRI, | [phone] | Fax: | | | | | JOINT OF LEG | Fax: | [phone] | | | | | W/CONTRAST | [phone] | | +--------+--------+ + + + + [...] | | | | finger of | [address] | [place] | | | | | right hand | [place], | [place], [place] | | | | | Procedures | [place] [address] | [address] Phone: | | | | | 12/07 | Phone: | [phone] | | | | | Pending-MODA | [phone] | Fax: | | | | | IPA | Fax: | [phone] | | | | | response | [phone] | | +--------+ + + + + [...] | | | | | joint | [address] | [address] | | | | | Joint | [place], | [address] | | | | | stiffness | [place] [address] | [place] | | | | | Procedures | Phone: | [phone] | | | | | [place] OFFICE | [phone] | Phone: | | | | | OUTPATIENT | Fax: | [phone] | | | | | VISIT 25 | [phone] | Fax: | | | | | MINUTES ref | | [phone] | | | | | status | [...] | | | Rehabilitatio | muscle, | HOUSEKEEPING/LAUNDRY SUPERVISOR [address] | | | | n | fascia and | [address] | [place], | | | | | tendon of | [place], | [place] [address] | | | | | pelvis, | [place] [address] | Phone: | | | | | subsequent | Phone: | [phone] | | | | | encounter | [phone] | Fax: | | | | | | Fax: | [phone] | | | | | | [phone] | | +--------+--------+ + + + + Encounter Details +--------+---------+ + + + | Date | Type | Department | Care Team | Description | +--------+---------+ + + + | 11/15/ | Office | [facility] [place] | Sanju Brown, | Left hip pain | | 2018 | Visit | PHYSIATRY [address] | MD [address] | (Primary Dx); | | | | [address] [place], | [place], [place] | Ganglion cyst of | | | | [place] [address] | [address] | finger of right | | | | [phone] | | hand; Fibromyalgia; | | | [...] to sched ule A referral to a division head will be placed today, their office will call you to schedule Start taking new medication cymbalta 30mg at night. documented in this encounter Progress Notes Sanju Brown MD - 11/15/2017 1:50 PM PDTFormatting of this note might be different fro m the original. Sanju Brown MD [address] [place] [address], [address] [place], [place] [id number] FAX: PHYSICAL MEDICINE AND REHABILITATION H&P CHIEF [...] Extension 5 5 Finger Abduction 5 5 Water Pumping Station Engineer Strength 5 5 Hip Flexion 5 5 [...]
--- OUTSIDE RECORDS SUMMARY | ~2019-06-08 | XMS | Encounter Summary ---
Demographics + + + | Address | [address] | | | [place] [address] | + + + | Home Phone | | + + + | Preferred Language | Unknown | + + + | Marital Status | Single | + + + | Samaritan Affiliation | 1009 | + + + | Race | Unknown | + + + | Ethnic Group | Unknown | + + + Author + + + | Author | [facility] [place] | | | and Gillesana | + + + | Organization | [facility] [place] | | | and Gillesana | + + + | Address | Unknown | + + + | Phone | Unavailable | + + + Support + + +---------+ + | Name | Relationship | Address | Phone | + + +---------+ + | Ed [place] | ECON | Unknown | | + + +---------+ + Care Team Providers + +------+ + | Care Biodiesel Production Associate Name | Role | Phone | [...] 2017 | Changes | ORTHOPEDIC SURGERY | Drilling Field Operator | | | | | [place] | | | | | | [place] | | | | | | [address] | | | | | | [phone] | | | +--------+ + + + [...]
--- OUTSIDE RECORDS SUMMARY | ~2019-06-08 | XMS | Encounter Summary ---
Demographics + + + | Address | [address] | | | [place] [address] | + + + | Home Phone [...] | Author | [facility] [place] | | | and Gillesana | + + + | Organization | [facility] [place] | | | and Gillesana | + + + | Address | Unknown | + + + | Phone | Unavailable | + + + Support + + +---------+ + | Name | Relationship | Address | Phone | + + +---------+ + | Ed [place] | ECON | Unknown | | + + +---------+ + Care Team Providers + +------+ + | Care Warp Trucker Name | Role | Phone | + +------+ + | Irene Cortes MD | PCP | | + +------+ + Encounter Details +--------+ + + + + | Date | Type | Department | Care Team | Description | +--------+ + + + + | 01/06/ | Hospital | [facility] | Nathen Dunn, | Shoulder pain, | | 2019 | Encounter | MED CTR XRAY [address] | PA-C [address] | unspecified | | | | [place] | [address] [place] | chronicity, | | | | [place] [address] | [place] [address] | unspecified | | | | [phone] | [phone] | laterality | | | | | [...] followed by a 1 cc injection of [id number] confirmed | | intra-articular positioning of the [...]
--- OUTSIDE RECORDS SUMMARY | ~2019-06-08 | XMS | Encounter Summary ---
Demographics + + + | Address | [address] | | | [place] [address] | + + + | Home Phone [...] | [facility] [place] | | | and Gillesana | + + + | Organization | [facility] [place] | | | and Gillesana | + + + | Address | Unknown | + + + | Phone | Unavailable | + + + Support + + +---------+ + | Name | Relationship | Address | Phone | + + +---------+ + | Ed [place] | ECON | Unknown | | + + +---------+ + Care Team Providers + +------+ + | Care Tavern Keeper Name | Role | Phone | + [...] + + | 02/09/ | Office | [facility] | Shaun, Nathen, | Shoulder pain, | | 2018 | Visit | PHYSIATRY [address] | PA-C [address] | unspecified | | | | [place] [facility], | [address] [place] | chronicity, | | | | [place] [address] | [place] [address] | unspecified | | | | [phone] | [phone] | laterality (Primary | | | | [...] called adhesive capsulitis. The shoulder is a aqsh-esj-lqozpk joint. The ball on the upper arm [...] as much as possible. You may use gbml-jff-jtfqlgi pain medicine to control pain, unless another [...] after using pain medicines Date Last Reviewed: 04/23/201519999335-9822 [employer]. [address] [place] [address], [place] [address]. All righ ts reserved. This information is not intended as a substitute for professional medical care. Always follow your healthcare professional's instructions. documented in this encounter Progress Notes Nathen Dunn PA-C - 02/09/2018 8:40 AM PDTFormatting of this note might be different fro m the original. Nathen Dunn PA-C, 02/09/18 [address] [facility], [address] [place] [address] FAX: PHYSICAL MEDICINE AND REHABILITATION H&P CHIEF COMPLAINT: Chief Complaint Patient presents with Follow-up Hip Pain HISTORY OF PRESENT ILLNESS: Laine Villatoro s a 42 y.o. female being seen today for follow up on Hip pain which she will be seeing a specialist in [place] next week for a surgi juno consult for torn labrum. Today she reports with diffuse joint pains. 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 She also has bilateral shoulder joint pain [...] her right hand. She reports living i [facility] where she had diffuse rashes on her [...] has no apparent deficits with short or chcf memory. 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 Unfortunately Laine Villatoro continues to have significant [...] tear she is seeing hip specialist in [place] on 02/14/18. In regard to right wrist she is seeing an orthopedist in [place], her wrist surgery request was recently denied [...]
--- OUTSIDE RECORDS SUMMARY | ~2019-06-08 | XMS | Encounter Summary ---
Demographics + + + | Address | [address] | | | [place] [address] | + + + | Home Phone | | + + + | Preferred Language | Unknown | + + + | Marital Status | Single | + + + | Confucianism Affiliation | 1009 | + + + | Race | Unknown | + + + | Ethnic Group | Unknown | + + + Author + + + | Author | [facility] [place] | | | and Gillesana | + + + | Organization | [facility] [place] | | | and Gillesana | + + + | Address | Unknown | + + + | Phone | Unavailable | + + + Support + + +---------+ + | Name | Relationship | Address | Phone | + + +---------+ + | Ed [place] | ECON | Unknown | | + + +---------+ + Care Team Providers + +------+ + | Care Ammonia Nitrate Operator Name | Role | Phone | [...] | | | | laterality | [place] [address] | [address] | | | | | | Phone: | Phone: | | | | | | [phone] | [phone] | | | | | | Fax: | Fax: | | | | | | [phone] | [phone] | +--------+ + + + + + [...] Shoulder | GIGI Sena | [address] | | | | | pain, | [address] | [place], | | | | | unspecified | [address] | [place] | | | | | chronicity, | [address] | [address] | | | | | unspecified | [place], | Phone: | | | | | laterality | [place] [address] | [phone] | | | | | Procedures | Phone: | Fax: | | | | | MRI Shoulder | [phone] | [phone] | | | | | Left | Fax: | | | | | | Arthrogram w | [phone] | | | | | | Contrast [...] [address] | | | | | [place] | [address] | [place], | | | | | ARTHROCENTES | [place], | [place] [address] | | | | | IS | [place] [address] | Phone: | | | | | ASPIR&/INJ | Phone: | [phone] | | | | | MAJOR | [phone] | Fax: | | | | | JT/BURSA W/O | Fax: | [phone] | | | | | [place] | [phone] | | | | | | TRIAMCINOLON | | | | | | | E ACET INJ | | | | | | | NOS, 10 MG | | | | | | | [place] OFFICE | | | | | | [...] + + | 11/24/ | Office | [facility] | Nathen Dunn, | Shoulder pain, | | 2018 | Visit | PHYSIATRY [address] | PA-C [address] | unspecified | | | | [place], | [address] [place] | chronicity, | | | | [place] [address] | [place] [address] | unspecified | | | | [phone] | [phone] | laterality (Primary | | | | [...] surgery after having arthroscopy. Date Last Reviewed: 02/28/201719990541-4581 [employer]. [address] [place] [address]. All righ ts reserved. This information is not intended as a substitute for professional medical care. Always follow your healthcare professional's instructions. documented in this encounter Progress Notes Nathen Dunn PA-C - 11/24/2018 1:00 PM PDTFormatting of this note might be different fro m the original. Nathen Dunn PA-C [address] [place], [place] [address] FAX: CHIEF COMPLAINT: Chief Complaint Patient presents [...] has no apparent deficits with short or joint terminal attack controller memory. She has appropriate fund of knowledge [...] + + | Performing | Address | [facility] | Phone Number | | Organization | [...] followed by a 1 cc injection of [id number] confirmed | | intra-articular positioning of the [...]
--- OUTSIDE RECORDS SUMMARY | ~2019-06-08 | XMS | Encounter Summary ---
Demographics + + + | Address | [address] | | | [place] [address] | + + + | Home Phone [...] | Author | [facility] [place] | | | and Gillesana | + + + | Organization | [facility] [place] | | | and Gillesana | + + + | Address | Unknown | + + + | Phone | Unavailable | + + + Support + + +---------+ + | Name | Relationship | Address | Phone | + + +---------+ + | Ed [place] | ECON | Unknown | | + + +---------+ + Care Team Providers + +------+ + | Care Accident Report Clerk Name | Role | Phone | + +------+ + | Rosalba Huerta | PCP | | + +------+ + Encounter Details +--------+ + + + + | Date | Type | Department | Care Team | Description | +--------+ + + + + | 02/21/ | Ancillary | [facility] | Raul Monaco, | | | 2018 | Procedure | SURGICAL | [address] | | | | | SPECIALITIES | [address] | | | | | ORTHOPEDICS CHILD DEVELOPMENT DIRECTOR | [place], [place] | | | | | [address] | [address] | | | | | [address] [place] | | | | | | [place] | | | | | | [address] | | | | | | [phone] | | | +--------+ + + + [...] | | Indications: Left hip pain | [facility] - | | | IM[facility]ING - [facility] [...] Leonides Almanza, [address] | [place] [address] | [phone] | | - IMAGING - [facility] | Raman | | | + + + + + documented in this encounter Visit Diagnoses Not on filedocumented in this encounter"
--- OUTSIDE RECORDS SUMMARY | ~2019-06-08 | XMS | Clinical Summary ---
Demographics + + + | Address | [address] | | | [place] [address] | + + + | Home Phone [...] Author | [facility] (Historical as of | | | 01-14-19) | + + + | Organization | [facility] (Historical as of | | | 01-14-19) | + + + | Address | Unknown | + + + | Phone | Unavailable | + + + Support + + + + + | Name | Relationship | Address | Phone | + + + + + | [place],Freddy | ECON | [address] | | | | | [facility] [place] | | | | | [address] | | + + + + + Care Team Providers + +------+ + | Care Map Clerk Name | Role | Phone | [...] +------+-------+ + | MEDICAID | EASTER | [id number] | | | [address] | | | N | | | | [place] | | | [place] | | | | [address] | | | CONSULTING SOLUTION MANAGER | | | | | + +--------+ [...] | | al/Fam | | 1976 | [phone] | [place] [address] | | | nolberto | | | [address]: | | | | | | | | | | | | | | [phone] | | | | | | | 7237 | | + +--------+ +--------+ + +
--- OUTSIDE RECORDS SUMMARY | ~2019-06-08 | XMS | Encounter Summary ---
Demographics + + + | Address | [address] | | | [place] [address] | + + + | Home Phone [...] + + + | Author | [facility] [place] | | | and Gillesana | + + + | Organization | [facility] [place] | | | and [place] | + + + | Address | Unknown | + + + | Phone | Unavailable | + + + Support + + +---------+ + | Name | Relationship | Address | Phone | + + +---------+ + | Ed [place] | ECON | Unknown | | + + +---------+ + Care Team Providers + +------+ + | Care Corporate Licensed Broker Name | Role | Phone | + +------+ + | Rosalba Huerta | PCP | | + +------+ + Encounter Details +--------+ + + + + | Date | Type | Department | Care Team | Description | +--------+ + + + + | 02/09/ | Hospital | [facility] | Nathen Dunn, | Shoulder pain, | | 2018 | Encounter | MED CTR XRAY [address] | PA-C [address] | unspecified | | | | [place] | [address] [place] | chronicity, | | | | [place] [address] | [place] [address] | unspecified | | | | [phone] | [phone] | laterality | | | | | [...]
--- OUTSIDE RECORDS SUMMARY | ~2019-06-08 | XMS | Encounter Summary ---
Demographics + + + | Address | [address] | | | [place] [address] | + + + | Home Phone | | + + + | Preferred Language | Unknown | + + + | Marital Status | Single | + + + | Baptist Affiliation | 1009 | + + + | Race | Unknown | + + + | Ethnic Group | Unknown | + + + Author + + + | Author | [facility] [place] | | | and Gillesana | + + + | Organization | [facility] [place] | | | and [place]illes[place] | + + + | Address | Unknown | + + + | Phone | Unavailable | + + + Support + + +---------+ + | Name | Relationship | Address | Phone | + + +---------+ + | Ed [place] | ECON | Unknown | | + + +---------+ + Care Team Providers + +------+ + | Care Software Test Engineer Name | Role | Phone | [...] | joint | [place], | [place] [address] | | | | | Procedures | [place] [address] | Phone: | | | | | [place] | Phone: | [phone] | | | | | ARTHROCENTES | [phone] | Fax: | | | | | [place] | Fax: | [phone] | | | | | ASPIR&/INJ | [phone] | | | | | | MAJOR | | | | | | | JT/BURSA W/O | | | | | | | [place] | | | | | | | [...] of left shoulder | | | | [place], | [address] [place] | joint | | | | [place] [address] | [place] [address] | | | | | [phone] | [phone] | | | | | | | [...] any wrap or splint wet. You may gihktyko-fsf-oscgjse pain medicine to treat pain and inflammation, [...] 24 to 48 hours Date Last Reviewed: 04/20/201519996648-0348 [employer]. [address] [place] [address]. All righ ts reserved. This information is not intended as a substitute for professional medical care. Always follow your healthcare professional's instructions. documented in this encounter Progress Notes Nathen Dunn PA-C - 03/08/2018 10:00 AM PDTFormatting [...]
--- OUTSIDE RECORDS SUMMARY | ~2019-06-08 | XMS | Encounter Summary ---
Demographics + + + | Address | [address] | | | [place] [address] | + + + | Home Phone | | + + + | Preferred Language | Unknown | + + + | Marital Status | Single | + + + | Baptism Affiliation | 1009 | + + + | Race | Unknown | + + + | Ethnic Group | Unknown | + + + Author + + + | Author | [facility] [place] | | | and Gillesana | + + + | Organization | [facility] [place] | | | and [place] | + + + | Address | Unknown | + + + | Phone | Unavailable | + + + Support + + +---------+ + | Name | Relationship | Address | Phone | + + +---------+ + | Ed [place] | ECON | Unknown | | + + +---------+ + Care Team Providers + +------+ + | Care Machine Packager Name | Role | Phone | + [...] [address] | Infection/Mouth | | | | [place], | [address] [place] | Issues) | | | | [place] [address] | [place] [address] | | | | | [phone] | [phone] | | | | | | | [...]
--- OUTSIDE RECORDS SUMMARY | ~2019-06-08 | XMS | Encounter Summary ---
Demographics + + + | Address | [address] | | | [place] [address] | + + + | Home Phone | | + + + | Preferred Language | Unknown | + + + | Marital Status | Single | + + + | Denominational Affiliation | 1009 | + + + | Race | Unknown | + + + | Ethnic Group | Unknown | + + + Author + + + | Author | [facility] [place] | | | and Gillesana | + + + | Organization | [facility] [place] | | | and [place]illes[place] | + + + | Address | Unknown | + + + | Phone | Unavailable | + + + Support + + +---------+ + | Name | Relationship | Address | Phone | + + +---------+ + | Ed [place] | ECON | Unknown | | + + +---------+ + Care Team Providers + +------+ + | Care Chemical Sales Representative Name | Role | Phone | + [...] | 03/14/ | Telephone | [facility] | Nathen Dunn, | Medication Question | | 2019 | | PHYSIATRY [address] | PA-C [address] | | | | | [place], | [address] [place] | | | | | [place] [address] | [place] [address] | | | | | [phone] | [phone] | | | | | | | [...]
--- OUTSIDE RECORDS SUMMARY | ~2019-06-08 | XMS | Encounter Summary ---
Demographics + + + | Address | [address] | | | [place] [address] | + + + | Home Phone | | + + + | Preferred Language | Unknown | + + + | Marital Status | Single | + + + | Tenriism Affiliation | 1009 | + + + | Race | Unknown | + + + | Ethnic Group | Unknown | + + + Author + + + | Author | [facility] [place] | | | and Gillesana | + + + | Organization | [facility] [place] | | | and [place]illes[place] | + + + | Address | Unknown | + + + | Phone | Unavailable | + + + Support + + +---------+ + | Name | Relationship | Address | Phone | + + +---------+ + | Ed [place] | ECON | Unknown | | + + +---------+ + Care Team Providers + +------+ + | Care Water Plant Maintenance Mechanic Name | Role | Phone | + [...] [address] | | | | | [place], | [address] [place] | | | | | [place] [address] | [place] [address] | | | | | [phone] | [phone] | | | | | | | [...]
--- OUTSIDE RECORDS SUMMARY | ~2019-06-08 | XMS | Encounter Summary ---
Demographics + + + | Address | [address] | | | [place] [address] | + + + | Home Phone | | + + + | Preferred Language | Unknown | + + + | Marital Status | Single | + + + | Protestant Affiliation | 1009 | + + + | Race | Unknown | + + + | Ethnic Group | Unknown | + + + Author + + + | Author | [facility] [place] | | | and Gillesana | + + + | Organization | [facility] [place] | | | and Gillesana | + + + | Address | Unknown | + + + | Phone | Unavailable | + + + Support + + +---------+ + | Name | Relationship | Address | Phone | + + +---------+ + | Ed [place] | ECON | Unknown | | + + +---------+ + Care Team Providers + +------+ + | Care Front Counter Clerk Name | Role | Phone | [...] 2017 | | PHYSIATRY [address] | Fitter Mechanic | | | | | [place], | | | | | | [place] [address] | | | | | | [phone] | | | +--------+ + + + [...]
[~2019-06-08 12:00] MED LIST changes: +BACLOFEN10 MG PO; +METHYLPREDNISOLO4 M1 PO
[2019-06-08] MEDS ORDERED: JARDIANCE10 MG PO (12:18)
[2019-06-08] MEDS ORDERED: IBUPROFEN800 MG PO (12:18)
[2019-06-08] MEDS ORDERED: TRAZODONE HCL150 MG PO (12:19)
[2019-06-08] MEDS ORDERED: GABAPENTIN600 MG PO (12:19)
[2019-06-08] MEDS ORDERED: ONDANSETRON ODT8 MG PO (15:28)
== END 2019-06-08 15:34 | disposition home or self-care (01) ==
LOC: ED 12:00
DX: E11.65 Type 2 diabetes mellitus with hyperglycemia (principal); F17.200 Nicotine dependence, unspecified, uncomplicated; Z79.899 Other long term (current) drug therapy
CPT/HCPCS: 80053; 81001; 82010; 82800; 83690; 85025; 96361; 96374; 99284-25; J2405; J7030

== ENCOUNTER 2019-07-18 08:50 | Emergency (ER) | payer BC ==
[~2019-07-18] VITALS: Ht 170.2 cm; Wt 90.7 kg
[~2019-07-18 08:50] MED LIST changes: +GABAPENTIN600 MG PO; +IBUPROFEN800 MG PO; +JARDIANCE10 MG PO; +ONDANSETRON ODT8 MG PO; +TRAZODONE HCL150 MG PO
--- OUTSIDE RECORDS SUMMARY | 2019-07-18 08:54 | XMS ---
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 Guidelines Source: Vaughn [facility] [place] Guidelines Date: 06/09/2019 Care Coordination: Mental health services provided by Vaughn Burton.\T\nbsp; Please contact Vaughn Burton with mental health concerns.\T\nbsp; [facility] [phone]\T\ nbsp; [place]: [phone]. E.D. VISIT COUNT (12 MO.) 2 [facility] TOTAL 2 NOTE: Visits indicate total known visits. ED/UCC VISIT TRACKING (12 MO.) 07/18/2019 08:51 [facility] [place] TYPE: Emergency COMPLAINT: - VOMITING, FEVER 06/08/2019 12:02 [facility] [place] TYPE: Emergency COMPLAINT: - ABNORMAL LAB RESULTS DIAGNOSES: - Nicotine dependence, unspecified, uncomplicated - Other buttermaker (current) drug therapy - 1 Type 2 diabetes mellitus with hyperglycemia INPATIENT VISIT TRACKING (12 MO.) No inpatient visits to display in this time frame [email or web address]
[2019-07-18] MEDS ORDERED: DESVENLAFAXINE50 M2 PO (09:10)
== END 2019-07-18 11:49 | disposition home or self-care (01) ==
LOC: ED 08:50
DX: K59.00 Constipation, unspecified (principal); K92.2 Gastrointestinal hemorrhage, unspecified; E11.9 Type 2 diabetes mellitus without complications; F17.200 Nicotine dependence, unspecified, uncomplicated; Z79.899 Other long term (current) drug therapy
CPT/HCPCS: 71045; 74018; 80053; 81001; 83690; 85025; 96374; 96375; 99284-25; 99406; J2270; J2405

== ENCOUNTER 2019-10-19 07:41 | Day surgery (SDC) | payer BC ==
[~2019-10-19] VITALS: Ht 170.2 cm; Wt 89.4 kg
[~2019-10-19 07:41] MED LIST changes: +CYMBALTA60 MG PO; +DESVENLAFAXINE50 M2 PO; +GLIPIZIDE ER10 MG PO; +OMEPRAZOLE20 MG PO
--- NOTE | 2019-10-19 09:49 | NUR ---
10/19/19 0949 Mallory Sexton 0945 PATIENT ARRIVES TO PACU AWAKE BUT DROWSY. DENIES PAIN. RESP EVEN AND UNLABORED, NC AT 2 LITERS. OXYGEN TURNED OFF AFTER ARRIVAL TO PACU.
--- NOTE | 2019-10-20 07:30 | OR ---
[facility] [address], [place] [address] Signed DATE OF OPERATION: 10/19/2019 SURGEON: Eric Mcguire MD PREOPERATIVE DIAGNOSES: 1. Left upper quadrant abdominal pain. 2. Irritable bowel syndrome. 3. Hemorrhoids. 4. Guaiac-positive stool. 5. Daily smoker. 6. Daily caffeine. 7. Diabetes. POSTOPERATIVE DIAGNOSES: 1. Mild to moderate gastroduodenitis. 2. [id number] internal and external hemorrhoids. PROCEDURES: 1. EGD with CLOtest and biopsies of the duodenum, pyloric bulb and antrum. 2. Colonoscopy with random cold biopsies. ESTIMATED BLOOD LOSS: None. INDICATIONS: Laine is a 44-year-old female, who asked to see me for both upper and lower endoscopy. The last couple months she has had significant pain in left upper quadrant. There has been no trauma. She states the pain is constant, dull and throbbing. She has been worried about irritable bowel syndrome for many years. She can have 3 or 4 bowel movements in 40 minutes and then go 3 or 4 days and have nothing. She spoke of hemorrhoids for many years. Recently in the emergency room, a digital rectal exam came back guaiac positive. A CT scan of abdomen and pelvis in April 2012 was unremarkable. All her laboratory work has been unremarkable. She also told me she is adopted and has no knowledge of her family history. She also is a daily smoker and caffeine user. She is diabetic. In the office, I gave her pamphlets on both upper and lower endoscopy. We reviewed the nature of the two tests along with the risks including, but not limited to gas bloating, crampy abdominal pain, bleeding, perforation requiring surgery, and missed diagnosis. We also discussed the need for IV conscious sedation. She had expressed understanding and wished to proceed. Electronically Signed By: ERIC MCGUIRE MD 10/20/19 0730 PATIENT NAME: LAINE ALLEN OPERATIVE REPORT DATE OF : 73 REPORT #: [id number] PHYSICIAN: ERIC MCGUIRE MD PCP: MARICEL FRY PA-C REPORT IS CONFIDENTIAL AND NOT TO BE RELEASED WITHOUT AUTHORIZATION [facility] [address], [place] [address] Signed DESCRIPTION OF PROCEDURE: Laine was taken into our endoscopy suite and placed in the supine semi-recumbent position. The posterior oropharynx was anesthetized with Hurricaine spray. She was given 5 mg of Versed and 150 mcg of fentanyl. She is still awake and talking to us. Consequently, we had an anesthesia provider come in and add propofol, that worked out nicely. The adult gastroscope was introduced and advanced out into the third portion of the duodenum under direct visualization of camera without difficulty. We took a biopsy of the duodenum because of the history of diarrhea. The pyloric channel and stomach showed moderate patchy gastroduodenitis. Consequently, we took a biopsy out of the pyloric bulb as well as the antrum for CLOtest. We took an additional biopsy of the antrum for CLOtest. We saw no ulcerations. Upon retroflexion of scope, there was no evidence of a hiatal hernia. The incisura body and fundus of the stomach were less involved. The scope was withdrawn up through the area of GE junction, which was compliant without stricture. We saw no evidence of any gastric or esophageal varices. Very minimal disruption to the Z-line. No Mora's mucosa. No distal esophagitis. The middle and upper esophagus were unremarkable. After this, the gas had been suctioned out and the gastroscope removed. Laine tolerated the procedure quite well. Laine was then rotated into the left lateral decubitus position. She was maintained on propofol per our nurse political researcher. A digital rectal exam was performed and she does have several small external hemorrhoids. She has good perianal hygiene. Good sphincter tone. No masses. The adult colonoscope was introduced and advanced all around into the cecum under direct visualization of camera without difficulty. Her prep was quite excellent. We could easily see the appendiceal orifice and the ileocecal valve. We turned the camera, went up into the terminal ileum around 10-15 cm. It looked quite healthy. We took a biopsy of the terminal ilium for pathologic review due the history of diarrhea. The scope was then slowly withdrawn. We took random biopsies throughout the colon because of the history of diarrhea specifically, the right colon, transverse colon, left colon, sigmoid colon and rectum. There was no diverticulosis. No colonic polyps. The rectum itself was unremarkable. The scope was then retroflexed in the rectum and she does have just a small internal hemorrhoid columns. There were little irritated and I suspect this is the source of her guaiac-positive stool. After this, the gas was suctioned out and the colonoscope removed. Laine tolerated the procedure quite well. RECOMMENDATIONS: I will see Laine back in my office in 7 to 14 days to review her results. Eric Mcguire MD Electronically Signed By: ERIC MCGUIRE MD 10/20/19 0730 PATIENT NAME: LAINE ALLEN OPERATIVE REPORT DATE OF : 73 REPORT #: [id number] PHYSICIAN: ERIC MCGUIRE MD PCP: MARICEL FRY PA-C REPORT IS CONFIDENTIAL AND NOT TO BE RELEASED WITHOUT AUTHORIZATION [facility] [address] [facility] [place], [place] [address] Signed ALB/MODL /[id number] cc: MD Maricel Ash PA-C Copies: ERIC MCGUIRE MD ~ Electronically Signed By: ERIC MCGUIRE MD 10/20/19 0730 PATIENT NAME: LAINE ALLEN OPERATIVE REPORT DATE OF : 73 REPORT #: [id number] PHYSICIAN: ERIC MCGUIRE MD PCP: MARICEL FRY PA-C REPORT IS CONFIDENTIAL AND NOT TO BE RELEASED WITHOUT AUTHORIZATION
--- NOTE | 2019-10-20 18:10 | PATH ---
[facility] [address] [facility] [facility] [place] [address] Signed SPECIMEN(S): A DUODENAL BIOPSY SPECIMEN(S): B DUODENAL BULB BIOPSY SPECIMEN(S): C ANTRUM BIOPSY SPECIMEN(S): D TERMINAL ILEUM BIOPSY SPECIMEN(S): E ASCENDING COLON BIOPSY SPECIMEN(S): F TRANSVERSE COLON BIOPSY SPECIMEN(S): G DESCENDING COLON BIOPSY SPECIMEN(S): H SIGMOID COLON BIOPSY SPECIMEN(S): I RECTUM SPECIMEN SOURCE: A. DUODENAL BIOPSY B. DUODENAL BULB BIOPSY C. ANTRUM BIOPSY D. TERMINAL ILEUM BIOPSY E. ASCENDING COLON BIOPSY F. TRANSVERSE COLON BIOPSY G. DESCENDING COLON BIOPSY H. SIGMOID COLON BIOPSY I. RECTUM CLINICAL HISTORY: UQ pain, hemorrhoids, IBS. Postop: Gastroduodenitis. History of diarrhea. MICROSCOPIC DESCRIPTION: Histologic sections of all submitted blocks are examined by light microscopy. These findings, together with the gross examination, support the pathologic diagnosis. FINAL PATHOLOGIC DIAGNOSIS: A. Duodenum, biopsy: - Duodenal mucosa with no histopathologic abnormality. - Negative for dysplasia or malignancy. B. Duodenal bulb, biopsy: - Duodenal mucosa with changes consistent with peptic duodenitis. - Negative for dysplasia or malignancy. C. Stomach, antrum, biopsy: - Antral mucosa with focal chronic, active gastritis. - Negative for Helicobacter organisms, see Comment. - Negative for dysplasia or malignancy. D. Terminal ileum, biopsy: - Ileal mucosa with mild mucosal capillary congestion. PATIENT NAME: ALEJANDROAVERY PATHOLOGY DATE OF : 73 REPORT #: [id number] PHYSICIAN: BELKYS MCGILL PCP: JAG FRY PA-C REPORT IS CONFIDENTIAL AND NOT TO BE RELEASED WITHOUT AUTHORIZATION [facility] [address] [place], [place] [address] Signed - Negative for dysplasia or malignancy. E. Colon, ascending, biopsy: - Colonic mucosa with minimal focal active colitis. - Negative for dysplasia or malignancy. - See comment. F. Colon, transverse, biopsy: - Colonic mucosa with no histopathologic abnormality. - Negative for dysplasia or malignancy. G. Colon, descending, biopsy: - Colonic mucosa with Paneth cell metaplasia. - Negative for dysplasia or malignancy. - See comment. H. Colon, sigmoid, biopsy: - Colonic mucosa with Paneth cell metaplasia. - Negative for dysplasia or malignancy. - See comment. I. Rectum, biopsy: - Rectal mucosa with Paneth cell metaplasia. - Negative for dysplasia or malignancy. - See comment. COMMENT: An immunohistochemical stain (with appropriately staining controls) for H. pylori performed on the antral biopsy is negative for Helicobacter organisms. Sections of the ascending colon biopsy (E) demonstrate a very focal area of minimal active inflammation within glands, which could be due to bowel preparation or NSAID-induced injury. Sections of the descending (G) and sigmoid (H) colon as well as the rectal (I) biopsies demonstrate benign colonic and rectal mucosa with patchy Paneth cell metaplasia. Paneth cell metaplasia is associated with chronic colonic injury, however no other histologic features of chronic colitis, such as basal cell hyperplasia or crypt architectural distortion, are seen within these biopsies. There are no increased intraepithelial lymphocytes, subepithelial collagen band thickening, or infectious organisms seen on HE stain. Clinical correlation is required. NAL:cml:C2NR GROSS DESCRIPTION: Nine specimens are received in nine containers, labeled "SD." A. The specimen, labeled "SD, duodenal biopsy," is received in formalin and PATIENT NAME: AVERY ALLEN PATHOLOGY DATE OF : 73 REPORT #: [id number] PHYSICIAN: BELKYS MCGILL PCP: JAG FRY PA-C REPORT IS CONFIDENTIAL AND NOT TO BE RELEASED WITHOUT AUTHORIZATION [facility] [address] [place], [place] [address] Signed consists of one jordan soft tissue fragments that measure 0.2 cm in greatest dimension. The specimen is entirely submitted in cassette (A1). B. The specimen, labeled "SD, duodenal bulb biopsy," is received in formalin and consists of one jordan soft tissue fragment that measures 0.2 cm in greatest dimension. The specimen is entirely submitted in cassette (B1). C. The specimen, labeled "SD, antrum biopsy," is received in formalin and consists of one jordan soft tissue fragment that measures 0.2 cm in greatest dimension. The specimen is entirely submitted in cassette (C1). D. The specimen, labeled "SD terminal ileum biopsy," is received in formalin and consists of one jordan soft tissue fragment that measures 0.2 cm in greatest dimension. The specimen is entirely submitted in cassette (D1). E. The specimen, labeled "SD, ascending colon biopsy," is received in formalin and consists of one jordan soft tissue fragment that measures 0.3 cm in greatest dimension. The specimen is entirely submitted in cassette (E1). F. The specimen, labeled "SD, transverse colon biopsy," is received in formalin and consists of one jordan soft tissue fragment that measures 0.4 cm in greatest dimension. The specimen is entirely submitted in cassette (F1). G. The specimen, labeled "SD, descending colon biopsy," is received in formalin and consists of one jordan soft tissue fragment that measures 0.2 cm in greatest dimension. The specimen is entirely submitted in cassette (G1). H. The specimen, labeled "SD, sigmoid colon biopsy," is received in formalin and consists of one jordan soft tissue fragment that measures 0.2 cm in greatest dimension. The specimen is entirely submitted in cassette (H1). I. The specimen, labeled "SD, rectal biopsy," is received in formalin and consists of one jordan soft tissue fragment that measures 0.2 cm in greatest dimension. The specimen is entirely submitted in cassette (I1). JS (under the direct supervision of a pathologist) The Gross Description was prepared using a voice recognition system. The report was reviewed for accuracy; however, sound-alike word errors, addition and/or deletions may occur. If there is any question about this report, please contact Client Services. PATIENT NAME: AVERY ALLEN PATHOLOGY DATE OF : 73 REPORT #: [id number] PHYSICIAN: BELKYS MCGILL PCP: JAG FRY PA-C REPORT IS CONFIDENTIAL AND NOT TO BE RELEASED WITHOUT AUTHORIZATION [address] [address] Signed ADDITIONAL NOTES: Immunohistochemical and/or in situ hybridization studies were performed on this case with the appropriate positive controls that react as expected. This test was developed and its performance characteristics determined by [facility]. It has not been cleared or approved by the U.S. Food and Drug Administration. The FDA has determined that such clearance or approval is not necessary. This test is used for clinical purposes. It should not be regarded as investigational or for research. [facility] is certified under the Clinical Laboratory Improvement Amendments of 1988 (CLIA) as qualified to perform high complexity clinical laboratory testing. PERFORMING LABORATORY: The technical component was performed by [facility], [address] [place] [address] (Ancillary Specialist: Argentina Sneed MD; CLIA# [id number]). Professional [place] [address] (CLIA# [id number]). Diagnostician: Leatha Murguia MD Pathologist Electronically Signed 10/20/2019 Copies: ~ PATIENT NAME: AVERY ALLEN PATHOLOGY DATE OF : 73 REPORT #: [id number] PHYSICIAN: BELKYS MCGILL PCP: JAG FRY PA-C REPORT IS CONFIDENTIAL AND NOT TO BE RELEASED WITHOUT AUTHORIZATION
== END 2019-10-19 10:30 | disposition home or self-care (01) ==
LOC: OPS 07:41 → DS 07:41 → OPS 09:00
PROVIDERS: Colon & Rectal Surgery
PROC: 0DBK8ZX Excision of Ascending Colon, Via Natural or Artificial Opening Endoscopic, Diagnostic (ICD-10-PCS; 2019-10-19)
PROC: 0DBL8ZX Excision of Transverse Colon, Via Natural or Artificial Opening Endoscopic, Diagnostic (ICD-10-PCS; 2019-10-19)
PROC: 0DBN8ZX Excision of Sigmoid Colon, Via Natural or Artificial Opening Endoscopic, Diagnostic (ICD-10-PCS; 2019-10-19)
PROC: 0DBP8ZX Excision of Rectum, Via Natural or Artificial Opening Endoscopic, Diagnostic (ICD-10-PCS; 2019-10-19)
PROC: 0DBB8ZX Excision of Ileum, Via Natural or Artificial Opening Endoscopic, Diagnostic (ICD-10-PCS; 2019-10-19)
PROC: 0DBM8ZX Excision of Descending Colon, Via Natural or Artificial Opening Endoscopic, Diagnostic (ICD-10-PCS; 2019-10-19)
PROC: 0DB98ZX Excision of Duodenum, Via Natural or Artificial Opening Endoscopic, Diagnostic (ICD-10-PCS; principal; 2019-10-19 09:00)
PROC: 0DB78ZX Excision of Stomach, Pylorus, Via Natural or Artificial Opening Endoscopic, Diagnostic (ICD-10-PCS; 2019-10-19 09:00)
DX: K52.9 Noninfective gastroenteritis and colitis, unspecified (principal); K64.8 Other hemorrhoids; K29.50 Unspecified chronic gastritis without bleeding; Z79.899 Other long term (current) drug therapy; Z79.84 Long term (current) use of oral hypoglycemic drugs
CPT/HCPCS: 81001; 84703; 86677; J2250; J2704; J3010; J7121

== ENCOUNTER 2021-07-26 20:29 | Emergency (ER) | payer BC ==
[~2021-07-26] VITALS: Ht 170.2 cm; Wt 89.4 kg
[2021-07-26] MEDS ORDERED: METHOCARBAMOL750 MG PO (22:05)
[2021-07-26] MEDS ORDERED: GLIPIZIDE ER5 MG PO (22:06)
[2021-07-26] MEDS ORDERED: DIAZEPAM2 MG PO (22:07)
[2021-07-26] MEDS ORDERED: HYDROCODON-ACE1 EAC8 PO (22:07)
[2021-07-26] MEDS ORDERED: GLIPIZIDE XL5 MG PO (22:09)
--- NOTE | 2021-07-27 13:55 | EKG ---
[facility] [address] [facility] [place], [place] [address] Signed Normal sinus rhythm Septal infarct , age undetermined Abnormal ECG No previous ECGs available Confirmed by LUCINA REDDY DO ([id number]) on 07/27/2021 1:55:16 PM Electronically Signed By: LUCINA REDDY DO 07/27/21 1355 PATIENT NAME: AVERY ALLEN Electrocardiogram DATE OF : 73 PHYSICIAN: LUCINA REDDY DO REPORT #: [id number] REPORT IS CONFIDENTIAL AND NOT TO BE RELEASED WITHOUT AUTHORIZATION
== END 2021-07-27 02:21 | disposition short-term general hospital (02) ==
LOC: ED 20:29
DX: T81.44XA Sepsis following a procedure, initial encounter (principal); A41.9 Sepsis, unspecified organism; R65.20 Severe sepsis without septic shock; R41.82 Altered mental status, unspecified; Z98.890 Other specified postprocedural states; E11.9 Type 2 diabetes mellitus without complications; F17.200 Nicotine dependence, unspecified, uncomplicated; Z79.899 Other long term (current) drug therapy; Z79.84 Long term (current) use of oral hypoglycemic drugs; Z20.822 Contact with and (suspected) exposure to COVID-19
CPT/HCPCS: 36415; 51702; 70450; 71045; 72125; 74177; 80053; 81001; 83605; 85025; 85610; 85730; 93005; 93010; 99285-25; C9803; G0480; J0131; J1630; J2543; J3370; J7030; J7060; U0003

== ENCOUNTER 2021-08-04 07:32 | Inpatient (IN) | payer BC ==
[~2021-08-04] VITALS: Ht 170.2 cm; Wt 88.6 kg
[~2021-08-04 07:32] MED LIST changes: +DIAZEPAM2 MG PO; +GLIPIZIDE ER5 MG PO; +GLIPIZIDE XL5 MG PO; +HYDROCODON-ACE1 EAC8 PO; +METHOCARBAMOL750 MG PO
--- OUTSIDE RECORDS SUMMARY | 2021-08-04 07:34 | XMS ---
PreManage Notification: AVERY ALLEN Security Portfolio Accountant Events No recent Security Events currently on file CRITERIA MET - [facility] - 2 Visits in 30 Days CARE PROVIDERS AYDIN [facility] Current PHONE: [phone] JAG FRY Physician 07/19/2019-Current PHONE: [phone] Care Guidelines exist for the following facilities: Je Sarkar ( 06/09/2019 ) [place] VISIT COUNT (12 MO.) [address] [place] [address] [facility] [place] TOTAL 3 NOTE: Visits indicate total known visits. ED/UCC VISIT TRACKING (12 MO.) 08/04/2021 07:33 [facility] [place] TYPE: Emergency COMPLAINT: - BACK PAIN 07/27/2021 03:39 [facility] TYPE: Emergency DIAGNOSES: - Sepsis, unspecified organism - Altered Mental Status 07/26/2021 20:30 [facility] TYPE: Emergency COMPLAINT: - ALTERED DIAGNOSES: - Type 2 diabetes mellitus without complications - Sepsis following a procedure, initial encounter - long term acute care registered nurse (current) use of oral hypoglycemic drugs - Sepsis, unspecified organism - Other specified postprocedural states - Nicotine dependence, unspecified, uncomplicated - Altered mental status, unspecified - Severe sepsis without septic shock - Other alf (current) drug therapy INPATIENT VISIT TRACKING (12 MO.) 07/27/2021 03:39 [facility] TYPE: Internal Medicine DIAGNOSES: - Unspecified place in unspecified non-institutional (private) residence as the place of occurrence of the external cause - Drug induced constipation - Sepsis, unspecified organism - Disorientation, unspecified - Unspecified fall, initial encounter - Anemia, unspecified - Other intermission coordinator (current) drug therapy - Other specified abnormal findings of blood chemistry - Other specified postprocedural states 07/22/2021 08:59 [facility] DIAGNOSES: - Other symptoms and signs involving the nervous system - Spondylosis without myelopathy or radiculopathy, lumbar region - Spinal stenosis, lumbosacral region - Spinal stenosis, lumbar region without neurogenic claudication - Other intervertebral disc degeneration, lumbar region - Other specified health status - Intervertebral disc disorders with radiculopathy, lumbar region - Spinal stenosis, lumbar region with neurogenic claudication - Paresthesia of skin - Anesthesia of skin [email or web address]
[2021-08-04] MEDS ORDERED: CYMBALTA60 MG PO (08:16)
[2021-08-04] MEDS ORDERED: FLUVOXAMINE MA100 MG PO (08:17)
[2021-08-04] MEDS ORDERED: RISPERDAL0.5 MG PO (08:17)
[2021-08-04] MEDS ORDERED: BACLOFEN20 MG PO (08:18)
[2021-08-04] MEDS ORDERED: HYDROXYZINE HCL25 MG PO (08:24)
--- NOTE | 2021-08-04 16:41 | NUR ---
report recieved, care or PT assumed at thist time. pt Complains of headache on arrival, requests all lights be turned off. two person transfer from stretcher to bed.
--- NOTE | 2021-08-04 16:56 | NUR ---
ASSESSMENT COMPLETED. PT DROWSY, BUT ALERT AND ORIENTED TIMES 4. STATES SHE HAS A HEADACHE AND IS LIGHT SENSITIVE. PT FALLS ASLEEP DURING ASSESSMENT. LUNGS SOUND CLEAR. HEART RATE IN THE 60-70S AT REST. SPO2 = 100% ON ROOM AIR. DITAL RADIAL AND PEDAL PULSES ARE STRONG. PT HAS A SMALL OPEN AREA IN INGUINAL FOLD. INCISION FROM RECENT PROCEDURE IS WELL APPROXIMATED WITH NO REDNESS OR SWELLING NOTED.
--- NOTE | 2021-08-04 17:13 | NUR ---
IV POTASSIUM INFUSING. PT GIVEN 5 UNITS OF INSULIN PER SLIDING SCALE. BED ALARM IN PLACE. CALL LIGHT WITHIN REACH. WILL CONTINUE TO MONITOR.
--- NOTE | 2021-08-04 17:22 | NUR ---
RESPONDED TO PT CALL LIGHT. PT NEEDING TO URINATE BUT STATES SHE IS TOO WEAK TO STAND. PT USED BEDPAN. PROVIDED WARM BLANKETS. BED ALARM IN PLACE, CALL LIGHT WITHIN REACH, IV FLUIDS INFUSING, WILL CONTINUE TO MONITOR.
--- NOTE | 2021-08-04 18:25 | NUR ---
PT GIVEN PAIN MEDICATION FOR HEADACHE (SEE EMAR). PT HAVING A HARD TIME FINDING WORDS. ASSISTED WITH REPOSITIONING. BED ALARM IN PLACE. CALL LIGHT WIHTIN REACH. WILL CONTINUE TO MONITOR.
--- NOTE | 2021-08-04 19:31 | NUR ---
ARRIVED TO SHIFT, RECIEVED REPORT FROM DAY SHIFT RN, FOCUSED ASSESSMENT COMPLETED ON PT, LABS, ORDERS, AND EMAR REVIEWED, HEAD TO TOE ASSESSMENT COMPLETED, PT HAVING DIFFICULTY FINDING CORRECT WORDS, SAYS THINGS THAT DONT MAKE SENSE SUCH "HALF TOILET PAPER, I NEED FOR PAIN", PT DOES RESPOND WHEN ASKED QUESTIONS HOWEVER DOES NOT LOOK AT RN WHEN TALKING, HEART RATE RANGING FROM 40-70, SINUS ARRYTHMIA, APPEARS COMFORTABLE IN BED, BED ALARM ON WITH BED IN LOWEST POSITION, LIGHTS DIMMED FOR COMFORT AND TO ALLOW REST, CALL LIGHT WITHIN REACH
--- NOTE | 2021-08-04 21:47 | NUR ---
DR HASSAN NOTIFIED OF LABS, POTASSIUM STILL A BIT LOW AT 3.4 AND MAG THIS AM WAS 1.5, NO REPLACEMENT NOTED ON EMAR, PER SONYA HE WILL PLACE ORDERS
--- NOTE | 2021-08-04 23:07 | NUR ---
WHILE HANGING ABX AND OTHER GTT, PT C/O RESTLESSNESS, 2 RNS ATTEMPTED TO SIT PT UP TO ASSIST HER TO THE CHAIR HOWEVER ONCE PT WAS SEATED UP SHE STATED "IM LAYING BACK DOWN", PT WAS LAYED BACK IN BED, LINENS CHANGED WELL GOWN DUE TO INCONTIENCE, WARM BLANKETS APPLIED. PT C/O BLOOD PRESSURE CUFF BEING TOO TIGHT WHEN IT SQUEEZES, VITAL TRENDS WNL, BLOOD PRESSURE FREQUENCY CHANGED TO Q2 HOURS. PT ASKING IF SHES GOING TO AND DOES NOT UNDERSTAND WHAT WE ARE DOING. EDUCATION PROVIDED REGARDING WHY WE NEED TO LEAVE THE IVS IN PLACE IN ORDER TO DELIVER THE ABX AND ELECTROLYTES. PT STATES SHES UNDERSTANDS AND WANTS TO GO TO SLEEP. PT COVERED AND PLACED IN POSITION OF COMFORT, BED ALARM TURNED ON AND BED IN LOWEST POSITION, CALL LIGHT WITHIN REACH OF PT AND LIGHTS TURNED OFF
--- NOTE | 2021-08-04 23:49 | NUR ---
PT BEGINNING TO BECOME MORE AGGITATED AND RESTLESS, IS NOT ABLE TO GET COMFORTABLE, WANTS TO SIT UP AND THEN LAY DOWN, ATTEMPTED TO SIT PT AT THE SIDE OF BED, PT THEN WANTED TO LAY FLAT, BEGAN RAISING HER VOICE AND SAID "GET IT OUT OF ME" WHEN ASKED WHAT SHE WANTED OUT OF HER PT STATED "WHY DO I HAVE TO FUCKING EXPLAIN THIS TO YOU", RN ASKED IF THERE WAS ANYTHING ELSE SHE NEEDED, PT CLOSED EYES AND WAVED RN OUT OF ROOM. BED ALARM SET AND IN LOWEST POSITION, CALL LIGHT WITHIN REACH
--- NOTE | 2021-08-05 00:31 | NUR ---
PT RESTLESS, AGGITATED, AND SCARED. UNSURE OF WHAT IS HAPPENING. STATES "PLEASE PUT ME TO SLEEP". RN AT BEDSIDE, HOLDING PT'S HAND PER PT REQUEST, PT'S HEART RATE SPIKED TO 140S. THERAPUETIC TOUCH AND COMMUNICATION USED TO TRY TO CALM PT. PT STATES HER HEAD AND NECK HURT NOW AND HER HEAD FEELS DIZZY. ICE PACK APPLIED TO NECK (NORCO PREVIOUSLY GIVEN, SEE MAR). PT APPEARS CALMER AND MORE RELAXED. BED ALARM ON, BED IN LOWEST POSITION, CALL LIGHT WITHIN REACH
--- NOTE | 2021-08-05 01:03 | NUR ---
DR HASSAN NOTIFIED OF PTS INCREASED AGGITATION, REPORTED TO HIM PREVIOUS EPSIODE OF AGGITATION WITH TACHYCARDIA, PT BEGINNING TO GET AGGITATED AGAIN, UNABLE TO LAY STILL IN BED. KEY EDEN ADDED
--- NOTE | 2021-08-05 05:46 | NUR ---
PT RESTING, HAS BEEN INCONTIENT MOST OF TONIGHT, C/O HEADACHE THAT WONT GO AWAY, WHEN AWAKE HAS BEEN IRRITABLE AND HAS DIFFICULTY FINDING HER WORDS AT TIMES, SERAQUEL HELPED WITH PT AGGIGTATION AND ALLOWED FOR REST, PT EASILY AROUSABLE, BLOOD PRESSURE ELEVATED HOWEVER PT MOVES AND BENDS ARM WHEN IT TAKES, HEART RATE RANGING FROM MID 40S TO 70S ON AVERAGE, WILL CONITNUE TO MONITOR, NO IMMEDIATE CONCERNS
--- NOTE | 2021-08-05 07:15 | NUR ---
ASSISTED PATIENT WITH BEDPAN FOR VOID.
--- NOTE | 2021-08-05 07:30 | NUR ---
REPORT RECIEVED. PATIENT IS RESTING IN BED AT THIS TIME. IVF PATENT.
--- NOTE | 2021-08-05 07:50 | NUR ---
Update from RN. Pt not feeling well with headache. Will see tomorrow.
--- NOTE | 2021-08-05 08:19 | NUR ---
VITALS AND I&OS CHARTED. PATIENT RESTING IN BED, EYES CLOSED. BREAKFAST ON BEDSIDE TABLE.
--- NOTE | 2021-08-05 09:00 | NUR ---
C/O SEVERE POTTS. PATIENT IS ASKING WHY SHE HAS THIS PAIN. TALKED WITH PATIENT ABOUT THIS. IS LIGHT SENSITIVE. RAG APPLIED TO EYES. REFUSING CLEAR LIQUIDS AT THIS TIME. USED BED KUMAR TO EXPELL FEW DROPS OF URINE.
--- NOTE | 2021-08-05 09:25 | NUR ---
DR. HASSAN HERE TO SEE PATIENT. ORDERS RECIEVED. IV SITE TO LAC NOT FUNCTIONAL. NEW IV SITE STARTED BY Meek LASSITER RN TO RAC. PATIENT C/O INCREASED PAIN TO NECK WITH PALPATION AND ABD PAIN WITH PALPATION. UPON DR. HASSAN ASSESSMENT OF PATIENT BACK, PATIENT C/O SEVERE DISCOMFORT WITH MOVEMENT.
[2021-08-05] MEDS ORDERED: DIAZEPAM2 MG PO (10:07)
[2021-08-05] MEDS ORDERED: RISPERIDONE M-0.5 MG PO (10:11)
--- NOTE | 2021-08-05 10:14 | NUR ---
IV ABX INFUSING, MAG INFUSING.IVF INFUSING. PATIENT IS CALM AT THIS TIME. CONTINUES TO C/O POTTS.
--- NOTE | 2021-08-05 13:26 | NUR ---
VITALS CHARTED. PATIENT REQUESTED ASSISTANCE TURNING ONTO HER LEFT SIDE AT WHICH TIME SHE WINCED AND GRABBED HER HEAD, STATING "I JUST SCREWED THINGS UP BY MOVING." WASHCLOTH PROVIDED FOR PATIENTS EYES TO BLOCK LIGHT. PATIENT DENIES NEED FOR BEDPAN.
--- NOTE | 2021-08-05 13:30 | NUR ---
NORCO GIVEN FOR POTTS AND NECK PAIN.
--- NOTE | 2021-08-05 14:00 | NUR ---
MED REC COMPLETE
--- NOTE | 2021-08-05 14:31 | NUR ---
ASSISTED PATIENT OFF BEDPAN, PATIENT MISSED BEDPAN AND REQUIRED NEW SATISH AND GOWN. CALL LIGHT IN EASY REACH, NO OTHER NEEDS AT THIS TIME
--- NOTE | 2021-08-05 16:30 | NUR ---
ASSESSMENT DONE. PATIENT ABLE TO FOLLOW COMMANDS, ANSWERE QUESTIONS, IS AWRE OF PERSON, PLACE, TIME. ASKING IF SHE HAD A CT OF HER HEAD SHE FEELS LIKE SHE IS NOT THINKING RIGHT. I WENT OVER THE RESULTS OF CT. ICE PLACE TO BACK OF NECK PER PATIENT REQUEST. HAS BEEN USING BED KUMAR TO VOID, HOWEVER THE URINE GOES INTO THE BED. MOVING BETTER IN BED WITH LESS PAIN. HAS REMAINED IN BED TODAY.
--- NOTE | 2021-08-05 17:00 | NUR ---
CONTINUES TO C/O PAIN, THEN GOES BACK TO SLEEP. DR. HASSAN AWARE OF PATIENT PAIN, NO FUTHER TREATMENT ORDERED AT THIS TIME.
--- NOTE | 2021-08-05 19:22 | NUR ---
PT. CALLED REQUESTING ASSISTANCE ON BED KUMAR. FULL BED CHANGE REQUIRED. DORY CARE DONE. NEW GOWN PROVIDED. WARM BLANKET PROVIDED. FRESH ICE WATER PROVIDED. CALL LIGHT LEFT WITHIN REACH. NO OTHER IMMEDIATE NEEDS AT THIS TIME.
--- NOTE | 2021-08-05 22:54 | NUR ---
DR HASSAN NOTIFIED OF PTS CONTINUAL COMPLAINT OF HEADACHE, DESPITE PAIN MEDS PT STILL C/O OF POTTS. TORADOL ORDERED AND GIVEN, SEE JUL. WILL REASSESS IN 30-60 MINUTES
--- NOTE | 2021-08-06 02:11 | NUR ---
PT RESTING NO IMMEDIATE CONCERNS, WILL CONTINUE TO ALLOW REST
--- NOTE | 2021-08-06 07:22 | NUR ---
REPORT RECIEVED, CARE OF PT ASSUMED AT THIS TIME. PT IN BED ASLEEP. RR = 20. CALL LIGHT WITHIN REACH AND BED ALARM IN PLACE. WILL CONTINUE TO MONITOR.
--- NOTE | 2021-08-06 07:35 | NUR ---
IN ROOM TO CHECK PT BLOOD SUGAR. PT COMPLAINS OF HEADACHE AT THIS TIME. PLAN TO GIVE PRN KETOROLAC PER PT REQUEST. PT STATES IT HAS BEEN THE MOST EFFECTIVE AT MINIMIZING HER HEADACHE. CALL LIGHT WITHIN REACH. WILL CONTINUE TO MONITOR.
--- NOTE | 2021-08-06 07:56 | NUR ---
ASSESSMENT COMPLETED AT THIS TIME. PT ALERT AND ORIENTED, ANSWERING ALL QUESTIONS APPROPRIATELY. PT GIVEN LONG ACTING AND SLIDING SCALE INSULIN (SEE EMAR). PT ALSO GIVEN PRN TORRIDOL FOR A HEADACHE SHE RATES 7/10 ON THE PAIN SCALE. PT ASSISTED ONTO BED TIME TO VOID AND THEN REPOSITIONED IN BED WHEN FINISHED. PT NOW EATING BREAKFAST. CALL LIGHT WITHIN REACH. IV ABX INFUSING. NO FURTHER NEEDS AT THIS TIME.
--- NOTE | 2021-08-06 08:00 | NUR ---
Pt lives in a 1 story home with 7 steps with her 21 yo daughter and 20 yo twins. She has a walker from her recent back surgery. She denies needs, feels she will be able to walk up steps. States she is shakey today, but could manage. Discussed she is not ready for dc yet. She states her daughters will be able to assist her as needed. She states she is ok financially. She is aware of [facility] and [employer] [facility], but does not use. Plans on dc to home with children when cleared medically.
--- NOTE | 2021-08-06 10:00 | NUR ---
REQUESTING BLT. STATES SHE IS FEELING HUNGERY. DENIES NAUSEA.
--- NOTE | 2021-08-06 11:15 | NUR ---
ATTEMPTED TO GET OOB TO USE COMMODE, PATIENT C/O SEVERE DIZZINESS WITH MOVEMENT. UNABLE TO GET PATIENT OOB. ON BED KUMAR NOW. STATES HEADACHE IS LESS. IS ORIENTED TO PERSON, PLACE AND TIME.
--- NOTE | 2021-08-06 12:00 | NUR ---
ACCUCHECK AFTER PATIENT ATE BLT AT [address] HASSAN IS AWARE AND SAID TO RECHECK ACCUCHECK AT 1330 AND GIVE SS INSULIN AT THAT TIME, AND DO NOT GIVE THE 6 UNITS OF INSULIN UNTIL DINNER.
--- NOTE | 2021-08-06 12:12 | NUR ---
REPORT RECEIVED FROM STANLEY CERRATO. AWAITING PTS ARRIVAL TO MED/SURG.
--- NOTE | 2021-08-06 12:45 | NUR ---
BED BATH GIVEN, AND BED LINES CHANGED. TOLERATED WELL. PATEINT DENEIS PAIN, CONTIUNES WITH DIZZINESS.
--- NOTE | 2021-08-06 13:00 | NUR ---
TO MED-SURG VIA BED. REPORT GIVEN EARLIER.
--- NOTE | 2021-08-06 13:02 | NUR ---
PT ARRIVED FROM CCU BY BED. PT ORIENTED TO ALL. PT DENIES PAIN AT THIS TIME. PT ASKED SPECIFICALLY ABOUT HEADACHE AND ALSO DENIES HEADACHE. PT DOES REQUEST THAT CURTAINS BE CLOSED IN ROOM TO KEEP THE LIGHT OUT SO THAT SHE WILL BE LESS PRONE TO HER HEADACHE RETURNING. PT RESPONDING TO QUESTIONS APPROPRIATLY. PT REPORTS ONGOING WEAKNESS IN ALL EXREMITIES. SET UP MECHANIC AUTOMATIC LINE STRENGTH STRONG. PT IS ABLE TO LIFT BOTH LEGS AND ARMS OFF THE BED WITH OUT ISSUE. PT REPORTS ONGOING DIZZINESS "ESPICIALLY WHEN I OPEN MY EYES." PT REPORTS SHE IS TOO DIZZY TO GET OUT OF BED. PT DENEIS NAUSEA. ABDOMEN SOFT TO TOUCH. BOWEL TONES ACTIVE. PT DENIES CONSTIPATION. BOWEL MOVEMENT LAST RECORDED ON 08/02. WOUND TO BACK WNL, SMALL SCABS NOTED ALONG INCISION SITE. EGES OF WOUND WELL APROXIMATED WITH MINIMAL REDNESS NOTED. PT RESTING IN QUIET ROOM. NO ADDITIONAL REQUESTS OR COMPLAINTS. CALL LIGHT WITHIN REACH. BED RAILS UP.
--- NOTE | 2021-08-06 13:27 | NUR ---
BLOOD SUGAR REPEATED PER MD ORDER RELATED TO PTS LATE MEAL. STANLEY CERRATO STATES MD ORDER WAS TO GIVE SLIDING SCALE AT THIS TIME BUT NOT BASLINE 6 UNITS. 9 UNITS GIVEN (SEE MAR). MAGNESIUM COMPLETE. IV ABX STARTED. PT RESTING IN BED. NO ADDITIONAL REQUESTS OR COMPLAINTS. CALL LIGHT WITHIN REACH. BED RAILS UP.
--- NOTE | 2021-08-06 14:38 | NUR ---
THIS RN TO ROOM WITH AFTERNOON MEDICATION AND MEDICATION. PT REPORTS ONGOING DIZZINESS. PT ALSO REPORTS NAUSEA "WHEN I TRY TO MOVE." PT DENIES HEADACHE AND DENIES BACK OR NECK PAIN. PT REPORTS NO PAIN AT ALL AT THIS TIME. MD CONSULTED REGARING PROPHLACTIC NAUSEA MEDICATIONS. MEDICATIONS GIVEN. PT WORKING WITH MIKEY FROM PHYSICAL THERAPY. CALL LIGHT WITHIN REACH.
--- NOTE | 2021-08-06 15:00 | NUR ---
MD UPDATED ON PT STATUS AND COMPLAINTS OF DIZZINESS AND NASUEA. NEW ORDERS PLACED. AWAITING PHARMACY VARIFICATION.
--- NOTE | 2021-08-06 15:48 | NUR ---
PTS SON LESLY CALLED AND UPDATED ON PT STATUS. LESLY VEBALIZES UNDERSTANDING AND STATES HIS QUESTIONS HAVE BEEN ANSWERED. LESLY STATES PTS HOME MEDICATIONS ARE WITH PT IN HER BELONGINGS. MEDICATIONS RETRIEVED AND PLACED IN SAFE FOR PT. PHARMACIST REMOVES MEDICAITONS NEEDED FOR ADMINISTRATION AND NEEDED MEDICATIONS ARE PLACED IN PT MEDICATION BIN. PT CONTINUES TO REPORT DIZZINESS AND NAUSEA. PT ALSO REQUESTS "A FRUIT CUP." FRUIT ORDERD WITH DINNER AND PRN NAUSEA/DIZZINESS MEDICATION GIVEN. PT ENCOURAGED NOT TO EAT AT THIS TIME IT MAY WORSEN HER NAUSEA. PT RESTING IN BED, DENIES PAIN AT THIS TIME IN ANY LOCATION. PT RESTING WITH EYES CLOSED. RESPIRATIONS EVEN AND UNLABORED. BED RAILS UP. CALL LIGHT WITHIN REACH.
--- NOTE | 2021-08-06 16:19 | NUR ---
PT CALL LIGHT ON. PT REPORTS 02/07 HEADACHE. SEE MAR FOR MEDICATION GIVEN. COOL CLOTH APPLIED TO HEAD WELL. MUSIC/TELEVISION TURNED OFF WELL TO MINIMZE STIMULUS IN ROOM. PT REPORTS "THAT HELPS." LIGHT DIM. NO ADDITIONAL REQUESTS OR COMPLAINTS. CALL LIGHT WITHIN REACH. BED RAILS UP.
--- NOTE | 2021-08-06 16:49 | NUR ---
PT HERE FOR ENCEPHALOPATHY AND ALTERED SENSORIUM. PT REMAINS BED BOUND THIS SHIFT. SAT AT EDGE OF BED WITH PHYSICAL THERAPY AND REPORTS SHE IS UNABLE TO DO MORE. PT REPORTS ONGOING DIZZINESS AND NAUSEA WITH ANY ACTIVITY. NEW MEDICATIONS ORDERD TO ASSIST WITH SYMPTOMS. PT TOERLATING 60G CARB DIET WITH MINIMAL APPITITE. BLOOD SUGAR CHECKS WITH MEALS AND HS, SCHEDUELD AND SLIDING SCALE INSULINE, BLOOD SUGARS REMAIN HIGH. IV ABX GIVEN. PRN PAIN MEDICAITON GIVEN FOR HEADACHES. PT VOIDING ON BED KUMAR, QUANTITY SUFFICIENT. PT USES CALL LIGHT AND MAKES NEEDS KNOWN.
--- NOTE | 2021-08-06 17:02 | NUR ---
BLOOD SUGAR AND INSLUIN DUE. THIS RN TO ROOM TO CHECK ON PT. PT RESTING ON BACK WITH EYES CLOSED. RESPRIATIONS EVEN AND UNLABORED. PT SLOW TO ANSWER QUESTIONS BUT ANSWERS APPROPRIATLY. PT REPORTS 5/10 HEADACHE THAT SHE STATES IS TOELRABLE. PT REPORTS NAUSEA HAS RESOLVED. BLOOD SUGAR TAKEN. INSULIN GIVEN. PT DENIES ADDITIONAL REQUESTS OR CONCERNS. BED RAILS UP. CALL LIGHT WITHIN REACH.
--- NOTE | 2021-08-06 17:46 | NUR ---
PATIENT USED BEDPAN FOR LARGE VOID, NEW CHUX PLACED UNDER PATIENT. I/O DONE. VITALS DONE.
--- NOTE | 2021-08-06 18:08 | NUR ---
MEDICATION DUE. THIS RN TO ROOM. PT REPOSITIONS SELF IN BED. PT REPORTS HEADACHE IS NOW 3/10 AND "VERY TOLERABLE." PT SITTING UP TO EAT DINNER IN BED, HEAD OF BED ELEVATED TO 21 DEGREES. IV ASSESSED, WNL. BLOOD RETURN NOTED. IV ABX STARTED (SEE MAR). PT DENIES ADDITIONAL REQUESTS OR COMPLAINTS. CALL LIGHT WITHIN REACH. BED RAILS UP.
--- NOTE | 2021-08-06 18:50 | NUR ---
THIS RN TO ROOM TO CHECK ON PT. PT DENIES HEADACHE AND NAUSEA AT THIS TIME. PT REPORTS DIZZINESS "ONLY WHEN I MOVE." PT ENCOUARGED TO REST. PT DENIES ADDITONAL REQUESTS OR COMPLAINTS. PT RESTING WITH HEAD OF BED ELEVATED TO 25 DEGREES. CALL LIGHT WITHIN REACH. BED RAILS UP.
--- NOTE | 2021-08-06 19:15 | NUR ---
SHIFT REPORT RECEIVED FROM ANDRIAINJAGJIT ORR AT BEDSIDE. pt AWAKE AND REPORTS 8/10 PAIN R/T HEADACHE, STANLEY ORR ADMINISTERING PRN PAIN MEDICATION (SEE EMAR). COOL RAG ALSO APLIED TO FOREHEAD FOR COMFORT. BED ALARM ON. IV VANCO INFUSING DIRECTED, IV SITES X2 WNL. CALL LIGHT IN REACH. NO FURTHER NEEDS.
--- NOTE | 2021-08-06 19:21 | NUR ---
PT CALL LIGHT ON. PT REPORTS 01/07 HEADACHE AND REQUESTS PAIN MEDICATIONS. SEE MAR FOR MEDICATION GIVEN. REPORT GIVEN TO STANLEY JUÁREZ AT BEDSIDE. PT DENIES ADDITIONAL REQUESTS OR COMPLAINTS. CALL LIGHT WITHIN REACH. BED RAILS UP.
--- NOTE | 2021-08-06 19:50 | NUR ---
ASSISTED PT WITH BEDPAN NEEDS, NO FURTHER NEEDS AT THIS TIME
--- NOTE | 2021-08-06 21:45 | NUR ---
VITALS AND ACCU-CHECK DONE (SEE eMAR), PT USES THE BEDPAN, NO FURTHER NEES AT THIS TIME
--- NOTE | 2021-08-06 23:30 | NUR ---
ASSESSMENT COMPLETE, SCHEDULED MEDICATIONS GIVEN (SEE EMAR). pt DECLINES PAIN AT THIS TIME INCLUDING PAIN FROM H/A AT SHIFT CHANGE. ALSO DENIES NAUSEA. IV SITES X2 WNL, IV ABX INFUSING DIRECTED. pt A/O AT THIS TIME, CAN BE FORGETFUL. VSS AND I&O'S COMPLETE. NO FURTHER NEEDS, CALL LIGHT IN REACH. BED ALARM REMAINS ON FOR SAFETY.
--- NOTE | 2021-08-07 00:09 | NUR ---
CALL LIGHT ANSWERED, pt REPORTS 8/10 PAIN IN NECK. PRN PAIN MEDICATION GIVEN (SEE EMAR). NO FURTHER NEEDS, IV SITES X2 REMAINS WNL. CALL LIGHT IN REACH.
--- NOTE | 2021-08-07 02:08 | NUR ---
ASSESSMENT COMPLETE, pt REPORTS TOLERABLE 7/10 PAIN. DENIES NAUSEA. pt RECENTLY PLACED ON BEDPAN BY LOCAL TELEPHONE OPERATOR, OFF AT THIS TIME. 400MLS OUTPUT NOTED. REDDNESS TO DORY AREA NOTED, pt STATES, "I THINK IT'S FROM MY DIABETES". DORY CARE DONE, BRN BARRIER CREAM. NO ACUTE CHANGES TO ASSESSMENT. IV VANCO INFUSING DIRECTED, IV SITE X2 REMAINS WNL. CALL LIGHT IN REACH. pt DIAPHORETIC, AFEBRILE. COOL RAG TO FOREHEAD PROVIDED. NO FURTHER NEEDS.
--- NOTE | 2021-08-07 03:14 | NUR ---
IV PUMP ALARMING, IV ABX COMPLETE. IV SITE WNL, SITE SALINE LOCKED. pt DENIES FURTHER NEEDS, IV SITE TO RIGHT WRIST REMAINS WNL. CALL LIGHT IN REACH.
--- NOTE | 2021-08-07 04:30 | NUR ---
IN TO GET VITALS, I&Os, FRESH WATER GIVEN, NO FURTHER NEEDS AT THIS TIME
--- NOTE | 2021-08-07 04:41 | NUR ---
IV PUMP ALARMING, IV VANCO COMPLETE. IV SITES X2 REMAIN WNL. VSS AND I&O'S COMPLETE, FRESH WATER PROVIDED. CALL LIGHT IN REACH.
--- NOTE | 2021-08-07 04:53 | NUR ---
CALL LIGHT ANSWERED, pt REPORTS FEELING UNCOMFORTABLE. REPOSITIONED SELF FROM RIGHT SIDE TO BACK. pt INITIALLY ASKING TO TURN AND THOUGHT ABOUT LAYING IN THE PRONE POSITON, BUT THEN STATES, "N I THINK I WANNA STAY LIKE THIS". pt WAS BOOSTED IN BED WITH HELP FROM SECOND RN RUFINO, NO FURTHER NEEDS. BED ALARM ON FOR SAFETY AND CALL LIGHT IN REACH.
--- NOTE | 2021-08-07 06:33 | NUR ---
SCHEDULED IV ABX INFUSING DIRECTED, IV SITE WNL. pt RESTING IN BED WITH EYES CLOSED. RR EVEN AND UNLABORED, NO DISTRESS NOTED. CALL LIGHT IN REACH.
--- NOTE | 2021-08-07 07:08 | NUR ---
REPORT RECEIVED FROM STANLEY JUÁREZ. PT RESTING IN BED ON BACK. PT REPORTS 7/10 NECK PAIN AND REQUESTS PAIN MEDICATION WITH HER MORNING MEDICATIONS. PT ASSISTED ONTO BED KUMAR TO VOID. PT VOIDS LARGE AMOUNT OF YELLOW URINE, UNMEASURED AT THIS TIME. DORY CARE DONE. PT DENIES ADDITIONAL REQUESTS OR COMPLAINTS. CALL LIGHT WITHIN REACH. BED RAILS UP.
--- NOTE | 2021-08-07 07:46 | NUR ---
MORNING ASSESSMENT AND MEDICATION DUE. PT CONTINUES RESTING IN BED. HAS HEAD COVERED WITH BLANKETS. PT REPORTS 7 HEADACHE AND 7/10 NECK PAIN. SEE MAR FOR MEDICATION GIVEN. ROOM KEPT DARK PER PT PREFERENCE. PT REPORTS SHE WOULD LIKE TO TRY TO GET UP TO CHAIR THIS MORNING AND POSSIBLY SHOWER LATER THIS MORNING. PT ALERT AND ORIENTED TO ALL. PT RESPONDS APPROPIRATLY TO QUESTIONS ALTHOUGH TAKES HER TIME AND IS A BIT SLOW TO RESPOND. PT OCCATIONALLY FORGETFUL OF PREVIOUSLY DISCUSSED TOPICS. PT REPORTS "I CAN'T SEEM TO KEEP MY EYES OPEN LONG ENOUGH TO UNDIZZY MYSELF, I'M JUST, YEAH, FLOATING." PT UNABLE TO CLARIFY IF SHE IS FEELING DIZZY OR NOT. LUNG SOUNDS CLEAR, HEART TONES REGULAR. BOWEL TONES ACTIVE. NOTED THAT PTS LAST BM WAS 3/5, PT DENIES CONSTIPATION AND DECLINES BOWEL MEDICATIONS. PT REPORTS SHE IS READY TO GET UP TO CHAIR. 1 PERSON STAND BY ASSIST UP TO CHAIR. PT REPORTS DIZZINESS WITH MOVEMENT WHEN HER EYES ARE OPEN. PT REMAINS UP TO CHAIR. CALL LIGHT WITHIN REACH. NO ADDITIONAL REQUESTS OR COMPLAINTS.
--- NOTE | 2021-08-07 08:27 | NUR ---
PATIENT UP TO RECLINER WITH RN. LINEN CHANGED. CALL LIGHT IN EASY REACH
--- NOTE | 2021-08-07 09:32 | NUR ---
THIS RN TO ROOM TO CHECK ON PT. PT UP TO CHAIR. PT REPORTS 7/10 PAIN IN NECK AND BACK AND REPORTS 7/10 HEADACHE CONTINUES. PT NOTED TO HAVE TV ON AND MUSIC ON. PT ENCORUAGD TO LOWER THE STIMULUS IN THE ROOM. PT REPORTS "IT'S FINE, I LIKE THE NOISE." PT REPORTS SHE WOULD LIKE TO WAIT UNTIL NEXT PAIN MEDICAITON IS DUE BEFORE TAKING MORE MEDIATION. PT JOJO RUBALCAVA. LUNCH ORDER PLACED PER PT PREFERENCES. LAB TO BEDSIDE FOR [facility]. PT DENIES ADDITIONAL REQUESTS OR COMPLAINTS. CALL LIGHT WITHIN REACH.
--- NOTE | 2021-08-07 10:49 | NUR ---
THIS RN TO ROOM TO CHECK ON PT. PT REPROTS 7/10 HEADACHE AND NECK PAIN. PT REPORTS LLQ ABDOMINAL CRAMPING WELL. PT ENCOURAGED TO TRY STOOL SOFTENERS. PT AGREES, ORDER PLACED. PRN PAIN MEDIATION GIVEN FOR HEADACHE AND NECK PAIN. VITAL SIGNS STABLE. PT WORKING WITH PHYSICAL THERAPIST. NO ADDITONAL REQUESTS OR COMPLAINTS. CALL LIGHT WITHIN REACH.
--- NOTE | 2021-08-07 11:55 | NUR ---
MEDICATIONS DUE. DR HASSAN TO BEDSIDE FOR ROUNDS. PT REPORTS CONGESTION AND "EARS ARE STUFFY." PT DENIES HEADACHE, NECK PAIN AND BACK PAIN AT THIS TIME. PT CONTINUES TO REPORT CONSTIPATION. NEW MEDICATION ORDERS PLACED. MEDICAITONS GIVEN (SEE MAR). PT ANTICIPATING LUNCH AND PLANS TO SHOWER AFTER LUNCH. PT DENIES ADDTIONAL REQUESTS OR COMPLAINTS AT THIS TIME. PT REMAINS UP TO CHAIR FOR LUNCH. CALL LIGHT WITHIN REACH.
--- NOTE | 2021-08-07 13:18 | NUR ---
AFTERNOON ASSESSMENT AND MEDICATION DUE. PT REMAINS UP TO CHAIR. PT FINISHED WITH LUNCH, ABLE TO EAT 100%. PT DENIES PAIN, HEADACHE OR OTHER DISCOMFORT BUT REPORT MILD NAUSEA AND "DIZZY WHEN I OPEN MY EYES." PRN BENADRYL GIVEN PER MD ORDER. RIGHT AC IV INFUSION COMPELTE. IV FLUISHED AND SALINE LOCKED PER PROTCOL, ALCOHOL CAP APPLIED. ABX DUE AND PT REQUESTS THEY INFUSE THROUGH WRIST IV WHICH "IS EASIER TO MOVE WITH." PT ALERT AND OREITNED TO ALL. MILDY DROWSY BUT RESPONDS APPROPIRATLY TO QUESTIONS. NORMAL STRENGTH NOTED WHEN PT WAS STANDING AND MOVEING. ONGOING DIZZINESS. BACK BRACE REMAINS IN PLACE WHILE PT IS UP TO CHAIR. LUNG SOUNDS CLEAR. HEART TONES REGULAR. NO BOWEL MOVEMENT NOTED AT THIS VLADIMIR, STRONG ACTIVE BOWEL TONES NOTES. INCISION TO LOWER BACK REMAINS WNL, SMALL SCABS NOTED, EDGES WELL APROXIMATED, WOUND CLEAN. MILD ERYTHEMA NOTED. PT REPORTS SHE WOULD LIKE TO SHOWER THIS AFTERNOON, STATES SHE WILL USE CALL LIGTH WHEN READY FOR SHOWER. NO ADDITIONAL REQUESTS OR COMPLAINTS. CALL LIGHT WITHIN REACH.
--- NOTE | 2021-08-07 14:29 | NUR ---
THIS RN TO ROOM TO CHECK ON PT. PT SITTING UP IN CHAIR EATING FRUIT. PT REPORTS NAUSEA HAS RESOLVED. DENIES PAIN AND STATES DIZZINESS IS "MUCH BETTER." PT REPORTS SHE IS READY FOR HER SHOWER. IV SALINE LOCKED FOR SHOWER. PRODUCTION LINE TECHNICIAN TO BEDSIDE AND WORKING WITH PT FOR SHOWER. PT DENIES ADDITIONAL REQUESTS OR COMPLAINTS. CALL LIGHT WITHIN REACH. PRODUCTION LINE TECHNICIAN WITH PT.
--- NOTE | 2021-08-07 15:04 | NUR ---
RETURN CALL PLACED TO PTS SON LESLY WITH AN UPDATE ON PT STATUS. LESLY VERBALIZES UNDERSTANDING OF PLAN OF CARE AND STATES HIS QUESTIONS HAVE BEEN ANSWERED. PT FINSIHED WITH SHOWER AND SITTING ON THE EDGE OF THE BED FOR HAIR STYLING. TANGLES COMBED FROM HAIR, HAIR BRAIDED, PT STATES "OH THAT FEELS MUCH BETTER." PT REPORTS MINOR DIZZINESS WHILE UP TO SHOWER. PT DENIES DIZZINESS AT THIS TIME BUT REPOERTS FEELING TIRED AND READY FOR A NAP. PT DENIES PAIN IN NECK, HEADACHE, OR BACK. REPORT OCCATIONAL ABDOMINAL CRAMPING. PT ENCORUAGED TO FINISH DRINKING HER MIRALAX. PT DENIES NAUSEA. PT NOW RESTING IN BED ON BACK. NO ADDITONAL REQUESTS OR COMPLAINTS. CALL LIGHT WITHIN REACH. BED RAILS UP. DINNER ORDER PLACED FOR PT.
--- NOTE | 2021-08-07 15:29 | NUR ---
PATIENT UP TO SHOWER WITH 1PA AND FWW. PATIENT DIZZY BUT TOLERATED WELL. PATIENT ABLE TO DO MOST OF THE SHOWER HERSELF. PATIENT BACK TO SIDE OF BED, STANLEY ORR AND THIS GI ASST WORKING SEVERAL MINUTES TO COMB THROUGH HER HAIR AND BRAID IT. PATIENT BACK TO BED AT THIS TIME, CALL LIGHT AND PERSONAL ITEMS IN EASY REACH
--- NOTE | 2021-08-07 15:47 | NUR ---
PT HERE FOR ALTERED SENSORIUM AND ENCEPHALOPATHY. PT UP WITH 1 PERSON ASSIST AND FWW THIS SHIFT TO CHAIR, TO AMBULATE AND TO SHOWER. BACK BRACE IN PLACE WHEN PT IS OUT OF BED. PT TOLERATES AMBULATION AND SHOWER WITH SOME DIZZINESS AND OCCATIONAL NAUSEA. PRN MEDICAITON GIVEN FOR NAUSEA/VERTIGO. PT TOLERATING 60G CARB DIET WITH GOOD INTAKE. BLOOD SUGAR CHECKS WITH MEALS AND HS WITH SLIDING SCALE INSULIN AND INCREASED SCHEDULED INSULIN. PT REPORTS CONSITPATION THIS SHIFT. BOWEL MEDICATIONS ORDERED. PT ALERT AND OREINTED THIS SHIFT. PRN PAIN MEDICATION GIVEN FOR HEADACHE AND NECK BACK PAIN. INCISION TO LOWER BACK REMAINS WNL, EDGES WELL APROXIMATED WITH MINOR ERYTHEMA AND SMALL SCABS NOTED. PT VOIDING QUANTITY SUFFICIENT. PT USES CALL LIGHT AND MAKES NEEDS KNOWN.
--- NOTE | 2021-08-07 16:41 | NUR ---
THIS RN TO ROOM TO CHECK ON PT. EVENING BLOOD SUGAR AND MEDICATIONS DUE. PT RESTING IN BED WATCHING TV. PT DENIES PAIN AT THIS TIME. PT DENIES NAUSEA. REPORTS MILD DIZZINESS THAT COMES AND GOES. PT DENIES NEED FOR PAIN, NAUSEA OR VERTIGO MEDICATION AT THIS TIME. MEDICAITONS GIVEN (SEE MAR). NO ADDITONAL REQUESTS OR COMPLAINTS. PT EATING DINNER. CALL LIGHT WITHIN REACH. BED RAILS UP.
--- NOTE | 2021-08-07 17:18 | NUR ---
PT CALL LIGHT ON. PT REQUEST PAIN MEDICAITON FOR 02/07 HEADACHE AND NECK PAIN. VITAL SIGNS STABLE. PT FINISHED WITH DINNER. PT REQUESTS QUIET TIME FOR A NAP. PHONE DISCONNECTED PER PT REQUEST. SEE MAR FOR MEDICATION GIVEN. NO ADDITIONAL REQUESTS OR COMPLAINTS. CALL LIGHT WITHIN REACH. BED RAILS UP.
--- NOTE | 2021-08-07 18:07 | NUR ---
Patient's home medications placed in safe.
--- NOTE | 2021-08-07 18:26 | NUR ---
THIS RN TO ROOM TO CHECK ON PT. PT RESTING WITH EYES CLOSED. RESPIRATIONS EVEN AND UNLABORED. BED RAILS UP. CALL LIGHT WITHIN REACH. PT ALLOWED TO REST.
--- NOTE | 2021-08-07 18:45 | NUR ---
PT CALL LIGHT ON. PT REPORTS NEED TO VOID. PT ENCOURAGE TO GET UP TO BEDSIDE COMODE. PT DECLINES. BED KUMAR PROVIDED. PT VOIDS BUT SHEETS AND GOWN ARE SATURATED. 1 PERSON ASSIST UP TO CHAIR. DORY CARE DONE. GOWN CHANGED. LINENS CHANGED. STAND BY ASSIST BACK TO BED. WARM BLANKET PROVIDED. IV CEFEPIME INFUSION COMPLETE. RIGHT WRIST IV FLUSHED AND SALINE LOCKED, ALCOHOL CAP APPLIED. PT RESTING IN BED. HEAD OF BED ELEVATED TO 20 DEGREES. PT REPORTS HEADACHE AT 7/10 BUT DECLINES ADDITONAL PAIN MEDICATION. COOL CLOTH PROVIDED PER PT REQUEST. NO ADDTIONAL REQUESTS OR COMPLAINTS. CALL LIGHT WITHIN REACH. BED RAILS UP.
--- NOTE | 2021-08-07 20:45 | NUR ---
IN TO GET VITALS, ACCU-CHECK, PT HAD REQUESTED TO USE THE BSC, THEN BACK TO BED, FRESH WATER AND SURBURT PROVIDED TO PT, NO FURTHER NEEDS AT THIS TIME
--- NOTE | 2021-08-07 21:28 | NUR ---
pt awake, alert and oriented. no c/o h/a, c/o lower back pain. medicatd with voltaren tab. low back area incision healig well, . On room air, lungs clear, bruised L periorbital area healing, denies c/o vision changes at this time. 2 SL RA patent. Up to br, voiding QS, 1PA, back to bed, tolerated well, no c/o lightheadness. CBG 161, received 1 unis ss insulin. call light and fresh fluids at bedside.
--- NOTE | 2021-08-07 23:32 | NUR ---
UP TO BSC, VOIDED QS, BACK TO BED, MINIMUM OF ASSIST, TOLERATED WELL.
--- NOTE | 2021-08-08 00:20 | NUR ---
C/O 03/09 H/A, MEDICATED WITH 1 NORCO. ICE PACK FOR BACK OF NECK AND WET COLD TOWEL FOR FOREHEAD, REPOSITIONS SELF INBED. CALL LIGHT AND FLUIDSA T BEDSIDE
--- NOTE | 2021-08-08 01:47 | NUR ---
USED CALL LIGHT, UP TO BSC, VOIDED, C/O LIGHTHEADNESS, LIGHTLY IMPROVED H/A. SBA, IV ABD INFUSING W/O PROBLEMS. CALL LIGHT AND FLUIDSA T BEDSIDE, NO C/O EMESIS
--- NOTE | 2021-08-08 02:24 | NUR ---
c/o itching at RW iv sited, vancomycin infusing in that site. good return, no edema, no leakage. medicated with Benadryl 12.5mg IV. no further c/o itching afterwards. cont to observe
--- NOTE | 2021-08-08 05:33 | NUR ---
Pt on room air, SBA, up to bsc, tolerated fait, c/o lightheadness and abd pain, was medicated with norco X!, voltaren x2 per back and h/a pain, fair effectiveness. healing lumbar low back incision healing. was medicated with Benadryl IV while Vancomycin infusing, effective. tolerating liquids well, no c/o hypo/hyperglycemia.
--- NOTE | 2021-08-08 07:21 | NUR ---
c/o increased pain from neck to back, medicated with 1 norco. tolerating liquids well, no emesis. uses call light
--- NOTE | 2021-08-08 07:46 | NUR ---
Patient resting in bed, eyes closed, respirations even and non labored. Patient has no distress. Personal supplies and call light within reach. No current needs.
--- NOTE | 2021-08-08 10:37 | NUR ---
Patient resting in bed with eyes closed at this time, respirations even and non labored. Patient reports she has continued dizziness at rest and worsens with movement. Encouraged patient to continue working with physical therapy and always call staff if she needs assistance, pt agrees to plan of care. Bed alarm on. Patient has no current needs. Personal supplies and call light within reach.
--- NOTE | 2021-08-08 11:17 | NUR ---
bENADRYL 12.5MG IVP ADMIN FOR DIZZINESS.
--- NOTE | 2021-08-08 12:47 | NUR ---
Patient left med-surg dept for MRI.
--- NOTE | 2021-08-08 14:35 | NUR ---
Patient sitting in bed eating lunch, no distress. Patient more alert this afternoon, her family is at the bedside visiting with her. Scheduled medications admin per provider order. Patient has no current needs. Bed alarm intact.
--- NOTE | 2021-08-08 17:21 | NUR ---
Patient in bed watching tv, no distress. Patient is in good spirits conversing with this RN. Patient reports she is feeling better this evening, decreased head pain reported. Patient assisted to bedside commode to void, tolerated the moving very well as compared to earlier in this shift. Patient's appetite has notably improved as well.
--- NOTE | 2021-08-08 18:33 | NUR ---
[place] one tab 10/325mg po admin at this time for reported generalized pain.
--- NOTE | 2021-08-08 18:57 | NUR ---
In to check on patient. Patient sitting on floor next to bed with CONTINUOUS IMPROVEMENT MANAGER standing next to her. Patient assisted to floor per Brigid due to patient becoming dizzy. Patient denies hitting her head or any injuries. Vital signs stable at this time. Patient has no visible trauma noted. Patient back to bed with two persona assist. Bed alarm in place.
--- NOTE | 2021-08-08 19:01 | NUR ---
Dr. Lara notified of near fall.
--- NOTE | 2021-08-08 19:49 | NUR ---
pt up to bedpan, voided, c/o 02/07 neck to back pain. medicated with voltaren. tolerating liquids well. uses call light
--- NOTE | 2021-08-08 23:22 | NUR ---
RESTING, EYES CLOSED, ON ROOMAIR, NO DISTRESS, CALL LIGHT AND FLUIDS AT BEDSIDE
--- NOTE | 2021-08-09 00:30 | NUR ---
PT ASSISTED TO THE BSC AND BACK TO BED, PT ATTEMPTED TO HAVE BM, NONE NOTED, NO FURTHER NEEDS AT THIS TIME
--- NOTE | 2021-08-09 00:57 | NUR ---
up to bsc, voided, placed self back to bed, tolerated well. no further c/o pain or n/v. call light at hands reach
--- NOTE | 2021-08-09 02:09 | NUR ---
Up to bsc, no c/o pain, placed self back to bed, uses call light and tolerating liquids well
--- NOTE | 2021-08-09 05:17 | NUR ---
Pt on room air, improved pain control, lightheadiness and light sensitivity. tolerating liquids well. Up to BSC several times with SBA. voiding QS, LBM 08/02/21, receiving bowel care med, not effective, abd soft, active BT's. no c/o abd tenderness. 2SL patent. medicated x1 with Voltaren per neck/back pain, effective. low lumbar incision scabbed over, healing well, tender as per pt. uses call light. alert and oriented. Toleraqting po abx.
--- NOTE | 2021-08-09 08:28 | NUR ---
Patient resting in bed, eyes closed, respirations even and non labored. Patient has no notable distress. Bed alarm intact. Personal supplies and call light within reach.
--- NOTE | 2021-08-09 09:00 | NUR ---
[place] 10/325mg po admin for reports of head pain.
--- NOTE | 2021-08-09 11:38 | NUR ---
Physical therapy worked with patient. Per PT, patient ambulated to bathroom then back to bed using FWW. Pt did not tolerate very well. Please see their notes for futher details.
--- NOTE | 2021-08-09 12:22 | NUR ---
vOLTAREN 50MG PO ADMIN FOR REPORTS OF 7/10 NECK/HEAD PAIN.
--- NOTE | 2021-08-09 15:05 | NUR ---
Patient called to use restroom. This RN and INTERNET MARKETING DIRECTOR assisted patient to bedside commode then back to bed. Patient tolerated ambulated well. Dinner order placed. Patient reports she has head pain and dizziness when she stands and ambulates. Bed alarm intact.
--- NOTE | 2021-08-09 18:24 | NUR ---
Patient awake eating dinner and watching tv, no distress. Patient reports she is feeling a bit better this evening. No needs at this time. Personal supplies and call light within reach.
--- NOTE | 2021-08-09 18:44 | NUR ---
PT SAID "I THINK I WANT TO CALL MY SON ZAHIDA TO PICK ME UP IN THE MORNING AT 7" THIS RN SAID "DO YOU FEEL LIKE YOUR READY TO GO HOME?" PT SAID "NO, BUT I KEEP GETTING THREATENED THAT I GOING TO GET SENT TO A ALF" THIS RN SAID "IF YOU GO HOME BEFORE YOU ARE STRONG ENOUGH THERE IS A GOOD CHANCE OF YOU FALLING AND INJURING YOUSELF" SHE SAID "YES I KNOW, BUT I AM NOT GOING TO A ALF AND I CANT STAY HERE" THIS RN SAID "DO YOU THINK YOU COULD STAY AND WORK WITH PHYSICAL THERAPY TOMORROW AND SEE HOW IT GOES?" PT SAID "I GUESS" THEN SHE SAID "GOOD NIGHT" ...PT HAD CALLED TO REQUEST PAIN MEDICATION. PT REPORTS 9/10 PAIN AT HER BACK AND NECK, 1 TAB NORCO PO PRN ADMINISTERED AT THIS TIME.
--- NOTE | 2021-08-09 19:30 | NUR ---
pt medicated at 1840 with norco, and Voltaren at 1221, called c/o back and neck pain, very irritable mood, screamed at nurse, not receptive, bed alarm on. Pt in bed, repositions self, lights turned off in room. will review emar
--- NOTE | 2021-08-09 20:30 | NUR ---
c/o 7/10 h/a, back pain, declined ice packs or wet compress, Declined Benadryl IV. Very irritable, screaming at RN, semi receptive, alarm going off,pt sitting edge of bed. "I should just call my son to come and take me home, I can have a joint and meds that help me at home". Declines to elaborate further. Gets back to bed, Bed alarm on repositions self. no tremors, or diaphoresis noted at this time
--- NOTE | 2021-08-09 21:41 | NUR ---
pt continues to be very irritable, using foul mouth language, redirected. clmed down. alert and oriented. took meds w/o problems, sl RW not patent, removed, tip intact. FA SL patent. medicated with Benadryl per lighheadness after returning from BR. Pt got up to br no assist/fww. declined to use back brace, encouraged and placed on her several times and threw it off. low lumbar incision are healing very well. scabbed over areas top of incision. no redness around, no c/o tenderness during assessment. up to br, steady, strong and fast gait noted, voided, passed large amounts of rectal gas, no bm, back to bed w/o assist, and placed self into bed, repositioned self up in bed. Declined ice packs for back of neck and wet cold towel for forehead. CBG 70, given OJ with 2 packets of sugar, took Miralax mixed with cranberry juice too, popsicle and vanilla puding given on request. calmer at this time. very thankful and apologetic, slight hand tremors and moist forehead noted. denies visual changes, light tenderness not an issue when all lights were turned on for assessments. Bed alarm on
--- NOTE | 2021-08-09 22:26 | NUR ---
CIWA DONE EARLIER WAS 13. AT THIS TIME, SHE IS BED, EYES CLOSED, CALMER, MORE APPROPRIATE, OPENS EYES EASILY, SMILED, APOLOGIZED, WENT BACK TO SLEEP, NO TREMORS AT THIS TIME, CALM AND APPROPRIATE. STAED RELIEF FROM BENADRYL AND SCHEDULED PO MEDS GIVEN EARLIER, NO H/A, NO BACK PAIN. REPOSITIONS SELF IN BED, BED ALARM ON. ATE 1/2 POPSICLE, 1/2 OF OJ AND DID NOT TOUCH THE PUDIN WILL RECHECK CBG AT MIDNIGHT
--- NOTE | 2021-08-09 23:39 | NUR ---
uP TO EDGE OF BED, DENIES NEED TO GET OUT OF BED, NO FUIRTHER C/O PAIN. REPOSITIONS SELF BACK IN BED W/O PROBLEMS. BED ALARM ON, CALMER AND MORE APPORPRIATE VERBAL LANGUAGE. LIGHT TREMORS NOTED, NO MOISTURE ON FEREHEAD
--- NOTE | 2021-08-10 01:23 | NUR ---
RESTING, EYES CLOSED, NO DISTRESS, REPOSITIONS SELF IN BED. BED ALARM ON. CALL LIGHT AND FLUIDS AT HANDS REACH
--- NOTE | 2021-08-10 03:42 | NUR ---
UP TO BR, VOIDED, SBA/FWW DECLINES TO USE BACK BRACE, BACK TO BED, CALMER, COOPERATIVE AND MUCH MORE PLEASANT. PLACED SELF BACK IN BED. MEDICATED WITH VOLTAREN PER NECK AND LOW BACK PAIN. CBG 255 PER NURSING JUDGEMENT. HAS SLEPT VERY WELL, NO TREMORS NOTED AT THIS TIME
--- NOTE | 2021-08-10 05:00 | NUR ---
PT WAS VERY IRRITABLE, ANXIOUS, BELLIGERENT AND SCREAMING AT STAFF AT BEGINING OF SHIFT. NOTABLE INVOLUNTARY TREMORS NOTED, CIWA WAS DONE AT THAT TIME. RESULTS 13. CALMED DOWN. HAS BEEN MEDICATED WITH BENADRYL, VOLTAREN WITH FAIR RELIEF. UP TO BR SBA/FWW STRONG GAIT, DECLINED TO USE BACK BRACE EHEN UP, ASKED SEVERAL TIMES, NOT COOP. VOIDED AND GETS SELF TO BED, REPOSITIONS SELF.LOW LUMBAR AREA INCISION HEALED, SCABBING OVER HEALING. TOLERATING LIQUIDS WELL, NO BM 08/02, ON BOWEL REGIMEN. NO RESULTS FROM LACTULOSE GIVEN YESTERADAY IN AM SHIFT. ABD SOFT, KAMALA, NON TENDER. PASSING LARGE AMOUNTS OF RECTAL GAS. BED ALARM ON FOR FALL PRECAUTIONS. CALMER THIS AM, HAS SLEPT AT LEAST 3-4 CONSECUTIVE HOURS.
--- NOTE | 2021-08-10 10:00 | NUR ---
Patient up to restroom to void then back to bed, SBA with FWW. Patient did very well ambulating. Patient reports she was having "crazy dreams all night" so she did not sleep very well. Patient's head pain is tolerable at this time. Bed alarm intact. No current needs.
--- NOTE | 2021-08-10 11:48 | NUR ---
Patient awake sitting up in chair, no distress. Encouraged patient to call if she has needs. Personal supplies and call light within reach.
--- NOTE | 2021-08-10 12:18 | NUR ---
Education provided to patient on self administration of insulin. Patient able self admin her lunch time dose of insulin with this RN watching her. Will continue to work with patient.
--- NOTE | 2021-08-10 15:39 | NUR ---
Voltaren 50mg po admin for pain. Patient took a shower with LONG HAUL TRUCK DRIVER assist, tolerated very well. Patient awake, a&ox4 watching tv. Snack provided to patient at this time. Patient reports head/neck pain only when she moves. No current needs. Personal supplies and call light within reach.
--- NOTE | 2021-08-10 18:28 | NUR ---
Patient resting in bed, eyes closed, respirations even and non labored. Personal supplies and call light within reach.
--- NOTE | 2021-08-10 18:39 | NUR ---
Holder 10/325mg po admin for reports of 7/10 neck pain. Patient assisted to bathroom for void then back to bed. Patient provided with a snack and fresh water. No current needs. Bed alarm intact.
--- NOTE | 2021-08-10 20:36 | NUR ---
awake, juno, pleasant, denies c/o pain at this time. tolerating liquids well. coop with assessment, on room air, LBM / abd soft yvette, non tender, not distended. coop with CG 81, no coverage needed. lumbar incision healing. sl patent. turns and repositions self, Bed alarm on. tolerating liquids well
--- NOTE | 2021-08-10 23:51 | NUR ---
BED ALARM GOING OFF, SITTING EDGE OF BED, IRRITABLE MOOD, REDIRECTABLE. UP TO BR, SBA/FWW, TOLERATED WELL, NO SOB, NO GAIT PROBLEMS NOTED. C/O NECK TO BACK PAIN 01/07, MEDICATED WITH VOLTAREN PO, IN BED, REPOSITIONS SELF IN BED
--- NOTE | 2021-08-11 01:43 | NUR ---
restiang, eyes closed, no distress, on room air. call light at hands reach
--- NOTE | 2021-08-11 02:39 | NUR ---
used call light, c/o 03/09 neck to low back pain, medicated with 1 [place] tab. turns and repositions self in bed. Bed alarm on. pleasant, coop with assessment
--- NOTE | 2021-08-11 04:03 | NUR ---
Bed alarm going off, sitting edge of bed, Up to BR with 1PA/FWW, walked well, tolerated well, no sob noted on return. voided QS. tolerating fluids well, no emesis. no c/o pain at this time. irritable but easily redirectable, efforts praised. Bed alrm on
--- NOTE | 2021-08-11 05:06 | NUR ---
Awakens easily, denies c/o pain, "Jacobo comfortable", turns and repositions self in bed, tolerating liquids. Coop with vitals. Cont to encourage to wear back brace when up. semi receptive. Up to br using fww, good gait, irritable mood at times, easily redirectable, cooperative. no bm, voiding qs. Bed alarm on for safety.
--- NOTE | 2021-08-11 07:30 | NUR ---
PT AWAKE IN BED. PT IS CONFUSED AND SEEING A CAT IN THE CORNER AND THOUGHT HER DAUGHTER WAS IN THE CHAIR IN HER ROOM ALL NIGHT. PT IS UPSET BY THIS. PT UP TO BATHROOM AND IS IMPULSIVE WITH AMBULATION. PT NOW BACK TO BED, BED ALARM ON, CALL LIGHT IN REACH, WHITE BOARD UPDATED. NO FURTHER NEEDS AT THIS TIME.
--- NOTE | 2021-08-11 07:30 | NUR ---
PATIENT RESTING QUIETLY IN SEMI-FOWLERS POSITION, EYES CLOSED, RESPIRATIONS ARE REGULAR AND EVEN, CALL LIGHT IS IN REACH. PATIENT HAS NO CURRENT CARE NEEDS AT THIS TIME.
--- NOTE | 2021-08-11 09:30 | NUR ---
PATIENT HAS C/O BACK PAIN 10/ AND PO VOLTAREN GIVEN WITH OTHER AM MEDS. PATIENT 1PA TO [facility] IN HER BACK BRACE WITH FWW WITH THE THIS RN AND BACK TO BED WITH SAIRA BARAJAS. PATIENT NOW EATING BREAKFAST AND HOPING FOR DISCHARGE. CALL LIGHT IS IN REACH.
[2021-08-11] MEDS ORDERED: GABAPENTIN600 MG PO (09:56)
[2021-08-11] MEDS ORDERED: MOVANTIK25 MG PO (09:57)
[2021-08-11] MEDS ORDERED: RISPERIDONE M-0.5 MG PO (09:57)
[2021-08-11] MEDS ORDERED: LANTUS SOL100 UNIT/1 SUB-Q (09:58)
[2021-08-11] MEDS ORDERED: INSULIN PEN NE1 EAC2 MISC (10:22)
--- NOTE | 2021-08-11 10:33 | NUR ---
PER DR. HASSAN PATIENT PREFERS TO DISCHARGE HOME AT THIS TIME AND IS NOT INTERESTED IN PLACEMENT. PATIENT HAS WALKER AT HOME. NO FURTHER NEEDS AT THIS TIME.
[2021-08-11] MEDS ORDERED: [UNRECOGNIZED DRUG - SUPPLY] ID (11:43)
== END 2021-08-11 12:30 | disposition home or self-care (01) | DRG 92 ==
LOC: ED 07:32 → CCU 07:34 → MS 08-05 09:43 → CCU 08-05 09:44 → MS 08-06 13:15
PROVIDERS: ADMIT Internal Medicine; ATTEND Internal Medicine
DX: G92.8 Other toxic encephalopathy (principal); F32.3 Major depressive disorder, single episode, severe with psychotic features; Z20.822 Contact with and (suspected) exposure to COVID-19; E11.65 Type 2 diabetes mellitus with hyperglycemia; G43.909 Migraine, unspecified, not intractable, without status migrainosus; M47.812 Spondylosis without myelopathy or radiculopathy, cervical region; M54.50 Low back pain, unspecified; M47.816 Spondylosis without myelopathy or radiculopathy, lumbar region; G89.29 Other chronic pain; M79.7 Fibromyalgia; F17.210 Nicotine dependence, cigarettes, uncomplicated; Z90.710 Acquired absence of both cervix and uterus; Z79.899 Other long term (current) drug therapy
CPT/HCPCS: 36415; 70450; 70551; 71045; 72132; 72141; 80048; 80053; 80202; 81001; 83036; 83605; 83735; 85025; 86140; 87040; 96375; 97110; 97112; 97116; 97162; 97166; 97530; 99285-25; A9270; C9803; J0692; J0780; J1200; J1650; J1815; J1885; J2060; J2250; J3370; J3475; J3480; J7030; J7060; J7120; U0003